=== PATIENT | male | born 1980 | race Caucasian/White ===

== ENCOUNTER 2017-01-06 12:26 | Emergency (ER) | payer SELFPAY ==
[~2017-01-06] VITALS: Ht 175.3 cm; Wt 53.2 kg
[2017-01-06 12:31] VITALS: BP 131/84; PULSE 95; RESP 18; TEMP 98.3
[2017-01-06 12:40] VITALS: O2SAT 99
--- NOTE | 2017-01-06 12:57 | PD ---
HPI Chief Complaint: Abdominal Pain Time Seen by Provider: 12:40 Travel History International Travel<30 days: No Contact w/Intl Traveler<30days: No Traveled to known affect area: No History of Present Illness HPI This patient has history of Crohn's disease. He doesn't follow with any physician or take medications or go to doctors. He has history of 2 small bowel resections. He reports she's having a flare of Crohn's. He is worried about obstruction. He's had no bowel movement for the last 3 days. He typically has multiple episodes of diarrhea daily as his baseline. He's had some low-grade discomfort and some nausea but no vomiting or fever. Symptoms severity is moderate. Duration 3 days. No alleviating factors. No exacerbating factors. PFSH Past Medical History Diminished Hearing: No Gastrointestinal Disorders: Yes (crohns) Immunizations Current: No Tetanus Vaccination: > 5 Years Influenza Vaccination: No Past Surgical History Abdominal Surgery: Yes (colon resection with ostomy reversal) Appendectomy: Yes Social History Alcohol Use: No Tobacco Use: Yes (02/28 pk) Substance Use: Yes (pot) Allergies-Medications (Allergen,Severity, Reaction): Coded Allergies: No Known Allergies (Unverified , 01/06/17) Reported Meds & Prescriptions Reported Meds & Active Scripts Active No Active Prescriptions or Reported Medications Review of Systems General / Constitutional: No: Fever Eyes: No: Visual changes HENT: No: Headaches Cardiovascular: No: Chest Pain or Discomfort Respiratory: No: Shortness of Breath Gastrointestinal: Positive: Nausea, Abdominal Pain, Constipation Genitourinary: No: Dysuria Musculoskeletal: No: Pain Skin: No Rash Neurologic: No: Weakness Psychiatric: No: Depression Endocrine: No: Polydipsia Hematologic/Lymphatic: No: Easy Bruising Physical Exam Narrative GENERAL: Well-nourished, well-developed patient with abdominal discomfort . SKIN: Focused skin assessment reveals no rash and nodules. Skin is Warm and dry. HEAD: Atraumatic. Normocephalic. EYES: Pupils equal and round. No scleral icterus. No injection or drainage. ENT: No nasal bleeding or discharge. Mucous membranes pink and moist. NECK: Trachea midline. No JVD. CARDIOVASCULAR: Regular rate and rhythm. No murmur appreciated. RESPIRATORY: No accessory muscle use. Clear to auscultation. Breath sounds equal bilaterally. GASTROINTESTINAL: Abdomen soft, mild diffuse tenderness without rebound or guarding. Well-healed surgical scars. nondistended. Hepatic and splenic margins not palpable. MUSCULOSKELETAL: No obvious deformities. No clubbing. No cyanosis. No edema. NEUROLOGICAL: Awake and alert. No obvious cranial nerve deficits. Motor grossly within normal limits. Normal speech. PSYCHIATRIC: Appropriate mood and affect; insight and judgment normal. Data Data Last Documented VS Vital Signs Date Time Temp Pulse Resp B/P (MAP) Pulse Ox O2 Delivery O2 Flow Rate FiO2 01/06/17 13:29 72 18 136/75 (95) 99 Room Air 01/06/17 12:31 98.3 Orders Orders Complete Blood Count With Diff (01/06/17 12:48) Comprehensive Metabolic Panel (01/06/17 12:48) Lipase (01/06/17 12:48) Prothrombin Time / Inr (Pt) (01/06/17 12:48) Act Partial Throm Time (Ptt) (01/06/17 12:48) Ct Abd/Pel W Iv Contrast(Rout) (01/06/17 12:48) Iv Access Insert/Monitor (01/06/17 12:48) Ecg Monitoring (01/06/17 12:48) Oximetry (01/06/17 12:48) Ondansetron Inj (Zofran Inj) (01/06/17 13:00) Sodium Chloride 0.9% Flush (Ns Flush) (01/06/17 13:00) Sodium Chlor 0.9% 1000 Ml Inj (Ns 1000 M (01/06/17 13:00) Iohexol 350 Inj (Omnipaque 350 Inj) (01/06/17 13:16) Labs Laboratory Tests Test 01/06/17 12:50 White Blood Count 12.6 TH/MM3 Red Blood Count 4.23 MIL/MM3 Hemoglobin 12.5 GM/DL Hematocrit 37.8 % Mean Corpuscular Volume 89.3 FL Mean Corpuscular Hemoglobin 29.5 PG Mean Corpuscular Hemoglobin Concent 33.0 % Red Cell Distribution Width 13.1 % Platelet Count 352 TH/MM3 Mean Platelet Volume 7.2 FL Neutrophils (%) (Auto) 78.1 % Lymphocytes (%) (Auto) 11.5 % Monocytes (%) (Auto) 6.1 % Eosinophils (%) (Auto) 0.6 % Basophils (%) (Auto) 3.7 % Neutrophils # (Auto) 9.7 TH/MM3 Lymphocytes # (Auto) 1.5 TH/MM3 Monocytes # (Auto) 0.8 TH/MM3 Eosinophils # (Auto) 0.1 TH/MM3 Basophils # (Auto) 0.5 TH/MM3 CBC Comment DIFF FINAL Differential Comment Prothrombin Time 10.6 SEC Prothromb Time International Ratio 1.0 RATIO Activated Partial Thromboplast Time 34.6 SEC Blood Urea Nitrogen 5 MG/DL Creatinine 0.66 MG/DL Random Glucose 102 MG/DL Total Protein 7.3 GM/DL Albumin 3.6 GM/DL Calcium Level 9.1 MG/DL Alkaline Phosphatase 55 U/L Aspartate Amino Transf (AST/SGOT) 8 U/L Alanine Aminotransferase (ALT/SGPT) 12 U/L Total Bilirubin 0.2 MG/DL Sodium Level 138 MEQ/L Potassium Level 3.2 MEQ/L Chloride Level 102 MEQ/L Carbon Dioxide Level 29.9 MEQ/L Estimat Glomerular Filtration Rate 138 ML/MIN Lipase 109 U/L [facility] Medical Decision Making Medical Screen Exam Complete: Yes Emergency Medical Condition: Yes Medical Record Reviewed: Yes Differential Diagnosis Obstruction, colitis, ileus Narrative Course I have reviewed the patient's electronic medical record. IV placed CBC is normal metabolic profile is normal except for mild hypokalemia LFT's are normal lipase is normal CT of abdomen and pelvis with IV contrast shows no obstruction. There is some thickening inflammation of the intestine near the ileum I gave him IV Zofran and 1 L normal saline IV I gave him injection of morphine and Solu-Medrol Clinically stable for outpatient follow-up. He has normal vitals Recommend GI follow-up I wrote him something for pain and nausea and some prednisone Diagnosis Primary Impression: Exacerbation of Crohn's disease Qualified Codes: K50.919 - Crohn's disease, unspecified, with unspecified complications Additional Instructions: The patient was advised to follow up with GI physician and return if they worsen. The patient was warned about potential sedation for the medications they will receive on prescription. Med/Other Pt SpecificInfo: Prescription(s) given Scripts No Active Prescriptions or Reported Meds Disposition: 01 DISCHARGE HOME Condition: Stable Luis Enrique Walker MD Jan 06, 2017 12:57
[2017-01-06] MEDS ORDERED: SODIUM CHLOR 0.9% 1000 ML INJ 1,000 ML IV ONE (13:00)
[2017-01-06] MEDS ORDERED: SODIUM CHLORIDE 0.9% FLUSH 10 ML FLUSH IV FLUSH PRN (13:00)
[2017-01-06] MEDS ORDERED: ONDANSETRON HCL 4 MG/2 ML VIAL IVP ONE (13:00)
[2017-01-06 13:01] LABS: AUTOMATED NEUTROPHIL # 9.7 TH/MM3 (1.8-7.7); BASOPHIL # 0.5 TH/MM3 (0-0.2); BASOPHIL % 3.7 % (0.0-2.0); EOSINOPHIL # 0.1 TH/MM3 (0-0.4); EOSINOPHIL % 0.6 % (0.0-4.0); HEMATOCRIT 37.8 % (39.0-51.0); HEMO FLAGS DIFF FINAL; LYMPH % 11.5 % (9.0-44.0); LYMPHOCYTE # 1.5 TH/MM3 (1.0-4.8); MEAN CELL VOLUME 89.3 FL (80.0-100.0); MEAN CORPUSCULAR HEMOGLOBIN 29.5 PG (27.0-34.0); MONO % 6.1 % (0.0-8.0); NEUT % 78.1 % (16.0-70.0); PLATELET COUNT 352 TH/MM3 (150-450); RED BLOOD COUNT 4.23 MIL/MM3 (4.50-5.90); RED CELL DISTRIBUTION WIDTH 13.1 % (11.6-17.2); WHITE BLOOD COUNT 12.6 TH/MM3 (4.0-11.0)
[2017-01-06 13:06] VITALS: BP 147/67; PULSE 82; RESP 18; O2SAT 99
[2017-01-06] MEDS ORDERED: IOHEXOL 350 MG/ML 10 ML VIAL (for RAD DIAG) IVCONTRAST ONE (13:16)
[2017-01-06 13:25] LABS: CHLORIDE 102 MEQ/L (98-107); POTASSIUM 3.2 MEQ/L (3.5-5.1); SODIUM (NA) 138 MEQ/L (136-145)
[2017-01-06 13:29] VITALS: BP 136/75; PULSE 72; RESP 18; O2SAT 99
[2017-01-06 13:29] LABS: ANION GAP 6 MEQ/L (5-15); BICARBONATE 29.9 MEQ/L (21.0-32.0); BLOOD UREA NITROGEN 5 MG/DL (7-18)
--- NOTE | 2017-01-06 13:30 | RADRPT ---
EXAM DATE/TIME: 01/06/2017 13:10 [facility] COMPARISON: No previous studies available for comparison. INDICATIONS : Right lower quadrant pain. Constipation x 3 days. IV CONTRAST: 85 cc Omnipaque 350 (iohexol) IV ORAL CONTRAST: No oral contrast ingested. RADIATION DOSE: 4.66 CTDIvol (mGy) MEDICAL HISTORY : Crohn's disease. SURGICAL HISTORY : Appendectomy. Colon resection with ostomy reversal. ENCOUNTER: Initial ACUITY: 3 days PAIN SCALE: 7/10 LOCATION: Right lower quadrant TECHNIQUE: Volumetric scanning of the abdomen and pelvis was performed. Using automated exposure control and ad justment of the mA and/or kV according to patient size, radiation dose was kept as low as reasonably achievable to obtain optimal diagnostic quality images. DICOM format image data is available electro nically for review and comparison. FINDINGS: LOWER LUNGS: The visualized lower lungs are clear. LIVER: Homogeneous density without lesion. There is no dilation of the biliary tree. No calcified gallston es. SPLEEN: Normal size without lesion. PANCREAS: Within normal limits. KIDNEYS: Normal in size and shape. There is no mass, stone or hydronephrosis. ADRENAL GLANDS: Within normal limits. VASCULAR: There is no aortic aneurysm. BOWEL/MESENTERY: Dystrophic calcifications are seen in the region of the terminal ileum in the right lower abdominal q uadrant. Just proximal to the calcifications, the ileum is thickened with some perienteric stranding concerning for a focal colitis. There is some distention of the small bowel in this location. He the colon appears radiographically intact throughout. ABDOMINAL WALL: Within normal limits. RETROPERITONEUM: There is no lymphadenopathy. BLADDER: No wall thickening or mass. REPRODUCTIVE: Within normal limits. INGUINAL: There is no lymphadenopathy or hernia. MUSCULOSKELETAL: Within normal limits for patient age. CONCLUSION: 1. Dystrophic calcifications in the region of the terminal ileum may represent a prior suture line. 2. Just proximal to the dystrophic type calcifications, the ileum is abnormally thickened and distend ed with perienteric stranding concerning for focal colitis. This is characteristic of the reported hi story of Crohn's disease. 3. Otherwise negative. No pneumoperitoneum. Kosta Conde MD on January 06, 2017 at 13:21 Board Certified Radiologist. This report was verified electronically.
[2017-01-06 13:31] LABS: APTT (PATIENT) 34.6 SEC (24.3-30.1); PROTHROMBIN TIME - PATIENT 10.6 SEC (9.8-11.6)
[2017-01-06 13:32] LABS: ALT (GPT) 12 U/L (12-78); AST (GOT) 8 U/L (15-37); GLOMERULAR FILTRATION RATE 138 ML/MIN (>89)
[2017-01-06 13:33] LABS: TOTAL BILIRUBIN ADULT 0.2 MG/DL (0.2-1.0)
[2017-01-06 13:35] LABS: ALKALINE PHOSPHATASE 55 U/L (45-117)
[2017-01-06] MEDS ORDERED: methylPREDNISolone SOD SUCC 125 MG/2 ML VIAL IV PUSH ONE (14:00)
[2017-01-06] MEDS ORDERED: MORPHINE SULFATE 8 MG/ML INJ IV PUSH ONE (14:00)
[2017-01-06] MEDS ORDERED: MORPHINE SULFATE 4 MG/ML INJ IV PUSH ONE (14:00)
[2017-01-06] MEDS ORDERED: ZOFR4TAB PO (14:06)
[2017-01-06] MEDS ORDERED: PERC5TAB12 PO (14:06)
[2017-01-06] MEDS ORDERED: PRED20 PO (14:06)
[2017-01-06 14:14] VITALS: BP 123/75; PULSE 72; RESP 16; O2SAT 98
== END 2017-01-06 14:56 | disposition home or self-care (01) ==
LOC: PHED 12:26
DX: K50.919 Crohn's disease, unspecified, with unspecified complications (principal); E87.6 Hypokalemia; R11.0 Nausea; F17.200 Nicotine dependence, unspecified, uncomplicated; Z87.19 Personal history of other diseases of the digestive system
CPT/HCPCS: 74177; 80053; 83690; 85025; 85610; 85730; 96361; 96374; 96375; 96376; 99285; J2270; J2405; J2930; J7030; Q9967

== ENCOUNTER 2017-01-10 11:40 | Inpatient (IN) | payer SELFPAY ==
[~2017-01-10] VITALS: Ht 175.3 cm; Wt 54.0 kg
[~2017-01-10 11:40] MED LIST: PERC5TAB12 PO; PRED20 PO; ZOFR4TAB PO
[2017-01-10 11:43] VITALS: BP 123/78; PULSE 74; RESP 20; TEMP 98; O2SAT 100
[2017-01-10] MEDS ORDERED: SODIUM CHLORIDE 0.9% FLUSH 10 ML FLUSH IV FLUSH PRN (12:00)
[2017-01-10] MEDS ORDERED: ONDANSETRON HCL 4 MG/2 ML VIAL IVP ONE (12:00)
[2017-01-10] MEDS ORDERED: MORPHINE SULFATE 4 MG/ML INJ IV PUSH ONE (12:00)
[2017-01-10] MEDS ORDERED: SODIUM CHLOR 0.9% 1000 ML INJ 1,000 ML IV SCH (12:00)
--- NOTE | 2017-01-10 12:14 | PD ---
HPI Chief Complaint: GI Complaint Time Seen by Provider: 11:52 Travel History International Travel<30 days: No Contact w/Intl Traveler<30days: No Traveled to known affect area: No History of Present Illness HPI Patient is a 40-year-old male with history of Crohn's disease, presents to emergency room with complaint of abdominal pain. Patient reports that he began to have lower abdominal pain 8 days ago, that he has been feeling nauseous, reports overall decreased oral intake, reports that he has been constipated. Patient reports that he has not followed-up with a simulation educator as he currently does not have any insurance. He reports that he was seen in the emergency room on January 06, 2017 with similar symptoms, he did have a CAT scan of his abdomen pelvis which shows symptoms of consistent with Crohn's disease.. Patient reports that since he has left, he has had intermittent lower abdominal pain. Patient reports that when he has these bouts of pain, pain is severe with increased nausea with no vomiting. Patient reports that pain feels like a cramping sensation to his lower abdomen. Reports no formed bowel movements, he did have a slightly water stool recently. Patient reports that he has had history of perforated appendicitis which led to a bowel resection as well as placement of an ostomy with reversal in 2002 in [place]. Patient with subjective fever and chills, no other complaints at this time. Patient reports that he is a past alcoholic, he has been sober for 4 months PFSH Past Medical History Diminished Hearing: No Gastrointestinal Disorders: Yes (crohns) Immunizations Current: No ?: Not Past Surgical History Abdominal Surgery: Yes (colon resection with ostomy reversal) Appendectomy: Yes Social History Alcohol Use: No Tobacco Use: Yes (02 27/ pk) Substance Use: Yes (pot) Allergies-Medications (Allergen,Severity, Reaction): Coded Allergies: No Known Allergies (Unverified , 01/10/17) Reported Meds & Prescriptions Reported Meds & Active Scripts Active Prednisone 20 Mg Tab 60 Mg PO DAILY 5 Days Take 40 mg (2 tablets) daily for 5 days Zofran (Ondansetron HCl) 4 Mg Tab 4 Mg PO Q6HR PRN Percocet (Oxycodone-Acetaminophen) 5-325 mg Tab 1 Tab PO Q6H PRN Review of Systems General / Constitutional: Positive: Fever (subjective fevers), Chills Eyes: No: Visual changes HENT: No: Headaches Cardiovascular: No: Chest Pain or Discomfort Respiratory: No: Shortness of Breath Gastrointestinal: Positive: Nausea, Abdominal Pain, Constipation, No: Vomiting , Diarrhea Genitourinary: No: Dysuria Musculoskeletal: No: Pain Skin: No Rash Neurologic: No: Weakness Psychiatric: No: Depression Endocrine: No: Polydipsia Hematologic/Lymphatic: No: Easy Bruising Physical Exam Narrative GENERAL: Moderate distress SKIN: Focused skin assessment warm/dry. HEAD: Atraumatic. Normocephalic. EYES: Pupils equal and round. No scleral icterus. No injection or drainage. ENT: No nasal bleeding or discharge. Mucous membranes pink and moist. NECK: Trachea midline. No JVD. CARDIOVASCULAR: Regular rate and rhythm. No murmur appreciated. RESPIRATORY: No accessory muscle use. Clear to auscultation. Breath sounds equal bilaterally. GASTROINTESTINAL: Abdomen soft, diffusely tender with rebound and guarding on exam. Hepatic and splenic margins not palpable. MUSCULOSKELETAL: No obvious deformities. No clubbing. No cyanosis. No edema. NEUROLOGICAL: Awake and alert. No obvious cranial nerve deficits. Motor grossly within normal limits. Normal speech. PSYCHIATRIC: Appropriate mood and affect; insight and judgment normal. Data Data Last Documented VS Vital Signs Date Time Temp Pulse Resp B/P (MAP) Pulse Ox O2 Delivery O2 Flow Rate FiO2 01/10/17 12:26 61 18 115/78 (90) 98 Room Air 01/10/17 11:43 98.0 Orders Orders Complete Blood Count With Diff (01/10/17 12:00) Comprehensive Metabolic Panel (01/10/17 12:00) Lipase (01/10/17 12:00) Prothrombin Time / Inr (Pt) (01/10/17 12:00) Act Partial Throm Time (Ptt) (01/10/17 12:00) Urinalysis - C+S If Indicated (01/10/17 12:00) Ct Abd/Pel W Iv Contrast(Rout) (01/10/17 12:00) Iv Access Insert/Monitor (01/10/17 12:00) Ecg Monitoring (01/10/17 12:00) Oximetry (01/10/17 12:00) NPO (01/10/17 12:00) Morphine Inj (Morphine Inj) (01/10/17 12:00) Ondansetron Inj (Zofran Inj) (01/10/17 12:00) Sodium Chlor 0.9% 1000 Ml Inj (Ns 1000 M (01/10/17 12:00) Sodium Chloride 0.9% Flush (Ns Flush) (01/10/17 12:00) Oral Contrast - Adult (01/10/17 12:05) Diatrizoate Liq (Md Queen Liq) (01/10/17 12:17) Hydromorphone Pf Inj (Dilaudid Pf Inj) (01/10/17 13:15) Potassium Chloride (Kcl) (01/10/17 13:15) Iohexol 350 Inj (Omnipaque 350 Inj) (01/10/17 13:51) Consult General Surgery (01/10/17 ) Labs Laboratory Tests Test 01/10/17 12:14 01/10/17 13:10 White Blood Count 12.4 TH/MM3 Red Blood Count 4.44 MIL/MM3 Hemoglobin 13.1 GM/DL Hematocrit 39.7 % Mean Corpuscular Volume 89.4 FL Mean Corpuscular Hemoglobin 29.4 PG Mean Corpuscular Hemoglobin Concent 32.9 % Red Cell Distribution Width 12.9 % Platelet Count 420 TH/MM3 Mean Platelet Volume 7.0 FL Neutrophils (%) (Auto) 75.8 % Lymphocytes (%) (Auto) 17.1 % Monocytes (%) (Auto) 6.2 % Eosinophils (%) (Auto) 0.2 % Basophils (%) (Auto) 0.7 % Neutrophils # (Auto) 9.4 TH/MM3 Lymphocytes # (Auto) 2.1 TH/MM3 Monocytes # (Auto) 0.8 TH/MM3 Eosinophils # (Auto) 0.0 TH/MM3 Basophils # (Auto) 0.1 TH/MM3 CBC Comment DIFF FINAL Differential Comment Prothrombin Time 10.6 SEC Prothromb Time International Ratio 1.0 RATIO Activated Partial Thromboplast Time 28.5 SEC Blood Urea Nitrogen 7 MG/DL Creatinine 0.78 MG/DL Random Glucose 87 MG/DL Total Protein 6.9 GM/DL Albumin 3.6 GM/DL Calcium Level 9.1 MG/DL Alkaline Phosphatase 48 U/L Aspartate Amino Transf (AST/SGOT) 7 U/L Alanine Aminotransferase (ALT/SGPT) 12 U/L Total Bilirubin 0.3 MG/DL Sodium Level 140 MEQ/L Potassium Level 3.0 MEQ/L Chloride Level 103 MEQ/L Carbon Dioxide Level 28.3 MEQ/L Anion Gap 9 MEQ/L Estimat Glomerular Filtration Rate 114 ML/MIN Lipase 279 U/L Urine Collection Type CLEAN CATCH Urine Color STRAW Urine Turbidity CLEAR Urine pH 8.0 Urine Specific Claude 1.003 Urine Protein NEG mg/dL Urine Glucose (UA) NEG mg/dL Urine Ketones NEG mg/dL Urine Occult Blood NEG Urine Nitrite NEG Urine Bilirubin NEG Urine Leukocyte Esterase NEG Urine Squamous Epithelial Cells 0-5 /hpf Microscopic Urinalysis Comment CULT NOT INDICATED MDM Medical Decision Making Medical Screen Exam Complete: Yes Emergency Medical Condition: Yes Medical Record Reviewed: Yes Interpretation(s) Vital Signs Date Time Temp Pulse Resp B/P (MAP) Pulse Ox O2 Delivery O2 Flow Rate FiO2 01/10/17 11:43 98.0 74 20 123/78 (93) 100 Differential Diagnosis Crohn's exacerbation, small bowel obstruction, electrolyte abnormality Narrative Course 36 year old male who presents to emergency room with complaints of lower abdominal pain with nausea, constipation for the past 8 days. Patient's prior records reviewed, he did have a CT of his abdomen and pelvis 4 days ago. Given his diffuse abdominal pain with rebound and guarding, I discussed need for repeat CT of the abdomen pelvis. I did review all the risks as well as benefits of the CT study with him in detail. During the course of the patients emergency department visit, the patients history, examination, and differential diagnosis were reviewed with the patient. The patient was placed on a monitor tech with oximetry and frequent blood pressure monitoring. The patient had a 20-gauge IV access obtained and blood work sent for analysis. The patient was initially provided IVF, IV Zofran and IV Morphine The patients laboratory studies were reviewed and remarkable for CBC & BMP Diagram 01/10/17 12:14 Total Protein 6.9, Albumin 3.6, Calcium Level 9.1, Alkaline Phosphatase 48, Aspartate Amino Transf (AST/SGOT) 7 L, Alanine Aminotransferase (ALT/SGPT) 12, Total Bilirubin 0.3 UA: Negative leuk esterase, negative ketones, negative nitrites 1315: patient re-evaluated, patient continued pain with no relief from IV morphine, IV dilaudid ordered for patient Radiology studies were reviewed and remarkable for: Last Impressions Abdomen/Pelvis CT 01/10/17 1200 Signed Impressions: Service Date/Time: Tuesday, January 10, 2017 13:45 - CONCLUSION: 1. Abnormal appearance of the distal ileum. There has been previous ileocecal anastomosis. There is transmural inflammatory change and at least high grade partial obstruction at the anastomosis with distended, dilated loops of ileum proximal to this. The loops of ileum measure approximately 4 cm in diameter. The overall size of this has worsened when compared to prior exam. There is a small amount of free fluid within the pelvis. Miguel Kennedy MD Case reviewed with Dr. Sosa, patient can see at [facility] for monitoring, he may need to be transferred to the [facility] for possible surgery if obstruction does not resolve on its own. Request GI consult. Will see patient in consult. Patient okay for no NG tube if patient is not nauseous and vomiting at this time. Diagnosis Primary Impression: Crohns disease Additional Impression: Bowel obstruction Admitting Information Admitting Physician Requests: Admit Alexa Somers DO Jan 10, 2017 12:14
[2017-01-10] MEDS ORDERED: DIATRIZOATE MEGLUM/DIATRIZOATE SOD 9 ML CUP ONE (12:17)
[2017-01-10 12:22] LABS: AUTOMATED NEUTROPHIL # 9.4 TH/MM3 (1.8-7.7); BASOPHIL # 0.1 TH/MM3 (0-0.2); BASOPHIL % 0.7 % (0.0-2.0); EOSINOPHIL % 0.2 % (0.0-4.0); HEMATOCRIT 39.7 % (39.0-51.0); HEMO FLAGS DIFF FINAL; LYMPH % 17.1 % (9.0-44.0); LYMPHOCYTE # 2.1 TH/MM3 (1.0-4.8); MEAN CELL VOLUME 89.4 FL (80.0-100.0); MEAN CORPUSCULAR HEMOGLOBIN 29.4 PG (27.0-34.0); MEAN CORPUSCULAR HGB CONC 32.9 % (32.0-36.0); MONO % 6.2 % (0.0-8.0); NEUT % 75.8 % (16.0-70.0); PLATELET COUNT 420 TH/MM3 (150-450); RED BLOOD COUNT 4.44 MIL/MM3 (4.50-5.90); RED CELL DISTRIBUTION WIDTH 12.9 % (11.6-17.2); WHITE BLOOD COUNT 12.4 TH/MM3 (4.0-11.0)
[2017-01-10 12:23] VITALS: O2SAT 96
[2017-01-10 12:26] VITALS: BP 115/78; PULSE 61; RESP 18; O2SAT 98
[2017-01-10 12:30] LABS: CHLORIDE 103 MEQ/L (98-107); SODIUM (NA) 140 MEQ/L (136-145)
[2017-01-10 12:36] LABS: APTT (PATIENT) 28.5 SEC (24.3-30.1); PROTHROMBIN TIME - PATIENT 10.6 SEC (9.8-11.6)
[2017-01-10 12:37] LABS: ANION GAP 9 MEQ/L (5-15); BICARBONATE 28.3 MEQ/L (21.0-32.0); BLOOD UREA NITROGEN 7 MG/DL (7-18)
[2017-01-10 12:40] LABS: ALT (GPT) 12 U/L (12-78); AST (GOT) 7 U/L (15-37); GLOMERULAR FILTRATION RATE 114 ML/MIN (>89)
[2017-01-10 12:41] LABS: TOTAL BILIRUBIN ADULT 0.3 MG/DL (0.2-1.0)
[2017-01-10 12:42] LABS: ALKALINE PHOSPHATASE 48 U/L (45-117)
[2017-01-10] MEDS ORDERED: POTASSIUM CHLORIDE 10 MEQ CONTROLLED RELEASE TAB PO ONE (13:15)
[2017-01-10] MEDS ORDERED: HYDROmorphone HCL PF 1 MG/ML VIAL IV PUSH ONE (13:15)
[2017-01-10 13:17] LABS: BLOOD, URINE NEG (NEG); GLUCOSE,URINE NEG (NEG); KETONE, URINE NEG (NEG); NITRITE,URINE NEG (NEG)
[2017-01-10 13:22] LABS: COMMENT (UR) CULT NOT INDICATED; CULTURE IF INDICATED CULT NOT INDICATED; METHOD OF COLLECTION CLEAN CATCH; SQUAMOUS EPITHELIAL CELL URINE 0-5 /hpf (0-5); URINE COLOR STRAW (YELLW/STRAW)
[2017-01-10] MEDS ORDERED: IOHEXOL 350 MG/ML 10 ML VIAL (for RAD DIAG) IVCONTRAST ONE (13:51)
--- NOTE | 2017-01-10 14:11 | RADRPT ---
EXAM DATE/TIME: 01/10/2017 13:45 [facility] COMPARISON: CT ABDOMEN & PELVIS W CONTRAST, January 06, 2017, 13:10. INDICATIONS : Diffuse abdominal pain with constipation for five days getting worse since last visit. IV CONTRAST: 90 cc Omnipaque 350 (iohexol) IV ORAL CONTRAST: Prescribed oral contrast ingested. RADIATION DOSE: 5.18 CTDIvol (mGy) MEDICAL HISTORY : Crohn's disease. SURGICAL HISTORY : Appendectomy. Colon surgery. ENCOUNTER: [facility] ACUITY: 4 - 6 days PAIN SCALE: 6/10 LOCATION: Bilateral abdomen/pelvis TECHNIQUE: Volumetric scanning of the abdomen and pelvis was performed. Using automated exposure control and ad justment of the mA and/or kV according to patient size, radiation dose was kept as low as reasonably achievable to obtain optimal diagnostic quality images. DICOM format image data is available electro nically for review and comparison. FINDINGS: The limited portion of the lung base visualized is clear. The appearance of the liver, spleen, pancreas, adrenal glands and kidneys is within normal limits. Examination of the visualized loops of small large bowel demonstrate a significantly dilated loop of distal ileum in the pelvis. There is focal inflammatory change and thickening of the distal portion o f ileum. There appears to have been an ileocecal anastomosis. The exam would suggest an inflammatory bowel disease with active disease resulting in high grade partial bowel obstruction the region of the anastomosis. This appears to worsened when compared to prior exam. There is a small amount of free f luid within the pelvis. No free air is identified. The visualized bony structures are intact. CONCLUSION: 1. Abnormal appearance of the distal ileum. There has been previous ileocecal anastomosis. There is t ransmural inflammatory change and at least high grade partial obstruction at the anastomosis with dis tended, dilated loops of ileum proximal to this. The loops of ileum measure approximately 4 cm in mikael meter. The overall size of this has worsened when compared to prior exam. There is a small amount of free fluid within the pelvis. Miguel Kennedy MD on January 10, 2017 at 13:55 Board Certified Radiologist. This report was verified electronically.
[2017-01-10] MEDS ORDERED: MAGNESIUM HYDROXIDE SUSP 30 ML CUP PO PRN (14:30)
[2017-01-10] MEDS ORDERED: ONDANSETRON HCL 4 MG/2 ML VIAL IVP PRN (14:30)
[2017-01-10] MEDS ORDERED: HYDROmorphone HCL PF 1 MG/ML VIAL IV PUSH PRN (14:30)
[2017-01-10] MEDS ORDERED: BISACODYL 10 MG SUPP RECTAL PRN (14:30)
[2017-01-10] MEDS ORDERED: SENNOSIDES 8.6 MG TAB PO PRN (14:30)
[2017-01-10] MEDS ORDERED: LACTULOSE SYRUP 20 GM/30 ML CUP PO PRN (14:30)
[2017-01-10] MEDS ORDERED: NALOXONE HCL 0.4 MG/ML AMP IV PUSH PRN (14:30)
[2017-01-10 14:37] VITALS: BP 114/77; PULSE 64; RESP 18; O2SAT 97
[2017-01-10] MEDS: SODIUM CHLOR 0.9% 1000 ML INJ 1,000 ML IV SCH (14:51)
[2017-01-10] MEDS: CIPROFLOXACIN 200 MG PREMIX 100 ML IV SCH (14:51)
[2017-01-10 15:50] VITALS: BP 130/88; PULSE 54; RESP 16; TEMP 98.6; O2SAT 99
[2017-01-10] MEDS: methylPREDNISolone SOD SUCC 125 MG/2 ML VIAL IV PUSH SCH ×2 (15:55→20:14)
[2017-01-10] MEDS: metroNIDAZOLE 500 MG INJ 100 ML IV SCH ×2 (15:56→21:25)
[2017-01-10] MEDS: HYDROmorphone HCL PF 1 MG/ML VIAL IV PUSH PRN ×3 (16:09→23:25)
[2017-01-10 20:00] VITALS: BP 129/85; PULSE 70; RESP 18; TEMP 98.2; O2SAT 96
[2017-01-10] MEDS: SODIUM CHLORIDE 0.9% FLUSH 10 ML FLUSH IV FLUSH SCH (20:16)
[2017-01-10] MEDS ORDERED: PEG (High)/E-LYTE SOLN 4000 ML BTL PO ONE (20:30)
--- NOTE | 2017-01-10 20:59 | MB ---
cc: DEQUAN MISHRA M.D. DATE OF CONSULTATION 01/10/2017 DATE OF [address] Coffey REASON FOR REFERRAL Abdominal pain. HISTORY Thank you for the consultation. A 36-year-old male who has history of Crohn disease diagnosed in 10/2002 after sudden onset of abdominal pain and had surgical removal of his ileum and ascending colon with his appendix and diagnosed with Crohn disease at that time. Since then the patient never received treatment because of no insurance. He does not have a primary care. He usually has a few episodes a year of pain and nausea and vomiting that he deals with it with pain management. He usually has three to four bowel movements that are loose. The patient was doing okay, always has chronic pain but then the pain was very severe. In the last 8 days he did not have any bowel movement and he was feeling nauseated so he came to the emergency room because of that. CT scan showed findings consistent with Crohn disease in the anastomotic area. The patient was laying, does not seem comfortable in bed. He said he is frustrated because of his situation. He is not taking any medication for his condition. He has reported that he had chills but never had his temperature taken. PAST SURGICAL HISTORY Next surgery colon resection with ostomy reversal. appendectomy. SOCIAL HISTORY Positive for tobacco 1-1/2 packs per day and he smoked marijuana. No alcohol. PAST MEDICAL HISTORY Significant for Crohn disease. ALLERGIES No known drug allergy. MEDICATIONS The patient reported that he is taking prednisone but the patient stated that he was not taking anything previously. REVIEW OF SYSTEMS All 12-point negative except abdominal pain, questionable fever and nausea. PHYSICAL EXAMINATION GENERAL: Alert, oriented. No acute distress. VITAL SIGNS: Stable. No fever. HEENT: Pupils are round and reactive to light. NECK: Supple. CHEST: Clear to auscultation and percussion. CARDIOVASCULAR: Regular rate and rhythm. No murmur or gallops. ABDOMEN: Diffuse tenderness in the right lower quadrant and almost to the midline with some rebound. No hepatosplenomegaly. Positive bowel sounds. EXTREMITIES: No edema, clubbing or cyanosis. NEUROLOGIC: Neurologically intact. PSYCHOLOGIC: Appropriate. LABORATORY DATA White count 12.4, hemoglobin and 13.1, platelet 420. INR 1.0. Chemistry normal. Medication reviewed in the chart. He was started on Solu-Medrol and pain medication. ASSESSMENT/PLAN 1. A 36-year-old male who has history of Crohn disease not treated, came with abdominal pain and change in bowel habit. He usually h as four bowel movements daily, now he has not had any in the last 8 days and with significant tenderness. I agree with starting the prednisone. I had a long discussion with the patient and his family about the need to receive medication on a regular basis even after he gets discharged. Also we talked about having to stop the smoking because it has negative effect on Crohn disease. 2. I will do a colonoscopy tomorrow and evaluate his anastomosis to make sure there is at least no significant stricture that requires surgery. Also will try to clear his colon from stools since he did not have for a while. 3. The patient understood the plan and we will see how he does with the prep and plan the colonoscopy for tomorrow. MD DUANE Alamo/KK /8:23 PM /8:41 PM
--- NOTE | 2017-01-10 21:49 | MB ---
cc: ELIZABETH MAHAJAN M.D. DATE OF CONSULTATION 01/10/17 REASON FOR CONSULTATION Small bowel obstruction. HISTORY OF PRESENT ILLNESS The patient is a 40-year-old male with a history of Crohn's disease who developed increasing abdominal pain. He was seen in the emergency room on January 06 with similar symptoms which showed a CT with symptoms consistent with Crohn's disease. The patient has had intermittent lower abdominal pain since leaving and has had increasing pain. The patient has subjective fevers and chills with no other complaints. Last bowel movement was watery stool yesterday. PAST MEDICAL HISTORY Significant for past history of alcoholism, been sober for four months. He has had colon resection with ostomy reversal six months later. SOCIAL HISTORY The patient smokes one and a half packs per day and uses marijuana periodically. ALLERGIES He has no known allergies. MEDICATIONS Include: 1. Prednisone 20 milligrams tablets 60 milligrams daily for 5 days, 40 milligrams for 5 days. 2. Zofran 4 milligrams p.r.n. 3. Percocet 5 q. 6 p.r.n. REVIEW OF SYSTEMS 12 point review of systems is negative except as indicated above. PHYSICAL EXAMINATION GENERAL: Reveals a thin male who appears pale and had two waves of pain with crampy pain that occurred for about 30 seconds while I was in the room. VITAL SIGNS: Blood pressure 129/85, pulse 70, respirations 18, temperature 98.2, 96% sat on room air. HEENT: Sclerae anicteric. CHEST: Clear to auscultation. CARDIAC: Reveals regular rate and rhythm. ABDOMEN: Soft with a well-healed scar extending from the midline just above the umbilicus down to the symphysis pubis. There is also a right lower quadrant well-healed scar as well. There are no hernias noted. The patient is tender in the right lower quadrant with minimal guarding. The patient does not have peritoneal signs at this time. EXTREMITIES: Pulses are intact. LABORATORY DATA WBC 12.4 with 76% neutrophils. BUN and creatinine are normal at 7 and 0.78. Liver function tests are essentially within normal limits. Urinanalysis is negative. INR is 1.0. IMAGING STUDIES Imaging demonstrates some thickened small bowel with abnormal appearance of the distal ileum with previous ileocecal anastomosis with at least a high grade partial obstruction at the anastomosis with distended dilated loops of ileum proximal to this. ASSESSMENT Active Crohn's disease with near obstruction. PLAN GI service has seen the patient and are attempting to perform colonoscopy. If the patient is unable to tolerate the prep, he will need to be taken to the operating room for resection. I have discussed briefly with the patient and an older man present in the room that surgery would likely be an open procedure and not laparoscopic. They vocalize understanding. The patient will be kept NPO except for medications with sips. CBC and BMP have been ordered for the morning. MD QIAN Clements/ALBERTINA /9:30 PM /9:37 PM
[2017-01-10] MEDS ORDERED: SODIUM CHLORID 0.9% 500 ML IV PRN (22:45)
[2017-01-10] MEDS ORDERED: POVIDONE IODINE 5% (ANTISEPSIS KIT) 4 APPLICATIONS EACH NARE PRN (22:45)
[2017-01-10] MEDS ORDERED: INSULIN HUMAN REGULAR 1,000 UNITS/10 ML VIAL SQ PRN (22:45)
[2017-01-10] MEDS ORDERED: METOPROLOL TARTRATE 25 MG TAB PO PRN (22:45)
[2017-01-10] MEDS ORDERED: LACTATED RINGER'S 1000 ML IV PRN (22:45)
[2017-01-10] MEDS ORDERED: CHLORHEXIDINE GLUCONATE 2 % 1 PACK (2 CLOTHS) TOPICAL PRN (22:45)
[2017-01-10] MEDS: SODIUM CHLORIDE 0.9% FLUSH 10 ML FLUSH IV FLUSH PRN (23:25)
[2017-01-11] VITALS: BP 123/78; PULSE 63; RESP 19; TEMP 98.2; O2SAT 97
[2017-01-11] MEDS: SODIUM CHLORIDE 0.9% FLUSH 10 ML FLUSH IV FLUSH PRN ×3 (02:29→05:55)
[2017-01-11] MEDS: HYDROmorphone HCL PF 1 MG/ML VIAL IV PUSH PRN ×3 (02:31→09:46)
[2017-01-11] MEDS: CIPROFLOXACIN 200 MG PREMIX 100 ML IV SCH ×2 (02:46→14:50)
[2017-01-11 04:00] VITALS: BP 117/76; PULSE 72; RESP 18; TEMP 97.6; O2SAT 96
[2017-01-11] MEDS: metroNIDAZOLE 500 MG INJ 100 ML IV SCH ×4 (04:54→21:05)
[2017-01-11] MEDS: SODIUM CHLOR 0.9% 1000 ML INJ 1,000 ML IV SCH ×3 (05:56→20:37)
[2017-01-11 06:54] LABS: AUTOMATED NEUTROPHIL # 10.6 TH/MM3 (1.8-7.7); BASOPHIL # 0.1 TH/MM3 (0-0.2); BASOPHIL % 0.4 % (0.0-2.0); EOSINOPHIL % 0.1 % (0.0-4.0); HEMATOCRIT 38.1 % (39.0-51.0); HEMO FLAGS DIFF FINAL; LYMPH % 9.7 % (9.0-44.0); LYMPHOCYTE # 1.2 TH/MM3 (1.0-4.8); MEAN CELL VOLUME 88.9 FL (80.0-100.0); MEAN CORPUSCULAR HEMOGLOBIN 30.2 PG (27.0-34.0); MONO % 5.4 % (0.0-8.0); NEUT % 84.4 % (16.0-70.0); PLATELET COUNT 430 TH/MM3 (150-450); RED BLOOD COUNT 4.29 MIL/MM3 (4.50-5.90); RED CELL DISTRIBUTION WIDTH 13.6 % (11.6-17.2); WHITE BLOOD COUNT 12.6 TH/MM3 (4.0-11.0)
[2017-01-11] MEDS ORDERED: MAGNESIUM CITRATE SOLN 300 ML BTL PO ONE (07:00)
[2017-01-11 07:12] LABS: BICARBONATE 24.7 MEQ/L (21.0-32.0)
--- NOTE | 2017-01-11 07:48 | HHI.GIFU ---
Subjective Remarks Patient still laying in bed little bit more comfortable but still complaining of pain, did not have any bowel movements with the preparation which he did not finish completely Objective Vitals I&O Vital Signs Date Time Temp Pulse Resp B/P (MAP) Pulse Ox O2 Delivery O2 Flow Rate FiO2 01/11/17 06:55 18 01/11/17 04:00 97.6 72 18 117/76 (90) 96 01/11/17 00:00 98.2 63 19 123/78 (93) 97 01/10/17 20:00 98.2 70 18 129/85 (100) 96 01/10/17 15:50 98.6 54 16 130/88 (102) 99 01/10/17 15:31 01/10/17 14:37 64 18 114/77 (89) 97 Room Air 01/10/17 12:26 61 18 115/78 (90) 98 Room Air 01/10/17 12:23 96 01/10/17 12:23 18 01/10/17 11:43 98.0 74 20 123/78 (93) 100 I/O 01/10/17 01/10/17 01/10/17 01/11/17 01/11/17 01/11/17 07:00 15:00 23:00 07:00 15:00 23:00 Intake Total 1000 ml 363 ml 1820 ml Output Total 300 ml Balance 1000 ml 63 ml 1820 ml Intake Oral 0 ml 520 ml IV Total 1000 ml 363 ml 1300 ml Output Urine Total 300 ml # Voids 2 # Bowel Movements 0 Laboratory Laboratory Tests Test 01/10/17 12:14 01/10/17 13:10 01/11/17 05:30 White Blood Count 12.4 12.6 Red Blood Count 4.44 4.29 Hemoglobin 13.1 13.0 Hematocrit 39.7 38.1 Mean Corpuscular Volume 89.4 88.9 Mean Corpuscular Hemoglobin 29.4 30.2 Mean Corpuscular Hemoglobin Concent 32.9 34.0 Red Cell Distribution Width 12.9 13.6 Platelet Count 420 430 Mean Platelet Volume 7.0 7.3 Neutrophils (%) (Auto) 75.8 84.4 Lymphocytes (%) (Auto) 17.1 9.7 Monocytes (%) (Auto) 6.2 5.4 Eosinophils (%) (Auto) 0.2 0.1 Basophils (%) (Auto) 0.7 0.4 Neutrophils # (Auto) 9.4 10.6 Lymphocytes # (Auto) 2.1 1.2 Monocytes # (Auto) 0.8 0.7 Eosinophils # (Auto) 0.0 0.0 Basophils # (Auto) 0.1 0.1 CBC Comment DIFF FINAL DIFF FINAL Differential Comment Prothrombin Time 10.6 Prothromb Time International Ratio 1.0 Activated Partial Thromboplast Time 28.5 Blood Urea Nitrogen 7 9 Creatinine 0.78 0.57 Random Glucose 87 94 Total Protein 6.9 Albumin 3.6 Calcium Level 9.1 8.9 Alkaline Phosphatase 48 Aspartate Amino Transf (AST/SGOT) 7 Alanine Aminotransferase (ALT/SGPT) 12 Total Bilirubin 0.3 Sodium Level 140 140 Potassium Level 3.0 4.0 Chloride Level 103 105 Carbon Dioxide Level 28.3 24.7 Anion Gap 9 10 Estimat Glomerular Filtration Rate 114 164 Lipase 279 Urine Collection Type CLEAN CATCH Urine Color STRAW Urine Turbidity CLEAR Urine pH 8.0 Urine Specific [place] 1.003 Urine Protein NEG Urine Glucose (UA) NEG Urine Ketones NEG Urine Occult Blood NEG Urine Nitrite NEG Urine Bilirubin NEG Urine Leukocyte Esterase NEG Urine Squamous Epithelial Cells 0-5 Microscopic Urinalysis Comment CULT NOT INDICATED Physical Exam HEENT: Pupils round and reactive to light; normocephalic; atraumatic; no jaundice. Throat is clear. NECK: Neck is supple, no JVD, no lymphadenopathy. CHEST: Chest is clear to auscultation and percussion. CARDIAC: Regular rate and rhythm with no murmur gallop or rubs. ABDOMEN: Soft, nondistended, significant tenderness mostly in the right lower quadrant but also in the mid abdomen; no hepatosplenomegaly; bowel sounds are present in all four quadrants. EXTREMITIES: No clubbing, cyanosis, or edema. SKIN: Normal; no rash; no jaundice. 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 Assessment and Plan Plan Patient has history of Crohn disease, noncompliant, no medication as an outpatient came with severe abdominal pain and abnormal CT scan He was supposed to have a colonoscopy today but did not have success with his bowel prep We will repeat the prep for tomorrow to attempt another colonoscopy Also he may end up needing surgical intervention Discuss with Temitope Roland MD Jan 11, 2017 07:48
[2017-01-11 07:50] VITALS: BP 127/79; PULSE 82; RESP 20; TEMP 99.5; O2SAT 97
[2017-01-11] MEDS: SODIUM CHLORIDE 0.9% FLUSH 10 ML FLUSH IV FLUSH SCH ×2 (08:15→20:37)
[2017-01-11] MEDS: methylPREDNISolone SOD SUCC 125 MG/2 ML VIAL IV PUSH SCH ×2 (08:15→20:37)
[2017-01-11] MEDS ORDERED: PNEUMOCOCCAL POLYVALENT INJ 25 MCG/0.5 ML SYR IM ONE (10:00)
[2017-01-11] MEDS ORDERED: INFLUENZA VIRUS VACCINE (QUADRIVALENT) 0.5 ML SYR IM ONE (10:00)
--- NOTE | 2017-01-11 11:44 | HHI.HP ---
[facility] Primary Care Physician No Primary Care Physician Admission Diagnosis Crohn's disease with high-grade partial obstruction Diagnoses: Travel History International Travel<30 Days: No Contact w/Intl Traveler <30 Da: No Traveled to Known Affected Are: No History of Present Illness This is a very pleasant 36-year-old male with past medical history of Crohn's disease diagnosed in 2002 after he suffered appendicitis with rupture. At that time he had resection of ascending colon with ostomy bag and reversal 6 months later. Patient unfortunately does not have insurance and so has never been able to get on immune modulating therapy for the Crohn's disease. Normally he has about 3-4 exacerbations per year. He has chronic loose stools. Patient has had severe cramping right lower quadrant and lower abdominal pain intermittent over the past 6 days. He also has not had a bowel movement in 6 days. Associated with nausea but no vomiting. No alleviating factors. Patient presented to the emergency department last night. Abdominal CT scan showed previous ileocecal anastomosis with transmural inflammatory change at the anastomosis with at least a high-grade partial obstruction at the anastomosis with dilated loops of ileum proximal to this. Overnight the patient has continued to have cramping abdominal pain. He states that the Dilaudid wears off after 3 hours. He requested Dilaudid be scheduled as he is having a delay in the nurses bring it to him. The patient has not had any further vomiting. GI and general surgery had seen the patient. Bowel prep was ordered for him to undergo colonoscopy today however he was not able to drink much of the prep. Bowel prep again ordered 4 times to undergo colonoscopy tomorrow. If he fails this he may need to have surgery. Review of Systems Constitutional: DENIES: Fever, Chills Eyes: DENIES: Blurred vision Ears, nose, mouth, throat: DENIES: Throat pain, Odynophagia Respiratory: DENIES: Cough, Shortness of breath Cardiovascular: DENIES: Chest pain, Palpitations Gastrointestinal: COMPLAINS OF: Abdominal pain, Constipation, Nausea, Vomiting Genitourinary: DENIES: Urgency, Dysuria Musculoskeletal: DENIES: Back pain, Neck pain Integumentary: DENIES: Pruritus, Rash Hematologic/lymphatic: DENIES: Lymphadenopathy Neurologic: DENIES: Abnormal gait, Headache Psychiatric: DENIES: Anxiety, Confusion Past Family Social History Past Medical History As per history of present illness Reported Medications Allergies Coded Allergies Type Severity Reaction Last Updated Verified No Known Allergies 01/10/17 No Active Scripts Medications Dose Route/Sig Max Daily Dose Days Date Category Dose Instructions Prednisone 20 Mg Tab 60 Mg PO DAILY 5 01/06/17 Rx Take 40 mg (2 tablets) daily for 5 days Zofran (Ondansetron HCl) 4 Mg Tab 4 Mg PO Q6HR PRN 01/06/17 Rx Percocet (Oxycodone-Acetaminophen) 5-325 mg Tab 1 Tab PO Q6H PRN 01/06/17 Rx Allergies: Coded Allergies: No Known Allergies (Unverified , 01/10/17) Family History Negative for Crohn's disease. Social History Previous alcohol abuse however he is not had anything to drink in 6 months. He does smoke tobacco. Physical Exam Vital Signs Vital Signs Date Time Temp Pulse Resp B/P (MAP) Pulse Ox O2 Delivery O2 Flow Rate FiO2 01/11/17 07:50 99.5 82 20 127/79 (95) 97 01/11/17 06:55 18 01/11/17 04:00 97.6 72 18 117/76 (90) 96 01/11/17 00:00 98.2 63 19 123/78 (93) 97 01/10/17 20:00 98.2 70 18 129/85 (100) 96 01/10/17 15:50 98.6 54 16 130/88 (102) 99 01/10/17 15:31 01/10/17 14:37 64 18 114/77 (89) 97 Room Air 01/10/17 12:26 61 18 115/78 (90) 98 Room Air 01/10/17 12:23 96 01/10/17 12:23 18 Physical Exam GENERAL: Malnourished, cachectic appearing pale male patient. SKIN: Warm and dry. HEAD: Normocephalic. EYES: No scleral icterus. No injection or drainage. NECK: Supple, trachea midline. No JVD or lymphadenopathy. CARDIOVASCULAR: Regular rate and rhythm without murmurs, gallops, or rubs. RESPIRATORY: Breath sounds equal bilaterally. No accessory muscle use. GASTROINTESTINAL: Bowel sounds hypoactive. Abdomen soft, tender to palpation throughout without guarding, more tender in the right lower quadrant. EXTREMITIES: No cyanosis, or edema. NEUROLOGICAL: Awake, alert, and oriented x 3. Non-focal. Laboratory Laboratory Tests Test 01/10/17 12:14 01/10/17 13:10 01/11/17 05:30 White Blood Count 12.4 12.6 Red Blood Count 4.44 4.29 Hemoglobin 13.1 13.0 Hematocrit 39.7 38.1 Mean Corpuscular Volume 89.4 88.9 Mean Corpuscular Hemoglobin 29.4 30.2 Mean Corpuscular Hemoglobin Concent 32.9 34.0 Red Cell Distribution Width 12.9 13.6 Platelet Count 420 430 Mean Platelet Volume 7.0 7.3 Neutrophils (%) (Auto) 75.8 84.4 Lymphocytes (%) (Auto) 17.1 9.7 Monocytes (%) (Auto) 6.2 5.4 Eosinophils (%) (Auto) 0.2 0.1 Basophils (%) (Auto) 0.7 0.4 Neutrophils # (Auto) 9.4 10.6 Lymphocytes # (Auto) 2.1 1.2 Monocytes # (Auto) 0.8 0.7 Eosinophils # (Auto) 0.0 0.0 Basophils # (Auto) 0.1 0.1 CBC Comment DIFF FINAL DIFF FINAL Differential Comment Prothrombin Time 10.6 Prothromb Time International Ratio 1.0 Activated Partial Thromboplast Time 28.5 Blood Urea Nitrogen 7 9 Creatinine 0.78 0.57 Random Glucose 87 94 Total Protein 6.9 Albumin 3.6 Calcium Level 9.1 8.9 Alkaline Phosphatase 48 Aspartate Amino Transf (AST/SGOT) 7 Alanine Aminotransferase (ALT/SGPT) 12 Total Bilirubin 0.3 Sodium Level 140 140 Potassium Level 3.0 4.0 Chloride Level 103 105 Carbon Dioxide Level 28.3 24.7 Anion Gap 9 10 Estimat Glomerular Filtration Rate 114 164 Lipase 279 Urine Collection Type CLEAN CATCH Urine Color STRAW Urine Turbidity CLEAR Urine pH 8.0 Urine Specific [place] 1.003 Urine Protein NEG Urine Glucose (UA) NEG Urine Ketones NEG Urine Occult Blood NEG Urine Nitrite NEG Urine Bilirubin NEG Urine Leukocyte Esterase NEG Urine Squamous Epithelial Cells 0-5 Microscopic Urinalysis Comment CULT NOT INDICATED Result Diagram: 01/11/1752901/11/17 0530 Imaging Last Impressions Abdomen/Pelvis CT 01/10/17 1200 Signed Impressions: Service Date/Time: Tuesday, January 10, 2017 13:45 - CONCLUSION: 1. Abnormal appearance of the distal ileum. There has been previous ileocecal anastomosis. There is transmural inflammatory change and at least high grade partial obstruction at the anastomosis with distended, dilated loops of ileum proximal to this. The loops of ileum measure approximately 4 cm in diameter. The overall size of this has worsened when compared to prior exam. There is a small amount of free fluid within the pelvis. Miguel Kennedy MD Caprini VTE Risk Assessment Caprini VTE Risk Assessment: No/Low Risk (score <= 1) Caprini Risk Assessment Model Point Value = 1 Point Value = 2 Point Value = 3 Point Value = 5 Age 41-60 Minor surgery BMI > 25 kg/m2 Swollen legs Varicose veins or History of unexplained or recurrent spontaneous Oral contraceptives or hormone replacement Sepsis (< 1 month) Serious lung disease, including pneumonia (< 1 month) Abnormal pulmonary function Acute myocardial infarction Congestive heart failure (< 1 month) History of inflammatory bowel disease Medical patient at bed rest Age 61-74 Arthroscopic surgery Major open surgery (> 45 min) Laparoscopic surgery (> 45 min) Malignancy Confined to bed (> 72 hours) Immobilizing plaster cast Central venous access Age >= 75 History of VTE Family history of VTE Factor V Leiden Prothrombin [id number] Lupus anticoagulant Anticardiolipin antibodies Elevated serum homocysteine Heparin-induced thrombocytopenia Other congenital or acquired thrombophilia Stroke (< 1 month) Elective arthroplasty Hip, pelvis, or leg fracture Acute spinal cord injury (< 1 month) Prophylaxis Regimen Total Risk Factor Score Risk Level Prophylaxis Regimen 0-1 Low Early ambulation 2 Moderate Order ONE of the following: *Sequential Compression Device (SCD) *Heparin 5000 units SQ BID 3-4 Higher Order ONE of the following medications: *Heparin 5000 units SQ TID *Enoxaparin/Lovenox 40 mg SQ daily (WT < 150 kg, CrCl > 30 mL/min) *Enoxaparin/Lovenox 30 mg SQ daily (WT < 150 kg, CrCl > 10-29 mL/min) *Enoxaparin/Lovenox 30 mg SQ BID (WT < 150 kg, CrCl > 30 mL/min) AND/OR *Sequential Compression Device (SCD) 5 or more Highest Order ONE of the following medications: *Heparin 5000 units SQ TID (Preferred with Epidurals) *Enoxaparin/Lovenox 40 mg SQ daily (WT < 150 kg, CrCl > 30 mL/min) *Enoxaparin/Lovenox 30 mg SQ daily (WT < 150 kg, CrCl > 10-29 mL/min) *Enoxaparin/Lovenox 30 mg SQ BID (WT < 150 kg, CrCl > 30 mL/min) AND *Sequential Compression Device (SCD) Assessment and Plan Problem List: (1) Crohns disease ICD Code: K50.90 - Crohn's disease, unspecified, without complications Status: Acute (2) Bowel obstruction ICD Code: K56.609 - Unspecified intestinal obstruction, unspecified as to partial versus complete obstruction Status: Acute Assessment and Plan -High grade partial small bowel obstruction at the distal ileum at the site of previous ileocecal anastomosis in a patient with history of Crohn's disease - appreciate general surgery and gastroenterology following this patient. We'll continue him on Solu-Medrol and antibiotics Cipro and Flagyl. Patient is undergoing prep for colonoscopy tomorrow in an attempt to avoid surgery. If he is not able to tolerate the prep will need surgery. Continue pain control. Antiemetics as needed. IV fluids. -Tobacco use. Cessation counseled. -DVT prophylaxis with SCDs. Yumiko Coffey MD Jan 11, 2017 11:44
[2017-01-11 11:50] VITALS: BP 124/76; PULSE 83; RESP 20; TEMP 98.5; O2SAT 96
[2017-01-11] MEDS ORDERED: PEG (High)/E-LYTE SOLN 4000 ML BTL PO ONE (12:00)
[2017-01-11] MEDS: HYDROmorphone HCL PF 1 MG/ML VIAL IV PUSH SCH ×2 (12:53→14:58)
--- NOTE | 2017-01-11 15:08 | HHI.PR ---
cc: Jersey Sosa MD Subjective Subjective Notes Resting in bed Was not able to finish prep last night before MN; going to drink prep today for colonoscopy tomorrow Better better today Objective Vitals/I&O Vital Signs Date Time Temp Pulse Resp B/P (MAP) Pulse Ox O2 Delivery O2 Flow Rate FiO2 01/11/17 11:50 98.5 83 20 124/76 (92) 96 01/10/17 14:37 Room Air Labs Laboratory Tests Test 01/11/17 05:30 White Blood Count 12.6 Red Blood Count 4.29 Hemoglobin 13.0 Hematocrit 38.1 Mean Corpuscular Volume 88.9 Mean Corpuscular Hemoglobin 30.2 Mean Corpuscular Hemoglobin Concent 34.0 Red Cell Distribution Width 13.6 Platelet Count 430 Mean Platelet Volume 7.3 Neutrophils (%) (Auto) 84.4 Lymphocytes (%) (Auto) 9.7 Monocytes (%) (Auto) 5.4 Eosinophils (%) (Auto) 0.1 Basophils (%) (Auto) 0.4 Neutrophils # (Auto) 10.6 Lymphocytes # (Auto) 1.2 Monocytes # (Auto) 0.7 Eosinophils # (Auto) 0.0 Basophils # (Auto) 0.1 CBC Comment DIFF FINAL Differential Comment Blood Urea Nitrogen 9 Creatinine 0.57 Random Glucose 94 Calcium Level 8.9 Sodium Level 140 Potassium Level 4.0 Chloride Level 105 Carbon Dioxide Level 24.7 Anion Gap 10 Estimat Glomerular Filtration Rate 164 Cardiovascular: Regular Lungs: Clear Abdomen: Other (multiple well healed incisions on abdomen; soft; thin abdomen; non tender to palpation ) Extremities: No edema A/P Assessment and Plan 36 year old male with history of Crohn's disease with abdominal pain -Will plan for prep today and colonoscopy tomorrow -If needs surgical intervention would be to be transferred to [facility] -Will monitor for now and follow closely Attending Note - Dr. Sosa Discussed with Dr. Chung; if unable to tolerate colon prep, will need surgery. Abdomen [employer] The exam, history, and the medical decision-making described in the above note were completed with the assistance of the mid-level provider. I reviewed and agree with the findings presented. I attest that I had a [id number] encounter with the patient on the same day, and personally performed and documented my assessment and findings in the medical record. Angelica Au Jan 11, 2017 15:08 Jersey Sosa MD Jan 11, 2017 16:10
[2017-01-11 15:50] VITALS: BP 124/75; PULSE 74; RESP 20; TEMP 98.2; O2SAT 95
[2017-01-11] MEDS: HYDROmorphone HCL PF 0.5 MG/0.5 ML SYRINGE IV PUSH SCH ×2 (18:15→21:07)
[2017-01-11 20:00] VITALS: BP 120/79; PULSE 58; RESP 19; TEMP 97.8; O2SAT 97
[2017-01-12] VITALS: BP 118/72; PULSE 61; RESP 17; TEMP 97.9; O2SAT 96
[2017-01-12] MEDS: HYDROmorphone HCL PF 0.5 MG/0.5 ML SYRINGE IV PUSH SCH ×3 (01:24→06:18)
[2017-01-12] MEDS: CIPROFLOXACIN 200 MG PREMIX 100 ML IV SCH ×2 (02:00→14:38)
[2017-01-12] MEDS: metroNIDAZOLE 500 MG INJ 100 ML IV SCH ×4 (04:00→22:27)
[2017-01-12] MEDS: SODIUM CHLOR 0.9% 1000 ML INJ 1,000 ML IV SCH ×2 (06:25→14:38)
[2017-01-12 06:48] LABS: AUTOMATED NEUTROPHIL # 8.4 TH/MM3 (1.8-7.7); BASOPHIL % 0.1 % (0.0-2.0); EOSINOPHIL % 0.1 % (0.0-4.0); HEMATOCRIT 37.1 % (39.0-51.0); HEMO FLAGS DIFF FINAL; LYMPH % 10.7 % (9.0-44.0); LYMPHOCYTE # 1.1 TH/MM3 (1.0-4.8); MEAN CELL VOLUME 90.2 FL (80.0-100.0); MEAN CORPUSCULAR HEMOGLOBIN 30.2 PG (27.0-34.0); MEAN CORPUSCULAR HGB CONC 33.5 % (32.0-36.0); MONO % 4.4 % (0.0-8.0); NEUT % 84.7 % (16.0-70.0); PLATELET COUNT 392 TH/MM3 (150-450); RED BLOOD COUNT 4.11 MIL/MM3 (4.50-5.90); RED CELL DISTRIBUTION WIDTH 13.6 % (11.6-17.2); WHITE BLOOD COUNT 9.9 TH/MM3 (4.0-11.0)
[2017-01-12 06:58] LABS: POTASSIUM 3.8 MEQ/L (3.5-5.1)
[2017-01-12 07:00] VITALS: BP_SYST 127; BP_SYST 128; BP_DIAS 71; BP_DIAS 75; PULSE 58; PULSE 72; RESP 16; RESP 17; TEMP 98.1; TEMP 98.5; O2SAT 97; O2SAT 99
[2017-01-12 07:02] LABS: BICARBONATE 28.1 MEQ/L (21.0-32.0)
--- NOTE | 2017-01-12 07:50 | PD.PROCEDR ---
GI Procedure PROCEDURE PERFORMED [] INDICATION FOR PROCEDURE History of Crohn disease abdominal pain PROCEDURE: The procedure, risks and benefits were discussed with Mr. Rose and informed consent was obtained. Anesthesia sedated him with Diprivan. He was placed in the left lateral decubitus position Colonoscopy: The Pentax videoscope was introduced through the rectum and advanced to [ surgical anastomosis and then to small bowel. Retroflexion was performed in the rectum. Colonic prep was good FINDINGS: Multiple ulcerations in the anastomosis and on the small bowel side of the anastomosis consistent with active Crohn disease biopsy was done Colon was normal ESTIMATED BLOOD LOSS: None SPECIMENS REMOVED: Small bowel, and anastomosis COMPLICATIONS: None IMPRESSION: Small ulcers consistent with Crohn disease advanced ecchymosis and a small bowel side of the anastomosis PLAN: Continue steroid Continue mesalamine Await biopsy results Follow up as an outpatient Diet as tolerated Patient need to be compliant with his medication Temitope Chung MD Jan 12, 2017 07:50
--- NOTE | 2017-01-12 07:53 | HHI.GIFU ---
Subjective Remarks Patient is laying in bed more comfortable today than yesterday, had multiple bowel with the preparation, no distention and less pain Objective Vitals I&O Vital Signs Date Time Temp Pulse Resp B/P (MAP) Pulse Ox O2 Delivery O2 Flow Rate FiO2 01/12/17 07:00 98.1 72 16 128/71 (90) 99 01/12/17 00:00 97.9 61 17 118/72 (87) 96 01/11/17 20:00 97.8 58 19 120/79 (93) 97 01/11/17 15:50 98.2 74 20 124/75 (91) 95 01/11/17 11:50 98.5 83 20 124/76 (92) 96 I/O 01/11/17 01/11/17 01/11/17 01/12/17 01/12/17 01/12/17 07:00 15:00 23:00 07:00 15:00 23:00 Intake Total 1820 ml 100 ml 1404 ml 900 ml Output Total 1200 ml Balance 1820 ml 100 ml 204 ml 900 ml Intake Oral 520 ml 0 ml IV Total 1300 ml 100 ml 1404 ml 900 ml Output Urine Total 1200 ml # Voids 2 1 3 1 # Bowel Movements 0 1 Laboratory Laboratory Tests Test 01/12/17 05:12 White Blood Count 9.9 Red Blood Count 4.11 Hemoglobin 12.4 Hematocrit 37.1 Mean Corpuscular Volume 90.2 Mean Corpuscular Hemoglobin 30.2 Mean Corpuscular Hemoglobin Concent 33.5 Red Cell Distribution Width 13.6 Platelet Count 392 Mean Platelet Volume 7.5 Neutrophils (%) (Auto) 84.7 Lymphocytes (%) (Auto) 10.7 Monocytes (%) (Auto) 4.4 Eosinophils (%) (Auto) 0.1 Basophils (%) (Auto) 0.1 Neutrophils # (Auto) 8.4 Lymphocytes # (Auto) 1.1 Monocytes # (Auto) 0.4 Eosinophils # (Auto) 0.0 Basophils # (Auto) 0.0 CBC Comment DIFF FINAL Differential Comment Blood Urea Nitrogen 10 Creatinine 0.52 Random Glucose 87 Calcium Level 8.7 Sodium Level 140 Potassium Level 3.8 Chloride Level 104 Carbon Dioxide Level 28.1 Anion Gap 8 Estimat Glomerular Filtration Rate 182 Physical Exam HEENT: Pupils round and reactive to light; normocephalic; atraumatic; no jaundice. Throat is clear. NECK: Neck is supple, no JVD, no lymphadenopathy. CHEST: Chest is clear to auscultation and percussion. CARDIAC: Regular rate and rhythm with no murmur gallop or rubs. ABDOMEN: Soft, nondistended, less tenderness mostly in the right lower quadrant but also in the mid abdomen; no hepatosplenomegaly; bowel sounds are present in all four quadrants. EXTREMITIES: No clubbing, cyanosis, or edema. SKIN: Normal; no rash; no jaundice. 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 Assessment and Plan Plan Patient has history of Crohn disease, noncompliant, no medication as an outpatient came with severe abdominal pain and abnormal CT scan Had a colonoscopy today IMPRESSION: Small ulcers consistent with Crohn disease advanced ecchymosis and a small bowel side of the anastomosis PLAN: Continue steroid Continue mesalamine Await biopsy results Follow up as an outpatient Diet as tolerated Patient need to be compliant with his medication Temitope Chung MD Jan 12, 2017 07:53
[2017-01-12] MEDS ORDERED: PROPOFOL 200 MG/20 ML AMP IV ONE (07:56)
[2017-01-12] MEDS ORDERED: HYDROmorphone HCL PF 1 MG/ML VIAL IV PRN (08:45)
[2017-01-12] MEDS: MESALAMINE HD 800 MG DELAYED RELEASE TAB PO SCH ×3 (09:00→22:27)
[2017-01-12] MEDS: methylPREDNISolone SOD SUCC 125 MG/2 ML VIAL IV PUSH SCH ×2 (09:01→22:26)
[2017-01-12] MEDS: DOCUSATE SODIUM 100 MG CAP PO SCH ×3 (09:01→16:19)
[2017-01-12] MEDS: SODIUM CHLORIDE 0.9% FLUSH 10 ML FLUSH IV FLUSH SCH ×2 (09:02→22:26)
--- NOTE | 2017-01-12 10:37 | HHI.PR ---
Subjective Remarks Patient underwent colonoscopy this morning showing multiple small ulcers at the anastomosis site and on the small bowel side of the anastomosis site, no obstruction. Patient had numerous bowel movements with the bowel prep. Patient states his abdominal pain is improved and much less frequent when he gets them abdominal cramps. Patient has been advanced to full liquid diet. Objective Vitals Vital Signs Date Time Temp Pulse Resp B/P (MAP) Pulse Ox O2 Delivery O2 Flow Rate FiO2 01/12/17 08:15 48 14 118/74 (89) 99 01/12/17 08:00 50 14 104/59 (74) 99 01/12/17 07:45 97.7 62 14 96/50 (65) 97 01/12/17 07:00 98.5 58 17 127/75 (92) 97 01/12/17 07:00 98.1 72 16 128/71 (90) 99 01/12/17 00:00 97.9 61 17 118/72 (87) 96 01/11/17 20:00 97.8 58 19 120/79 (93) 97 01/11/17 15:50 98.2 74 20 124/75 (91) 95 01/11/17 11:50 98.5 83 20 124/76 (92) 96 I/O 01/11/17 01/11/17 01/11/17 01/12/17 01/12/17 01/12/17 07:00 15:00 23:00 07:00 15:00 23:00 Intake Total 1820 ml 100 ml 1404 ml 900 ml 450 ml Output Total 1200 ml Balance 1820 ml 100 ml 204 ml 900 ml 450 ml Intake Oral 520 ml 0 ml 0 ml IV Total 1300 ml 100 ml 1404 ml 900 ml Other 450 ml Output Urine Total 1200 ml # Voids 2 1 3 1 # Bowel Movements 0 1 Result Diagram: 01/12/1751101/12/1712 Objective Remarks GENERAL: Malnourished, cachectic appearing pale male patient. SKIN: Warm and dry. HEAD: Normocephalic. EYES: No scleral icterus. No injection or drainage. NECK: Supple, trachea midline. No JVD or lymphadenopathy. CARDIOVASCULAR: Regular rate and rhythm without murmurs, gallops, or rubs. RESPIRATORY: Breath sounds equal bilaterally. No accessory muscle use. GASTROINTESTINAL: Bowel sounds hypoactive. Abdomen soft, mildly tender to palpation throughout without guarding. EXTREMITIES: No cyanosis, or edema. NEUROLOGICAL: Awake, alert, and oriented x 3. Non-focal. Procedures Colonoscopy showing: Multiple ulcerations in the anastomosis and on the small bowel side of the anastomosis consistent with active Crohn disease biopsy was done. Colon was normal A/P Problem List: (1) Crohns disease ICD Code: K50.90 - Crohn's disease, unspecified, without complications Status: Acute (2) Bowel obstruction ICD Code: K56.609 - Unspecified intestinal obstruction, unspecified as to partial versus complete obstruction Status: Acute (3) Acute Crohn's disease with complication ICD Code: K50.919 - Crohn's disease, unspecified, with unspecified complications (4) Malnutrition of moderate degree ICD Code: E44.0 - Moderate protein-calorie malnutrition Assessment and Plan -Acute Crohn's exacerbation with partial small bowel obstruction at the distal ileum at the site of previous ileocecal anastomosis - -Status post colonoscopy today showing no obstruction, multiple small ulcerations that site of previous anastomosis. -Patient transition to oral prednisone and mesalamine. Continue Cipro and Flagyl. -Full liquid diet. -Appreciate general surgery and gastroenterology following this patient. Discussed with general surgery today. - Continue pain control. Antiemetics as needed. IV fluids. -Tobacco use. Cessation counseled. -Moderate malnutrition. Encourage by mouth intake. -DVT prophylaxis with SCDs. Yumiko Coffey MD Jan 12, 2017 10:37
[2017-01-12 11:50] VITALS: BP 120/70; PULSE 57; RESP 20; TEMP 98.7
--- NOTE | 2017-01-12 15:48 | HHI.PR ---
cc: Jersey Sosa MD Subjective Subjective Notes Just back from colonoscopy Objective Vitals/I&O Vital Signs Date Time Temp Pulse Resp B/P (MAP) Pulse Ox O2 Delivery O2 Flow Rate FiO2 01/12/17 11:50 98.7 57 20 120/70 (87) 01/12/17 08:15 99 01/10/17 14:37 Room Air Labs Laboratory Tests Test 01/12/17 05:12 White Blood Count 9.9 Red Blood Count 4.11 Hemoglobin 12.4 Hematocrit 37.1 Mean Corpuscular Volume 90.2 Mean Corpuscular Hemoglobin 30.2 Mean Corpuscular Hemoglobin Concent 33.5 Red Cell Distribution Width 13.6 Platelet Count 392 Mean Platelet Volume 7.5 Neutrophils (%) (Auto) 84.7 Lymphocytes (%) (Auto) 10.7 Monocytes (%) (Auto) 4.4 Eosinophils (%) (Auto) 0.1 Basophils (%) (Auto) 0.1 Neutrophils # (Auto) 8.4 Lymphocytes # (Auto) 1.1 Monocytes # (Auto) 0.4 Eosinophils # (Auto) 0.0 Basophils # (Auto) 0.0 CBC Comment DIFF FINAL Differential Comment Blood Urea Nitrogen 10 Creatinine 0.52 Random Glucose 87 Calcium Level 8.7 Sodium Level 140 Potassium Level 3.8 Chloride Level 104 Carbon Dioxide Level 28.1 Anion Gap 8 Estimat Glomerular Filtration Rate 182 Cardiovascular: Regular Lungs: Clear Abdomen: Other (abdomen flat; non distended; minimally tender ) Extremities: No edema A/P Assessment and Plan 36 year old male with history of Crohn's disease with abdominal pain -s/p colonoscopy--- showed ulcerations at the anastomosis -GI following--- recommend diet as tolerated and continue Crohn's medication -No surgical plans at this time Angelica Au Jan 12, 2017 15:48
[2017-01-12 15:50] VITALS: BP 123/72; PULSE 82; RESP 20; TEMP 98.5; O2SAT 96
[2017-01-12 20:00] VITALS: BP_SYST 124; BP_SYST 128; BP_DIAS 77; PULSE 58; RESP 20; TEMP 98.6; O2SAT 98
[2017-01-12] MEDS ORDERED: HYDROmorphone HCL PF 0.5 MG/0.5 ML SYRINGE IV PUSH PRN ×2 (20:00)
[2017-01-13 00:45] VITALS: BP 137/80; PULSE 59; RESP 20; TEMP 97.8; O2SAT 98
[2017-01-13] MEDS: CIPROFLOXACIN 200 MG PREMIX 100 ML IV SCH (02:50)
[2017-01-13] MEDS: SODIUM CHLOR 0.9% 1000 ML INJ 1,000 ML IV SCH (02:51)
[2017-01-13] MEDS: metroNIDAZOLE 500 MG INJ 100 ML IV SCH ×2 (04:52→08:10)
[2017-01-13] MEDS: MESALAMINE HD 800 MG DELAYED RELEASE TAB PO SCH (06:30)
[2017-01-13] MEDS: DOCUSATE SODIUM 100 MG CAP PO SCH (08:09)
[2017-01-13] MEDS: methylPREDNISolone SOD SUCC 125 MG/2 ML VIAL IV PUSH SCH (08:10)
[2017-01-13] MEDS: SODIUM CHLORIDE 0.9% FLUSH 10 ML FLUSH IV FLUSH SCH (08:10)
--- NOTE | 2017-01-13 08:39 | HHI.GIFU ---
Subjective Remarks Patient laying in bed comfortable, no abdominal pain, no diarrhea, tolerated some food yesterday Objective Vitals I&O Vital Signs Date Time Temp Pulse Resp B/P (MAP) Pulse Ox O2 Delivery O2 Flow Rate FiO2 01/13/17 00:45 97.8 59 20 137/80 (99) 98 01/12/17 20:00 98.6 58 20 128/77 (94) 98 124/77 (93) 01/12/17 15:50 98.5 82 20 123/72 (89) 96 01/12/17 11:50 98.7 57 20 120/70 (87) I/O 01/12/17 01/12/17 01/12/17 01/13/17 01/13/17 01/13/17 07:00 15:00 23:00 07:00 15:00 23:00 Intake Total 900 ml 450 ml 640 ml 1200 ml Output Total 2150 ml Balance 900 ml 450 ml -1510 ml 1200 ml Intake Oral 0 ml 540 ml IV Total 900 ml 100 ml 1200 ml Other 450 ml Output Urine Total 2150 ml # Voids 3 1 2 # Bowel Movements 0 Physical Exam HEENT: Pupils round and reactive to light; normocephalic; atraumatic; no jaundice. Throat is clear. NECK: Neck is supple, no JVD, no lymphadenopathy. CHEST: Chest is clear to auscultation and percussion. CARDIAC: Regular rate and rhythm with no murmur gallop or rubs. ABDOMEN: Soft, nondistended, minimal tenderness mostly in the right lower quadrant but also in the mid abdomen; no hepatosplenomegaly; bowel sounds are present in all four quadrants. EXTREMITIES: No clubbing, cyanosis, or edema. SKIN: Normal; no rash; no jaundice. 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 Assessment and Plan Plan Patient has history of Crohn disease, noncompliant, no medication as an outpatient came with severe abdominal pain and abnormal CT scan Had a colonoscopy yesterday IMPRESSION: Small ulcers consistent with Crohn disease advanced ecchymosis and a small bowel side of the anastomosis 01/13/2017 patient feeling better today, no abdominal pain, no diarrhea, wants to eat more PLAN: Okay to switch to oral steroid steroid 30 mg daily for one week then 20 mg for one week then 10 mg for one week Okay to stop antibiotic Continue mesalamine Await biopsy results Follow up as an outpatient Diet as tolerated Patient need to be compliant with his medication If tolerating diet okay to discharge home from GI perspective Temitope Chung MD Jan 13, 2017 08:39
[2017-01-13 08:44] VITALS: BP 114/72; PULSE 56; RESP 19; TEMP 98.3; O2SAT 98
[2017-01-13] MEDS ORDERED: PERC5TAB12 PO (09:31)
[2017-01-13] MEDS ORDERED: PRED10 PO (09:31)
[2017-01-13] MEDS ORDERED: MESA1TAB2 PO (09:31)
--- NOTE | 2017-01-13 09:32 | HHI.DS ---
Discharge Summary Admission Date Jan 10, 2017 at 14:31 Discharge Date: Jan 13, 2017 Admitting Diagnosis Crohn's disease with high-grade partial obstruction (1) Crohns disease ICD Code: K50.90 - Crohn's disease, unspecified, without complications Status: Acute (2) Bowel obstruction ICD Code: K56.609 - Unspecified intestinal obstruction, unspecified as to partial versus complete obstruction Status: Acute (3) Acute Crohn's disease with complication ICD Code: K50.919 - Crohn's disease, unspecified, with unspecified complications (4) Malnutrition of moderate degree ICD Code: E44.0 - Moderate protein-calorie malnutrition Procedures Colonoscopy showing: Multiple ulcerations in the anastomosis and on the small bowel side of the anastomosis consistent with active Crohn disease biopsy was done. Colon was normal Brief History - From Admission This is a very pleasant 36-year-old male with past medical history of Crohn's disease diagnosed in 2002 after he suffered appendicitis with rupture. At that time he had resection of ascending colon with ostomy bag and reversal 6 months later. Patient unfortunately does not have insurance and so has never been able to get on immune modulating therapy for the Crohn's disease. Normally he has about 3-4 exacerbations per year. He has chronic loose stools. Patient has had severe cramping right lower quadrant and lower abdominal pain intermittent over the past 6 days. He also has not had a bowel movement in 6 days. Associated with nausea but no vomiting. No alleviating factors. Patient presented to the emergency department last night. Abdominal CT scan showed previous ileocecal anastomosis with transmural inflammatory change at the anastomosis with at least a high-grade partial obstruction at the anastomosis with dilated loops of ileum proximal to this. Overnight the patient has continued to have cramping abdominal pain. He states that the Dilaudid wears off after 3 hours. He requested Dilaudid be scheduled as he is having a delay in the nurses bring it to him. The patient has not had any further vomiting. GI and general surgery had seen the patient. Bowel prep was ordered for him to undergo colonoscopy today however he was not able to drink much of the prep. Bowel prep again ordered 4 times to undergo colonoscopy tomorrow. If he fails this he may need to have surgery. CBC/BMP: 01/12/17 0512 01/12/17 0512 Significant Findings Laboratory Tests Test 01/10/17 12:14 01/10/17 13:10 01/11/17 05:30 01/12/17 05:12 White Blood Count 12.4 TH/MM3 (4.0-11.0) 12.6 TH/MM3 (4.0-11.0) Red Blood Count 4.44 MIL/MM3 (4.50-5.90) 4.29 MIL/MM3 (4.50-5.90) 4.11 MIL/MM3 (4.50-5.90) Neutrophils (%) (Auto) 75.8 % (16.0-70.0) 84.4 % (16.0-70.0) 84.7 % (16.0-70.0) Neutrophils # (Auto) 9.4 TH/MM3 (1.8-7.7) 10.6 TH/MM3 (1.8-7.7) 8.4 TH/MM3 (1.8-7.7) Aspartate Amino Transf (AST/SGOT) 7 U/L (15-37) Potassium Level 3.0 MEQ/L (3.5-5.1) Hematocrit 38.1 % (39.0-51.0) 37.1 % (39.0-51.0) Creatinine 0.57 MG/DL (0.60-1.30) 0.52 MG/DL (0.60-1.30) Hemoglobin 12.4 GM/DL (13.0-17.0) Imaging Last Impressions Abdomen/Pelvis CT 01/10/17 1200 Signed Impressions: Service Date/Time: Tuesday, January 10, 2017 13:45 - CONCLUSION: 1. Abnormal appearance of the distal ileum. There has been previous ileocecal anastomosis. There is transmural inflammatory change and at least high grade partial obstruction at the anastomosis with distended, dilated loops of ileum proximal to this. The loops of ileum measure approximately 4 cm in diameter. The overall size of this has worsened when compared to prior exam. There is a small amount of free fluid within the pelvis. Miguel Kennedy MD PE at Discharge GENERAL: Malnourished, cachectic appearing pale male patient. SKIN: Warm and dry. HEAD: Normocephalic. EYES: No scleral icterus. No injection or drainage. NECK: Supple, trachea midline. No JVD or lymphadenopathy. CARDIOVASCULAR: Regular rate and rhythm without murmurs, gallops, or rubs. RESPIRATORY: Breath sounds equal bilaterally. No accessory muscle use. GASTROINTESTINAL: Bowel sounds hypoactive. Abdomen soft, mildly tender to palpation throughout without guarding. EXTREMITIES: No cyanosis, or edema. NEUROLOGICAL: Awake, alert, and oriented x 3. Non-focal. Pt update on day of discharge Patient states that he feels very well. Tolerating full liquid diet. Loose stool last night. Abdominal pain improved and he has not required any pain medication today. Patient very eager to go home. Hospital Course Patient was admitted to the hospital and treated with IV Solu-Medrol and antibiotics. General surgery and gastroenterology were consulted. Patient underwent colonoscopy showing ulcerations in the anastomosis consistent with active Crohn's disease. No obstruction. Patient tolerating full liquid diet. Patient was placed on mesalamine. And prednisone. Patient will be on a three- week taper of prednisone. He will continue the mesalamine. He is to follow-up with Dr. Chung within 2 weeks. Patient understands and is agreeable. He'll be discharged home today. Pt Condition on Discharge: Stable Discharge Disposition: Discharge Home Discharge Time: <= 30 minutes Discharge Instructions DIET: Follow Instructions for: As Tolerated, No Restrictions Activities you can perform: Regular-No Restrictions Follow up Referrals: Gastroenterology - 2 Weeks with Temitope Chung MD New Medications: Prednisone (Prednisone) 10 Mg Tab 10 MG PO DIRECTED for crohn's disease, #42 TAB 0 Refills Take 30 mg daily for 7 days, then 20 mg daily for 7 days, then 10 mg daily for 7 days. Mesalamalyssa SWAN (Mesalamine ) 800 Mg Tab 1600 MG PO Q8HR for crohn's disease, #120 TAB Continued Medications: Ondansetron (Zofran) 4 Mg Tab 4 MG PO Q6HR PRN for NAUSEA OR VOMITING, #12 TAB 0 Refills Oxycodone-Acetaminophen (Percocet) 5-325 mg Tab 1 TAB PO Q6H PRN for PAIN, #20 TAB 0 Refills (This prescription has been renewed ) Discontinued Medications: Prednisone (Prednisone) 20 Mg Tab 60 MG PO DAILY for 5 Days, #15 TAB 0 Refills Take 40 mg (2 tablets) daily for 5 days Yumiko Coffey MD Jan 13, 2017 09:32
== END 2017-01-13 11:29 | disposition home or self-care (01) | DRG 389 ==
LOC: PHEFT 11:40 → PHEDA 14:31 → UNDOADMIN 14:31 → PH3B 15:34
PROVIDERS: ADMIT Family Medicine; ATTEND Family Medicine
PROC: 0DB88ZX Excision of Small Intestine, Via Natural or Artificial Opening Endoscopic, Diagnostic (ICD-10-PCS; principal; 2017-01-12 07:15)
DX: K56.600 Partial intestinal obstruction, unspecified as to cause (principal); K50.90 Crohn's disease, unspecified, without complications; E44.0 Moderate protein-calorie malnutrition; K63.3 Ulcer of intestine; F10.21 Alcohol dependence, in remission; G89.29 Other chronic pain; F17.210 Nicotine dependence, cigarettes, uncomplicated; F12.90 Cannabis use, unspecified, uncomplicated; Z91.19 Patient's noncompliance with other medical treatment and regimen
CPT/HCPCS: 74177; 80048; 80053; 81001; 83690; 85025; 85610; 85730; 88305; 90471; 90686; 90732; 96361; 96374; 96375; J1170; G0008; G0009; J0744; J2270; J2405; J2930; J7030; Q2038; Q9963; Q9967

== ENCOUNTER 2017-06-11 19:21 | Inpatient (IN) | payer OTHER ==
[~2017-06-11] VITALS: Ht 175.3 cm; Wt 58.2 kg
[~2017-06-11 19:21] MED LIST changes: +MESA1TAB2 PO; +PRED10 PO; -PRED20 PO
[2017-06-11 19:30] VITALS: BP 127/89; PULSE 92; RESP 18; TEMP 98.6; O2SAT 18; O2SAT 99
[2017-06-11] MEDS ORDERED: [UNRECOGNIZED DRUG - OTHER] (21:32)
[2017-06-11] MEDS ORDERED: MAGNSOL2 PO (21:32)
[2017-06-11] MEDS ORDERED: SODIUM CHLOR 0.9% 1000 ML INJ 1,000 ML IV SCH (21:46)
[2017-06-11] MEDS ORDERED: LIDOCAINE VISCOUS 2% SOLN 15 ML UDC PO ONE (22:00)
[2017-06-11] MEDS ORDERED: ALUMINUM/MAGNESIUM/SIMETH 30 ML CUP PO ONE (22:00)
[2017-06-11] MEDS ORDERED: KETOROLAC TROMETHAMINE 30 MG/ML (IVP) VIAL IVP ONE (22:00)
[2017-06-11] MEDS ORDERED: MORPHINE SULFATE 8 MG/ML INJ IV PUSH ONE (22:00)
[2017-06-11] MEDS ORDERED: ONDANSETRON HCL 4 MG/2 ML VIAL IVP ONE (22:00)
[2017-06-11] MEDS ORDERED: SODIUM CHLORIDE 0.9% FLUSH 10 ML FLUSH IV FLUSH PRN (22:00)
[2017-06-11] MEDS ORDERED: DIATRIZOATE MEGLUM/DIATRIZOATE SOD 9 ML CUP ONE (22:03)
[2017-06-11 22:29] LABS: BLOOD, URINE NEG (NEG); GLUCOSE,URINE NEG (NEG); KETONE, URINE 80 OR GREATER mg/dL (NEG); NITRITE,URINE NEG (NEG); URINE COLOR YELLOW (YELLW/STRAW); URINE LEUKOCYTE ESTERASE NEG (NEG)
[2017-06-11 22:30] LABS: AUTOMATED NEUTROPHIL # 14.7 TH/MM3 (1.8-7.7); BASOPHIL % 0.2 % (0.0-2.0); EOSINOPHIL % 0.2 % (0.0-4.0); HEMATOCRIT 44.2 % (39.0-51.0); HEMOGLOBIN 15.2 GM/DL (13.0-17.0); LYMPH % 5.1 % (9.0-44.0); LYMPHOCYTE # 0.8 TH/MM3 (1.0-4.8); MEAN CELL VOLUME 90.7 FL (80.0-100.0); MEAN CORPUSCULAR HEMOGLOBIN 31.3 PG (27.0-34.0); MEAN CORPUSCULAR HGB CONC 34.5 % (32.0-36.0); MEAN PLATELET VOLUME 7.6 FL (7.0-11.0); MONOCYTE # 0.8 TH/MM3 (0-0.9); NEUT % 89.5 % (16.0-70.0); PLATELET COUNT 398 TH/MM3 (150-450); RED BLOOD COUNT 4.87 MIL/MM3 (4.50-5.90); RED CELL DISTRIBUTION WIDTH 14.1 % (11.6-17.2); WHITE BLOOD COUNT 16.3 TH/MM3 (4.0-11.0)
--- NOTE | 2017-06-11 22:36 | PD ---
HPI Chief Complaint: Abdominal Pain Time Seen by Provider: 21:31 Travel History International Travel<30 days: No Contact w/Intl Traveler<30days: No Traveled to known affect area: No History of Present Illness HPI 37-year-old male complains of Crohn's disease. He has pain in the right lower quadrant. He reports typically having 5-6 episodes of diarrhea every single morning and no bowel movement for the past 4 days. He reports about every 4 minutes or so he develops a cramping quality in the right lower quadrant that is 6-7/10 in pain severity. Associated symptoms include vomiting diaphoresis. He denies fever. No flatus. PFSH Past Medical History Anxiety: No Depression: No Cancer: No Diminished Hearing: No Endocrine: No Gastrointestinal Disorders: Yes (crohns) Immune Disorder: No Implanted Vascular Access Dvce: No Psychiatric: No Immunizations Current: No ?: Not Past Surgical History Abdominal Surgery: Yes (appendextomy , Bowel recection and reversal ) Appendectomy: Yes Cardiac Surgery: No Ear Surgery: No Endocrine Surgery: No Eye Surgery: No Genitourinary Surgery: No Gynecologic Surgery: No Neurologic Surgery: No Oral Surgery: No Thoracic Surgery: No Other Surgery: Yes Social History Alcohol Use: No Tobacco Use: Yes (1 02/28 pk) Substance Use: No Allergies-Medications (Allergen,Severity, Reaction): Coded Allergies: No Known Allergies (Unverified , 06/11/17) Reported Meds & Prescriptions Reported Meds & Active Scripts Active Reported Ex-Lax (Sennosides) 15 Mg Tab.chew Magnesium Citrate Liq (Magnesium Citrate) 300 Ml Liq 300 Ml PO ONCE Review of Systems Except as stated in HPI: all other systems reviewed are Neg General / Constitutional: No: Fever Physical Exam Narrative GENERAL: 37 yo M, WNWD, mild distress 2/2 pain Vital Signs Date Time Temp Pulse Resp B/P (MAP) Pulse Ox O2 Delivery O2 Flow Rate FiO2 06/11/17 19:30 98.6 92 18 127/89 (102) 99 SKIN: Warm and dry. HEAD: Atraumatic. Normocephalic. EYES: Pupils equal and round. No scleral icterus. No injection or drainage. ENT: No nasal bleeding or discharge. Mucous membranes pink and moist. NECK: Trachea midline. No JVD. CARDIOVASCULAR: Regular rate and rhythm. RESPIRATORY: No accessory muscle use. Clear to auscultation. Breath sounds equal bilaterally. GASTROINTESTINAL: Soft. There is tenderness palpation right lower quadrant MUSCULOSKELETAL: Extremities without clubbing, cyanosis, or edema. No obvious deformities. NEUROLOGICAL: Awake and alert. No obvious cranial nerve deficits. Motor grossly within normal limits. Five out of 5 muscle strength in the arms and legs. Normal speech. PSYCHIATRIC: Appropriate mood and affect; insight and judgment normal. Data Data Last Documented VS Vital Signs Date Time Temp Pulse Resp B/P (MAP) Pulse Ox O2 Delivery O2 Flow Rate FiO2 06/12/17 00:26 78 16 146/82 (103) 100 Room Air 06/11/17 19:30 98.6 Orders Orders Complete Blood Count With Diff (06/11/17 21:46) Comprehensive Metabolic Panel (06/11/17 21:46) Lipase (06/11/17 21:46) Lactic Acid (06/11/17 21:46) Urinalysis - C+S If Indicated (06/11/17 21:46) Ct Abd/Pel W Iv Contrast(Rout) (06/11/17 21:46) Iv Access Insert/Monitor (06/11/17 21:46) Ecg Monitoring (06/11/17 21:46) Oximetry (06/11/17 21:46) Ondansetron Inj (Zofran Inj) (06/11/17 22:00) Sodium Chlor 0.9% 1000 Ml Inj (Ns 1000 M (06/11/17 21:46) Sodium Chloride 0.9% Flush (Ns Flush) (06/11/17 22:00) Ketorolac Inj (Toradol Inj) (06/11/17 22:00) Morphine Inj (Morphine Inj) (06/11/17 22:00) Al-Mag Hy-Si 40-40-4 Mg/Ml Liq (Mag-Al P (06/11/17 22:00) Lidocaine 2% Viscous (Xylocaine 2% Visco (06/11/17 22:00) Oral Contrast - Adult (06/11/17 21:52) Diatrizoate Liq ( Gastroview Liq) (06/11/17 22:03) Iohexol 350 Inj (Omnipaque 350 Inj) (06/11/17 23:35) Piperacil-Tazo 4.5 Gm Premix (Zosyn 4.5 (06/12/17 00:00) Piperacil-Tazo 4.5 Gm Premix (Zosyn 4.5 (06/12/17 06:00) Consult General Surgery (06/12/17 ) Admit To Inpatient (06/12/17 ) Vital Signs (Adult) Q4H (06/12/17 01:00) Activity Oob Ad [place] (06/12/17 01:00) Intake + Output JUANIS.QSHIFT (06/12/17 01:00) Diet Npo (06/12/17 Breakfast) Sodium Chlor 0.9% 1000 Ml Inj (Ns 1000 M (06/12/17 01:00) Sodium Chloride 0.9% Flush (Ns Flush) (06/12/17 01:00) Sodium Chloride 0.9% Flush (Ns Flush) (06/12/17 09:00) Ondansetron Inj (Zofran Inj) (06/12/17 01:00) Comprehensive Metabolic Panel (06/13/17 06:00) Complete Blood Count With Diff (06/13/17 06:00) Scd Bilateral/Knee High JUANIS.BID (06/12/17 01:00) Radames Bilateral/Knee High JUANIS.QSHIFT (06/12/17 01:01) Morphine Inj (Morphine Inj) (06/12/17 01:00) Acetaminophen 1000 Mg/100 Ml (Ofirmev 10 (06/12/17 01:00) Docusate Sodium-Senna (Elham-Colace) (06/12/17 09:00) Magnesium Hydroxide Liq (Milk Of Magnesi (06/12/17 01:00) Sennosides (Senokot) (06/12/17 01:00) Bisacodyl Supp (Dulcolax Supp) (06/12/17 01:00) Lactulose Liq (Lactulose Liq) (06/12/17 01:00) Inpatient Certification (06/12/17 ) Methylprednisolone So Succ Inj (Solumedr (06/12/17 09:00) Admit Order (Ed Use Only) (06/12/17 ) Director Clinical Research / Telemetry JUANIS.Q8H (06/12/17 01:02) Vital Signs (Adult) Q4H (06/12/17 01:02) Activity Bed Rest (06/12/17 01:02) Notify Dr: Other (06/12/17 01:02) Morphine Inj (Morphine Inj) (06/12/17 01:00) Labs Laboratory Tests Test 06/11/17 22:10 White Blood Count 16.3 TH/MM3 Red Blood Count 4.87 MIL/MM3 Hemoglobin 15.2 GM/DL Hematocrit 44.2 % Mean Corpuscular Volume 90.7 FL Mean Corpuscular Hemoglobin 31.3 PG Mean Corpuscular Hemoglobin Concent 34.5 % Red Cell Distribution Width 14.1 % Platelet Count 398 TH/MM3 Mean Platelet Volume 7.6 FL Neutrophils (%) (Auto) 89.5 % Lymphocytes (%) (Auto) 5.1 % Monocytes (%) (Auto) 5.0 % Eosinophils (%) (Auto) 0.2 % Basophils (%) (Auto) 0.2 % Neutrophils # (Auto) 14.7 TH/MM3 Lymphocytes # (Auto) 0.8 TH/MM3 Monocytes # (Auto) 0.8 TH/MM3 Eosinophils # (Auto) 0.0 TH/MM3 Basophils # (Auto) 0.0 TH/MM3 CBC Comment DIFF FINAL Differential Comment Urine Collection Type CLEAN CATCH Urine Color YELLOW Urine Turbidity CLEAR Urine pH 6.0 Urine Specific [place] 1.025 Urine Protein 30 mg/dL Urine Glucose (UA) NEG mg/dL Urine Ketones 80 OR GREATER mg/dL Urine Occult Blood NEG Urine Nitrite NEG Urine Bilirubin NEG Urine Urobilinogen 0.2 MG/DL Urine Leukocyte Esterase NEG Urine WBC 0-2 /hpf Urine Squamous Epithelial Cells 0-5 /hpf Urine Mucus MANY /lpf Microscopic Urinalysis Comment CULT NOT INDICATED Blood Urea Nitrogen 10 MG/DL Creatinine 0.76 MG/DL Random Glucose 73 MG/DL Total Protein 8.4 GM/DL Albumin 4.3 GM/DL Calcium Level 10.0 MG/DL Alkaline Phosphatase 64 U/L Aspartate Amino Transf (AST/SGOT) 13 U/L Alanine Aminotransferase (ALT/SGPT) 10 U/L Total Bilirubin 1.0 MG/DL Sodium Level 137 MEQ/L Potassium Level 3.2 MEQ/L Chloride Level 99 MEQ/L Carbon Dioxide Level 24.6 MEQ/L Anion Gap 13 MEQ/L Estimat Glomerular Filtration Rate 117 ML/MIN Lactic Acid Level 1.1 mmol/L Lipase 126 U/L [facility] Medical Decision Making Medical Screen Exam Complete: Yes Emergency Medical Condition: Yes Medical Record Reviewed: Yes Differential Diagnosis Constipation, Gastritis, Acute Cholecystitis, Biliary Colic, Pancreatitis, VINES , Hepatitis, Bowel Obstruction, Cystitis, Mesenteric Ischemia, AAA, Appendicitis , Renal Stone/Hydronephrosis, GERD, perforated viscous Narrative Course CBC & BMP Diagram 06/11/17 22:10 Total Protein 8.4 H, Albumin 4.3, Calcium Level 10.0, Alkaline Phosphatase 64, Aspartate Amino Transf (AST/SGOT) 13 L, Alanine Aminotransferase (ALT/SGPT) 10 L , Total Bilirubin 1.0 Lactic acid is 1.1 The lipase is 126 Urinalysis shows ketonuria without UTI The CT pelvis reveals Crohn's disease changes with obstruction proximal to the ileocecal anastomosis, no abscess The abdomen is soft. There is no peritoneal sign. The patient has not vomited since arrival. Zosyn started. IV fluids started. Pain controlled 5 mg morphine. Pt suitable for med/surg floor with telemetry. It should be noted the patient's medical insurance, [email or web address], has been temporarily suspended which was confirmed via the hub. d/w Dr Swan Diagnosis Primary Impression: Acute Crohn's disease with complication Admitting Information Admitting Physician Requests: Admit Miguel Perkins MD Jun 11, 2017 22:36
[2017-06-11 22:45] LABS: CHLORIDE 99 MEQ/L (98-107); SODIUM (NA) 137 MEQ/L (136-145)
[2017-06-11 22:49] LABS: ALBUMIN 4.3 GM/DL (3.4-5.0); BICARBONATE 24.6 MEQ/L (21.0-32.0); BLOOD UREA NITROGEN 10 MG/DL (7-18); GLUCOSE,RANDOM 73 MG/DL (74-106)
[2017-06-11 22:52] LABS: ALT (GPT) 10 U/L (12-78); AST (GOT) 13 U/L (15-37); CREATININE 0.76 MG/DL (0.60-1.30); GLOMERULAR FILTRATION RATE 117 ML/MIN (>89)
[2017-06-11 22:53] LABS: TOTAL PROTEIN 8.4 GM/DL (6.4-8.2)
[2017-06-11 22:55] LABS: ALKALINE PHOSPHATASE 64 U/L (45-117)
[2017-06-11 22:57] LABS: BILIRUBIN, URINE NEG (NEG)
[2017-06-11 22:59] LABS: MUCUS URINE MANY /lpf (OCC); SQUAMOUS EPITHELIAL CELL URINE 0-5 /hpf (0-5); WBC, URINE 0-2 /hpf (0-5)
[2017-06-11] MEDS ORDERED: IOHEXOL 350 MG/ML 10 ML VIAL (for RAD DIAG) IVCONTRAST ONE (23:35)
--- NOTE | 2017-06-11 23:42 | RADRPT ---
EXAM DATE/TIME: 06/11/2017 23:22 [place] COMPARISON: No previous studies available for comparison. INDICATIONS : Abdominal pain. Constipation. IV CONTRAST: 100 cc Omnipaque 350 (iohexol) IV ORAL CONTRAST: Prescribed oral contrast ingested. RADIATION DOSE: 5.33 CTDIvol (mGy) MEDICAL HISTORY : Crohn's disease. SURGICAL HISTORY : Colon resection. Appendectomy. ENCOUNTER: Initial ACUITY: 2 days PAIN SCALE: 10/10 LOCATION: Bilateral abdomen and pelvis. TECHNIQUE: Volumetric scanning of the abdomen and pelvis was performed. Using automated exposure control and ad justment of the mA and/or kV according to patient size, radiation dose was kept as low as reasonably achievable to obtain optimal diagnostic quality images. DICOM format image data is available electro nically for review and comparison. FINDINGS: Marked wall thickening and mucosal enhancement seen of the distal ileum. There is moderate distention of fluid-filled small bowel up stream. There is an ileocolic anastomosis in the right lower quadrant that also appears to be inflamed. No acute abnormality seen of the colon. There is no free fluid. No abscess. Solid organs are normal. No pathologic adenopathy demonstrated. Lung bases are clear. CONCLUSION: Severe acute/active Crohn's at and just upstream of the ileocolic anastomosis and causing bowel obstr uction. No abscess or perforation. Felix Coe MD on June 11, 2017 at 23:38 Board Certified Radiologist. This report was verified electronically.
[2017-06-12] VITALS (8 sets, daily range): BP systolic 127–180; BP diastolic 72–111; PULSE 63–82; RESP 12–18; TEMP 96.2–98.1; O2SAT 97–100
[2017-06-12] MEDS ORDERED: PIPERACIL-TAZO 4.5 GM PREMIX 100 ML IV ONE
[2017-06-12] MEDS ORDERED: ACETAMINOPHEN 1000 MG/100 ML 100 ML IV PRN (01:00)
[2017-06-12] MEDS ORDERED: SENNOSIDES 8.6 MG TAB PO PRN (01:00)
[2017-06-12] MEDS ORDERED: MAGNESIUM HYDROXIDE SUSP 30 ML CUP PO PRN (01:00)
[2017-06-12] MEDS ORDERED: SODIUM CHLORIDE 0.9% FLUSH 10 ML FLUSH IV FLUSH PRN (01:00)
[2017-06-12] MEDS: ONDANSETRON HCL 4 MG/2 ML VIAL IVP PRN ×3 (02:21→20:17)
[2017-06-12] MEDS: SODIUM CHLOR 0.9% 1000 ML INJ 1,000 ML IV SCH ×2 (02:21→11:39)
[2017-06-12] MEDS: MORPHINE SULFATE 4 MG/ML INJ IV PUSH PRN ×6 (02:22→20:11)
[2017-06-12] MEDS: LACTULOSE SYRUP 20 GM/30 ML CUP PO PRN (02:23)
[2017-06-12] MEDS: PIPERACIL-TAZO 4.5 GM PREMIX 100 ML IV SCH ×3 (06:28→18:16)
[2017-06-12] MEDS: SODIUM CHLORIDE 0.9% FLUSH 10 ML FLUSH IV FLUSH SCH ×2 (09:00→20:12)
[2017-06-12] MEDS ORDERED: POTASSIUM CHLOR 10 MEQ PREMIX 100 ML IV SCH (10:00)
[2017-06-12] MEDS: DOCUSATE SODIUM 50 MG/SENNA 8.6 MG TAB PO SCH ×2 (10:28→20:14)
[2017-06-12] MEDS: methylPREDNISolone SOD SUCC 40 MG/1 ML VIAL IV PUSH SCH ×2 (10:29→20:11)
--- NOTE | 2017-06-12 12:28 | HHI.HP ---
HPI Service CP Hospitalists Primary Care Physician No Primary Care Physician Admission Diagnosis Crohn's Dz Exacerbation; Bowel Obstruction Chief Complaint: N,V, constipation, abd pain Travel History International Travel<30 Days: No Contact w/Intl Traveler <30 Da: No Traveled to Known Affected Are: No History of Present Illness 37-year-old male complains of Crohn's disease. He has pain in the right lower quadrant. He reports typically having 5-6 episodes of diarrhea every single morning, but no bowel movement for the past 4 days. He reports about every 4 minutes or so he develops a cramping quality in the right lower quadrant that is 6-7/10 in pain severity. Associated symptoms include vomiting diaphoresis. He denies fever. No flatus. Typically does not have any vomiting but has vomited several times in the last 3 days. He has had small bowel obstruction in the past most recently December 2016 but did not require surgery at that point. He does have distant history of partial bowel resection with ileostomy and subsequent reversal in 2003. He has been evaluated by on-call surgical team and will be transferred up to the [facility] hospital for likely surgical intervention. It is noted that initially he was admitted to separate service but was subsequently found to have active [facility] so I was called to evaluate the patient. Review of Systems Constitutional: COMPLAINS OF: Fatigue, Weight loss, Change in appetite Eyes: DENIES: Blurred vision, Diplopia, Eye inflammation, Eye pain, Vision loss , Photosensitivity, Double Vision Ears, nose, mouth, throat: DENIES: Tinnitus, Hearing loss, Vertigo, Nasal discharge, Oral lesions, Throat pain, Hoarseness, Ear Pain, Running Nose, Epistaxis, Sinus Pain, Toothache, Odynophagia Respiratory: DENIES: Apneas, Cough, Snoring, Wheezing, Hemoptysis, Sputum production, Shortness of breath Cardiovascular: DENIES: Chest pain, Palpitations, Syncope, Dyspnea on Exertion , PND, Lower Extremity Edema, Orthopnea, Claudication Gastrointestinal: COMPLAINS OF: Abdominal pain, Constipation, GERD, Nausea, Vomiting Musculoskeletal: DENIES: Joint pain, Muscle aches, Stiffness, Joint Swelling, Back pain, Neck pain Integumentary: DENIES: Abnormal pigmentation, Nail changes, Pruritus, Rash Hematologic/lymphatic: DENIES: Bruising, Lymphadenopathy Immunologic/allergic: DENIES: Eczema, Urticaria Neurologic: DENIES: Abnormal gait, Headache, Localized weakness, Paresthesias, Seizures, Speech Problems, Tremor, Poor Balance Psychiatric: COMPLAINS OF: Anxiety, DENIES: Confusion, Mood changes, Depression , Hallucinations, Agitation, Suicidal Ideation, Homicidal Ideation, Delusions, History of Bipolar, History of Schizophrenia Past Family Social History Past Medical History Crohn's disease Anxiety Past Surgical History Partial bowel resection with ileostomy and subsequent re-anastomosis in 2003 Multiple colonoscopies Reported Medications Denies regular use of prescription medication Allergies: Coded Allergies: No Known Allergies (Unverified , 06/11/17) Family History Father lives in [place] and is relatively healthy Mother at age 40 of multiple sclerosis complications Maternal aunt with lupus No family history of inflammatory bowel syndrome Social History Smokes 1 pack cigarettes per day and has done for for several years Occasionally smokes marijuana for his abdominal pain and nausea Denies alcohol or other illicit drug use Lives alone and 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 SKIN: No rashes, ecchymoses or lesions. HEAD: Atraumatic. Normocephalic. No temporal or scalp tenderness. EYES: Pupils equal round and reactive. Extraocular motions intact. No scleral icterus. No injection or drainage. ENT: Nose without bleeding, purulent drainage or septal hematoma. NG tube in place. Airway patent. NECK: Trachea midline. No JVD or lymphadenopathy. Supple, nontender, no meningeal signs. CARDIOVASCULAR: Regular rate and rhythm without murmurs, gallops, or rubs. RESPIRATORY: Clear to auscultation. Breath sounds equal bilaterally. No wheezes , rales, or rhonchi. GASTROINTESTINAL: Abdomen soft, mildly distended, global tenderness to palpation slightly worse than left upper and right mid abdomen. Positive voluntary guarding. No rebound. MUSCULOSKELETAL: Extremities without clubbing, cyanosis, or edema. No joint tenderness, effusion, or edema noted. No calf tenderness. Negative Homans sign bilaterally. NEUROLOGICAL: Awake and alert. Cranial nerves II through XII intact. Motor and sensory grossly within normal limits. Five out of 5 muscle strength in all muscle groups. Normal speech. Laboratory Laboratory Tests Test 06/11/17 22:10 White Blood Count 16.3 Red Blood Count 4.87 Hemoglobin 15.2 Hematocrit 44.2 Mean Corpuscular Volume 90.7 Mean Corpuscular Hemoglobin 31.3 Mean Corpuscular Hemoglobin Concent 34.5 Red Cell Distribution Width 14.1 Platelet Count 398 Mean Platelet Volume 7.6 Neutrophils (%) (Auto) 89.5 Lymphocytes (%) (Auto) 5.1 Monocytes (%) (Auto) 5.0 Eosinophils (%) (Auto) 0.2 Basophils (%) (Auto) 0.2 Neutrophils # (Auto) 14.7 Lymphocytes # (Auto) 0.8 Monocytes # (Auto) 0.8 Eosinophils # (Auto) 0.0 Basophils # (Auto) 0.0 CBC Comment DIFF FINAL Differential Comment Urine Collection Type CLEAN CATCH Urine Color YELLOW Urine Turbidity CLEAR Urine pH 6.0 Urine Specific [place] 1.025 Urine Protein 30 Urine Glucose (UA) NEG Urine Ketones 80 OR GREATER Urine Occult Blood NEG Urine Nitrite NEG Urine Bilirubin NEG Urine Urobilinogen 0.2 Urine Leukocyte Esterase NEG Urine WBC 0-2 Urine Squamous Epithelial Cells 0-5 Urine Mucus MANY Microscopic Urinalysis Comment CULT NOT INDICATED Blood Urea Nitrogen 10 Creatinine 0.76 Random Glucose 73 Total Protein 8.4 Albumin 4.3 Calcium Level 10.0 Alkaline Phosphatase 64 Aspartate Amino Transf (AST/SGOT) 13 Alanine Aminotransferase (ALT/SGPT) 10 Total Bilirubin 1.0 Sodium Level 137 Potassium Level 3.2 Chloride Level 99 Carbon Dioxide Level 24.6 Anion Gap 13 Estimat Glomerular Filtration Rate 117 Lactic Acid Level 1.1 Lipase 126 Result Diagram: 06/11/17220906/11/172209 Imaging Last 72 hours Impressions Abdomen/Pelvis CT 06/11/172145 Signed Impressions: Service Date/Time: Sunday, June 11, 2017 23:22 - CONCLUSION: Severe acute/active Crohn's at and just upstream of the ileocolic anastomosis and causing bowel obstruction. No abscess or perforation. Felix Coe MD Caprinadelaida VTE Risk Assessment Caprini VTE Risk Assessment: No/Low Risk (score <= 1) Caprini Risk Assessment Model Point Value = 1 Point Value = 2 Point Value = 3 Point Value = 5 Age 41-60 Minor surgery BMI > 25 kg/m2 Swollen legs Varicose veins or History of unexplained or recurrent spontaneous Oral contraceptives or hormone replacement Sepsis (< 1 month) Serious lung disease, including pneumonia (< 1 month) Abnormal pulmonary function Acute myocardial infarction Congestive heart failure (< 1 month) History of inflammatory bowel disease Medical patient at bed rest Age 61-74 Arthroscopic surgery Major open surgery (> 45 min) Laparoscopic surgery (> 45 min) Malignancy Confined to bed (> 72 hours) Immobilizing plaster cast Central venous access Age >= 75 History of VTE Family history of VTE Factor V Leiden Prothrombin [id number] Lupus anticoagulant Anticardiolipin antibodies Elevated serum homocysteine Heparin-induced thrombocytopenia Other congenital or acquired thrombophilia Stroke (< 1 month) Elective arthroplasty Hip, pelvis, or leg fracture Acute spinal cord injury (< 1 month) Prophylaxis Regimen Total Risk Factor Score Risk Level Prophylaxis Regimen 0-1 Low Early ambulation 2 Moderate Order ONE of the following: *Sequential Compression Device (SCD) *Heparin 5000 units SQ BID 3-4 Higher Order ONE of the following medications: *Heparin 5000 units SQ TID *Enoxaparin/Lovenox 40 mg SQ daily (WT < 150 kg, CrCl > 30 mL/min) *Enoxaparin/Lovenox 30 mg SQ daily (WT < 150 kg, CrCl > 10-29 mL/min) *Enoxaparin/Lovenox 30 mg SQ BID (WT < 150 kg, CrCl > 30 mL/min) AND/OR *Sequential Compression Device (SCD) 5 or more Highest Order ONE of the following medications: *Heparin 5000 units SQ TID (Preferred with Epidurals) *Enoxaparin/Lovenox 40 mg SQ daily (WT < 150 kg, CrCl > 30 mL/min) *Enoxaparin/Lovenox 30 mg SQ daily (WT < 150 kg, CrCl > 10-29 mL/min) *Enoxaparin/Lovenox 30 mg SQ BID (WT < 150 kg, CrCl > 30 mL/min) AND *Sequential Compression Device (SCD) Assessment and Plan Problem List: (1) Small bowel obstruction ICD Codes: K56.609 - Unspecified intestinal obstruction, unspecified as to partial versus complete obstruction Status: Acute Plan: General surgery service has evaluated the patient and patient will be transferred to [facility] for likely surgical intervention. Continue NG tube , IV fluids and pain medication. Increase pain medication dose as pain not controlled with current regimen. Spoke with LUL, Anne Marie Au who evaluated pt for gen surgery. She is aware the patient has [email or web address] insurance. She reports [facility] or she will contact [facility] surgeons to further manage pt. I advised Dr Emerson of pt's pending transfer. Subsequently d/w Dr Sawant who is aware of pt, but is not sure if surgery will be needed. (2) Acute Crohn's disease with complication ICD Codes: K50.919 - Crohn's disease, unspecified, with unspecified complications Status: Acute Plan: as above. Code Status full Discussed Condition With pt, pt's father, Dr Emerson, Dr Jose Sawant, Anne Marie Au, LUL and Dr Hui who initially made me aware of pt's presence. Physician Certification 2 Midnight Certification Type: Admission for Inpatient Services Order for Inpatient Services The services are ordered in accordance with Medicare regulations or non- Medicare payer requirements, as applicable. In the case of services not specified as inpatient-only, they are appropriately provided as inpatient services in accordance with the 2-midnight benchmark. Estimated LOS (days): 2 days is the estimated time the patient will need to remain in the hospital, assuming treatment plan goals are met and no additional complications. Post-Hospital Plan: Home Marcelo Lou MD PhD Jun 12, 2017 12:28
[2017-06-12] MEDS: D5-NS + KCL 20 MEQ INJ 1,000 ML IV SCH ×2 (13:07→20:16)
[2017-06-12] MEDS: POTASSIUM CHLOR 20 MEQ PREMIX 100 ML IV SCH ×3 (13:07→16:45)
--- NOTE | 2017-06-12 15:09 | HHI.PR ---
cc: Jersey Sosa MD Subjective Subjective Notes Resting in bed Nauseous Objective Vitals/I&O Vital Signs Date Time Temp Pulse Resp B/P (MAP) Pulse Ox O2 Delivery O2 Flow Rate FiO2 06/12/17 12:30 96.2 68 12 129/82 (98) 97 06/12/17 02:30 Room Air Labs Laboratory Tests Test 06/11/17 22:10 White Blood Count 16.3 Red Blood Count 4.87 Hemoglobin 15.2 Hematocrit 44.2 Mean Corpuscular Volume 90.7 Mean Corpuscular Hemoglobin 31.3 Mean Corpuscular Hemoglobin Concent 34.5 Red Cell Distribution Width 14.1 Platelet Count 398 Mean Platelet Volume 7.6 Neutrophils (%) (Auto) 89.5 Lymphocytes (%) (Auto) 5.1 Monocytes (%) (Auto) 5.0 Eosinophils (%) (Auto) 0.2 Basophils (%) (Auto) 0.2 Neutrophils # (Auto) 14.7 Lymphocytes # (Auto) 0.8 Monocytes # (Auto) 0.8 Eosinophils # (Auto) 0.0 Basophils # (Auto) 0.0 CBC Comment DIFF FINAL Differential Comment Urine Collection Type CLEAN CATCH Urine Color YELLOW Urine Turbidity CLEAR Urine pH 6.0 Urine Specific [place] 1.025 Urine Protein 30 Urine Glucose (UA) NEG Urine Ketones 80 OR GREATER Urine Occult Blood NEG Urine Nitrite NEG Urine Bilirubin NEG Urine Urobilinogen 0.2 Urine Leukocyte Esterase NEG Urine WBC 0-2 Urine Squamous Epithelial Cells 0-5 Urine Mucus MANY Microscopic Urinalysis Comment CULT NOT INDICATED Blood Urea Nitrogen 10 Creatinine 0.76 Random Glucose 73 Total Protein 8.4 Albumin 4.3 Calcium Level 10.0 Alkaline Phosphatase 64 Aspartate Amino Transf (AST/SGOT) 13 Alanine Aminotransferase (ALT/SGPT) 10 Total Bilirubin 1.0 Sodium Level 137 Potassium Level 3.2 Chloride Level 99 Carbon Dioxide Level 24.6 Anion Gap 13 Estimat Glomerular Filtration Rate 117 Lactic Acid Level 1.1 Lipase 126 Cardiovascular: Regular Lungs: Clear Abdomen: Other (tender to palpation; multiple healed incisions; thin flat abdomen ) Extremities: No edema A/P Assessment and Plan 37 year old male with known Crohn's disease; CT abdomen/pelvis shows severe Crohn's disease and small bowel obstruction at ileocolic anastomosis -Insert NGT to LIWS -IVF -NPO -Transfer of care to Dr. Sawant with [facility] now that [facility] has been verified Attending Note - Dr. Sosa Patient known to me; he has not been taking Humira, as we discussed during last visit. Abdomen distended with stenosis at anastomosis and SBO proximal to this. NG to LIWS Possible consideration for exploration if no improvement. The exam, history, and the medical decision-making described in the above note were completed with the assistance of the mid-level provider. I reviewed and agree with the findings presented. I attest that I had a [id number] encounter with the patient on the same day, and personally performed and documented my assessment and findings in the medical record. Angelica Au/First Lida MCCARTY Jun 12, 2017 15:09 Jersey Sosa MD Jun 12, 2017 19:32
[2017-06-12] MEDS ORDERED: PHENOL 1.4% SOLN 180 ML BTL OROPHARYNG PRN (16:45)
[2017-06-13] VITALS: BP 141/90; PULSE 57; RESP 16; TEMP 97.6; O2SAT 98
[2017-06-13] MEDS: PIPERACIL-TAZO 4.5 GM PREMIX 100 ML IV SCH ×3 (00:38→12:49)
[2017-06-13] MEDS: D5-NS + KCL 20 MEQ INJ 1,000 ML IV SCH ×4 (00:39→16:18)
[2017-06-13] MEDS: MORPHINE SULFATE 4 MG/ML INJ IV PUSH PRN ×5 (00:40→21:07)
[2017-06-13 04:00] VITALS: BP 112/79; PULSE 60; RESP 16; TEMP 97.9; O2SAT 97
[2017-06-13 05:03] LABS: AUTOMATED NEUTROPHIL # 9.2 TH/MM3 (1.8-7.7); HEMOGLOBIN 13.4 GM/DL (13.0-17.0); LYMPH % 6.5 % (9.0-44.0); LYMPHOCYTE # 0.7 TH/MM3 (1.0-4.8); MEAN CELL VOLUME 93.2 FL (80.0-100.0); MEAN CORPUSCULAR HEMOGLOBIN 31.2 PG (27.0-34.0); MEAN CORPUSCULAR HGB CONC 33.5 % (32.0-36.0); MEAN PLATELET VOLUME 7.2 FL (7.0-11.0); MONO % 6.3 % (0.0-8.0); MONOCYTE # 0.7 TH/MM3 (0-0.9); NEUT % 87.2 % (16.0-70.0); PLATELET COUNT 295 TH/MM3 (150-450); RED BLOOD COUNT 4.29 MIL/MM3 (4.50-5.90); RED CELL DISTRIBUTION WIDTH 14.1 % (11.6-17.2); WHITE BLOOD COUNT 10.6 TH/MM3 (4.0-11.0)
[2017-06-13 05:19] LABS: ALBUMIN 3.1 GM/DL (3.4-5.0); AST (GOT) 14 U/L (15-37); BLOOD UREA NITROGEN 4 MG/DL (7-18); CALCIUM 8.6 MG/DL (8.5-10.1); CHLORIDE 107 MEQ/L (98-107); CREATININE 0.65 MG/DL (0.60-1.30); GLOMERULAR FILTRATION RATE 140 ML/MIN (>89); GLUCOSE,RANDOM 155 MG/DL (74-106); SODIUM (NA) 142 MEQ/L (136-145)
[2017-06-13 05:22] LABS: ALKALINE PHOSPHATASE 47 U/L (45-117); ALT (GPT) 10 U/L (12-78); TOTAL BILIRUBIN ADULT 0.3 MG/DL (0.2-1.0); TOTAL PROTEIN 6.6 GM/DL (6.4-8.2)
[2017-06-13 08:00] VITALS: BP 118/68; PULSE 65; RESP 20; TEMP 97.6; O2SAT 98
--- NOTE | 2017-06-13 08:49 | PD.CONS ---
HPI History of Present Illness This is a 37 year old male with Crohn's s/p partial small bowel resection, ileostomy, and ileostomy reversal, hx small bowel obstruction, who presented with n/v, abd pressure. About a week ago he noticed intense pressure, worse in the RLQ and that he was having less frequent BM where his norm is 4-5 loose stools daily. He did develop nausea and vomiting. He made himself NPO because he has had this problem in the past. Since yesterday he is feeling better, less distended and had an episode of flatus which he had not had in a few days. He was evaluated by our service during an admission 12/2016 and had colonoscopy that showed small ulcers consistent with Crohn's. GI has been consulted for untreated Crohn's, high grade PSBO at previous ileocolonic anastomosis and hx ulcer at that site causing obstruction. He does not take anything for his Crohn's. He did have a trial of mesalamine for a couple months and thinks it helped but is not on anything at this time. (Candace Pendleton) PFSH Past Medical History anxiety crohn's PSBO Past Surgical History partial small bowel resection ileostomy ileostomy reversal (Candace Pendleton) Coded Allergies: No Known Allergies (Unverified , 06/11/17) Family History MS lupus Social History no etoh, sober 10m smokes 1ppd occasional marijuana (Candace Pendleton) Review of Systems Constitutional: DENIES: Fever Endocrine: DENIES: Polydipsia Eyes: DENIES: Blurred vision Ears, nose, mouth, throat: DENIES: Hearing loss Respiratory: DENIES: Cough Cardiovascular: DENIES: Chest pain Gastrointestinal: COMPLAINS OF: Abdominal pain, Nausea, Vomiting, DENIES: Black stools, Bloody stools, Hematemesis Genitourinary: DENIES: Hematuria Musculoskeletal: DENIES: Joint Swelling Integumentary: DENIES: Jaundice Hematologic/lymphatic: DENIES: Bruising Immunologic/allergic: DENIES: Eczema Neurologic: DENIES: Abnormal gait Psychiatric: DENIES: Confusion (Candace Pendleton) GI Exam Vitals I&O Vital Signs Date Time Temp Pulse Resp B/P (MAP) Pulse Ox O2 Delivery O2 Flow Rate FiO2 06/13/17 08:00 97.6 65 20 118/68 (85) 98 06/13/17 04:00 97.9 60 16 112/79 (90) 97 06/13/17 00:00 97.6 57 16 141/90 (107) 98 06/12/17 20:00 67 06/12/17 20:00 98.1 63 16 139/85 (103) 100 06/12/17 17:12 98.0 82 18 127/82 (97) 98 06/12/17 12:30 96.2 68 12 129/82 (98) 97 I/O 06/12/17 06/12/17 06/12/17 06/13/17 06/13/17 06/13/17 07:00 15:00 23:00 07:00 15:00 23:00 Intake Total 1400 ml 765 ml 1300 ml 1000 ml Output Total 250 ml 1100 ml Balance 1400 ml 765 ml 1050 ml -100 ml Intake Oral 0 ml IV Total 1400 ml 765 ml 1300 ml 1000 ml Output Urine Total 1100 ml Gastric Drainage Total 250 ml # Voids 1 Imaging Last Impressions Abdomen/Pelvis CT 06/11/172145 Signed Impressions: Service Date/Time: Sunday, June 11, 2017 23:22 - CONCLUSION: Severe acute/active Crohn's at and just upstream of the ileocolic anastomosis and causing bowel obstruction. No abscess or perforation. Felix Coe MD Laboratory Test 06/13/17 04:32 White Blood Count 10.6 TH/MM3 Red Blood Count 4.29 MIL/MM3 Hemoglobin 13.4 GM/DL Hematocrit 40.0 % Mean Corpuscular Volume 93.2 FL Mean Corpuscular Hemoglobin 31.2 PG Mean Corpuscular Hemoglobin Concent 33.5 % Red Cell Distribution Width 14.1 % Platelet Count 295 TH/MM3 Mean Platelet Volume 7.2 FL Neutrophils (%) (Auto) 87.2 % Lymphocytes (%) (Auto) 6.5 % Monocytes (%) (Auto) 6.3 % Eosinophils (%) (Auto) 0.0 % Basophils (%) (Auto) 0.0 % Neutrophils # (Auto) 9.2 TH/MM3 Lymphocytes # (Auto) 0.7 TH/MM3 Monocytes # (Auto) 0.7 TH/MM3 Eosinophils # (Auto) 0.0 TH/MM3 Basophils # (Auto) 0.0 TH/MM3 CBC Comment DIFF FINAL Differential Comment Blood Urea Nitrogen 4 MG/DL Creatinine 0.65 MG/DL Random Glucose 155 MG/DL Total Protein 6.6 GM/DL Albumin 3.1 GM/DL Calcium Level 8.6 MG/DL Alkaline Phosphatase 47 U/L Aspartate Amino Transf (AST/SGOT) 14 U/L Alanine Aminotransferase (ALT/SGPT) 10 U/L Total Bilirubin 0.3 MG/DL Sodium Level 142 MEQ/L Potassium Level 3.8 MEQ/L Chloride Level 107 MEQ/L Carbon Dioxide Level 28.0 MEQ/L Anion Gap 7 MEQ/L Estimat Glomerular Filtration Rate 140 ML/MIN Physical Examination HEENT: PERRL; normocephalic; atraumatic; no jaundice. CHEST: CTA CARDIAC: RRR ABDOMEN: Soft, nondistended, diffuse TTP > RLQ; no hepatosplenomegaly; bowel sounds are present in all four quadrants. EXTREMITIES: No clubbing, cyanosis, or edema. SKIN: Normal; no rash; no jaundice. [employer]: No focal deficits; alert and oriented times three. (Candace Pendleton) Assessment and Plan Plan ASSESSMENT - N/V, abd pain- PSBO. CT showing severe active crohn's causing bowel obstruction. pt now has NGT and seems to be doing better, reports flatus, less distention, less pain. BS +. on steroids. Does not take meds for Crohn's. prior similar episode 12/2016, had Colonsocopy 12/2016 showing small ulcer c/w Crohn's. GS following. PLAN - continue steroids - NGT to LIWS - NPO - await GS consult - will need better control Crohn's - further recs after Dr Hernandez sees pt pt seen by myself and Dr Hernandez and this note is on her behalf (Candace Pendleton) Physician Comments seen, examined agree with above Due to lack of insurance he was never on any treatment for Crohn's disease , other than treatments administered during his hospitalizations and during his surgeries If repeat surgery, there is a concern for short bowel syndrome due to prior surgical history , wound healing due to malnutrition Agree with surgical training specialist to try to maximize medical treatment first before repeat surgical intervention We will increase Solumedrol to 40 mg q 6 hrs d/c Zosyn, we will start Flagyl/cipro Consider Remicade 5 mg/kg -275 mg - first dose inpatient (discuss with [facility] pharmacist and CP case repairer/pharmacist-[facility] will approve rx -referral , request to be submitted , if response obtained may need to continue infusion at 2 and 6 weeks, than every 8 weeks ) If extended hospitalization may need second dose of Remicade infused inpatient Malnutrition -patient was able to eat only 1 meal a day for many month, currently npo since Monday Consult milk bottling machine operator for TPN, we will start ppn while awaiting picc line insertion PICC line Continue ngt, bowel rest Obtain records from [place] Celiac panel Sed rate CRP (Madalyn Hernandez MD) Candace Pendleton [facility] Jun 13, 2017 08:49 Madalyn Hernandez MD Jun 13, 2017 13:48
[2017-06-13] MEDS: DOCUSATE SODIUM 50 MG/SENNA 8.6 MG TAB PO SCH ×2 (09:00→21:00)
--- NOTE | 2017-06-13 09:30 | HHI.PR ---
Subjective Remarks Patient resting in bed with NG tube to LIWS Patient reports positive flatus x 3 overnight Objective Vitals Vital Signs Date Time Temp Pulse Resp B/P (MAP) Pulse Ox O2 Delivery O2 Flow Rate FiO2 06/13/17 08:00 97.6 65 20 118/68 (85) 98 06/13/17 04:00 97.9 60 16 112/79 (90) 97 06/13/17 00:00 97.6 57 16 141/90 (107) 98 06/12/17 20:00 67 06/12/17 20:00 98.1 63 16 139/85 (103) 100 06/12/17 17:12 98.0 82 18 127/82 (97) 98 06/12/17 12:30 96.2 68 12 129/82 (98) 97 Result Diagram: 06/13/172 06/13/17431 Other Results Laboratory Tests Test 06/11/17 22:10 06/13/17 04:32 White Blood Count 16.3 TH/MM3 10.6 TH/MM3 Red Blood Count 4.87 MIL/MM3 4.29 MIL/MM3 Hemoglobin 15.2 GM/DL 13.4 GM/DL Hematocrit 44.2 % 40.0 % Mean Corpuscular Volume 90.7 FL 93.2 FL Mean Corpuscular Hemoglobin 31.3 PG 31.2 PG Mean Corpuscular Hemoglobin Concent 34.5 % 33.5 % Red Cell Distribution Width 14.1 % 14.1 % Platelet Count 398 TH/MM3 295 TH/MM3 Mean Platelet Volume 7.6 FL 7.2 FL Neutrophils (%) (Auto) 89.5 % 87.2 % Lymphocytes (%) (Auto) 5.1 % 6.5 % Monocytes (%) (Auto) 5.0 % 6.3 % Eosinophils (%) (Auto) 0.2 % 0.0 % Basophils (%) (Auto) 0.2 % 0.0 % Neutrophils # (Auto) 14.7 TH/MM3 9.2 TH/MM3 Lymphocytes # (Auto) 0.8 TH/MM3 0.7 TH/MM3 Monocytes # (Auto) 0.8 TH/MM3 0.7 TH/MM3 Eosinophils # (Auto) 0.0 TH/MM3 0.0 TH/MM3 Basophils # (Auto) 0.0 TH/MM3 0.0 TH/MM3 CBC Comment DIFF FINAL DIFF FINAL Differential Comment Urine Collection Type CLEAN CATCH Urine Color YELLOW Urine Turbidity CLEAR Urine pH 6.0 Urine Specific [place] 1.025 Urine Protein 30 mg/dL Urine Glucose (UA) NEG mg/dL Urine Ketones 80 OR GREATER mg/dL Urine Occult Blood NEG Urine Nitrite NEG Urine Bilirubin NEG Urine Urobilinogen 0.2 MG/DL Urine Leukocyte Esterase NEG Urine WBC 0-2 /hpf Urine Squamous Epithelial Cells 0-5 /hpf Urine Mucus MANY /lpf Microscopic Urinalysis Comment CULT NOT INDICATED Blood Urea Nitrogen 10 MG/DL 4 MG/DL Creatinine 0.76 MG/DL 0.65 MG/DL Random Glucose 73 MG/DL 155 MG/DL Total Protein 8.4 GM/DL 6.6 GM/DL Albumin 4.3 GM/DL 3.1 GM/DL Calcium Level 10.0 MG/DL 8.6 MG/DL Alkaline Phosphatase 64 U/L 47 U/L Aspartate Amino Transf (AST/SGOT) 13 U/L 14 U/L Alanine Aminotransferase (ALT/SGPT) 10 U/L 10 U/L Total Bilirubin 1.0 MG/DL 0.3 MG/DL Sodium Level 137 MEQ/L 142 MEQ/L Potassium Level 3.2 MEQ/L 3.8 MEQ/L Chloride Level 99 MEQ/L 107 MEQ/L Carbon Dioxide Level 24.6 MEQ/L 28.0 MEQ/L Anion Gap 13 MEQ/L 7 MEQ/L Estimat Glomerular Filtration Rate 117 ML/MIN 140 ML/MIN Lactic Acid Level 1.1 mmol/L Lipase 126 U/L Imaging Last 72 hours Impressions Abdomen/Pelvis CT 06/11/177 Signed Impressions: Service Date/Time: Sunday, June 11, 2017 23:22 - CONCLUSION: Severe acute/active Crohn's at and just upstream of the ileocolic anastomosis and causing bowel obstruction. No abscess or perforation. Felix Coe MD Objective Remarks GENERAL: This is a thin 37 year old male patient with NG tube to LIWS CARDIOVASCULAR: Regular rate and rhythm RESPIRATORY: Clear to auscultation. Breath sounds equal bilaterally. GASTROINTESTINAL: Abdomen soft, tender RLQ, nondistended. scant bowel sounds present MUSCULOSKELETAL: Extremities without clubbing, cyanosis, or edema. NEURO: Alert & Oriented x4 to person, place, time, situation. Moves all ext x4 A/P Problem List: (1) Small bowel obstruction ICD Codes: K56.609 - Unspecified intestinal obstruction, unspecified as to partial versus complete obstruction Status: Acute Plan: General surgery service has evaluated the patient and patient will be transferred to main hospital for likely surgical intervention. NPO Continue NG tube, IV fluids and pain medication. INEZ han Spoke with Anne Marie MCCARTY who evaluated pt for gen surgery. Since patient has [employer] insurance surgical consult has been changed to Dr. Sawant. Awaiting further recommendation per General surgery Consult has also been placed to GI (2) Acute Crohn's disease with complication ICD Codes: K50.919 - Crohn's disease, unspecified, with unspecified complications Status: Acute Plan: as above. Assessment and Plan Patient examined. Assessment and plan formulated with Clary Whitmore PA-C. I agree with the above. Crohn's disease with bowel obstruction. general surgery and GI following. ngt and ivf. on steroids. not sure we need iv abx..will defer to gi. DR Hernandez to see pt today but not sure that medical rx will reverse the process. Clary Whitmore Jun 13, 2017 09:30 Jose M Emerson MD Jun 13, 2017 13:39
[2017-06-13] MEDS: SODIUM CHLORIDE 0.9% FLUSH 10 ML FLUSH IV FLUSH SCH ×2 (09:50→21:08)
[2017-06-13] MEDS: methylPREDNISolone SOD SUCC 40 MG/1 ML VIAL IV PUSH SCH ×2 (09:50→17:44)
[2017-06-13 12:00] VITALS: BP 129/86; PULSE 60; RESP 19; TEMP 98; O2SAT 98
--- NOTE | 2017-06-13 14:44 | HHI.PR ---
Subjective Subjective Notes The patient states that he feels better today than he did yesterday when he was admitted to the hospital. His abdominal pain is less severe and is required less in the way of analgesics. He states that he feels less distended and he has begun to pass flatus. He otherwise has no complaints. Objective Vitals/I&O Vital Signs Date Time Temp Pulse Resp B/P (MAP) Pulse Ox O2 Delivery O2 Flow Rate FiO2 06/13/17 12:00 98.0 60 19 129/86 (100) 98 06/12/17 02:30 Room Air Labs Laboratory Tests Test 06/13/17 04:32 06/13/17 10:56 White Blood Count 10.6 Red Blood Count 4.29 Hemoglobin 13.4 Hematocrit 40.0 Mean Corpuscular Volume 93.2 Mean Corpuscular Hemoglobin 31.2 Mean Corpuscular Hemoglobin Concent 33.5 Red Cell Distribution Width 14.1 Platelet Count 295 Mean Platelet Volume 7.2 Neutrophils (%) (Auto) 87.2 Lymphocytes (%) (Auto) 6.5 Monocytes (%) (Auto) 6.3 Eosinophils (%) (Auto) 0.0 Basophils (%) (Auto) 0.0 Neutrophils # (Auto) 9.2 Lymphocytes # (Auto) 0.7 Monocytes # (Auto) 0.7 Eosinophils # (Auto) 0.0 Basophils # (Auto) 0.0 CBC Comment DIFF FINAL Differential Comment Blood Urea Nitrogen 4 Creatinine 0.65 Random Glucose 155 Total Protein 6.6 Albumin 3.1 Calcium Level 8.6 Alkaline Phosphatase 47 Aspartate Amino Transf (AST/SGOT) 14 Alanine Aminotransferase (ALT/SGPT) 10 Total Bilirubin 0.3 Sodium Level 142 Potassium Level 3.8 Chloride Level 107 Carbon Dioxide Level 28.0 Anion Gap 7 Estimat Glomerular Filtration Rate 140 Hepatitis B Surface Antigen NONREACTIVE Lungs: Clear Narrative Exam The abdomen exam is notable for mild distention and tenderness throughout with minimal voluntary guarding and percussive rebound in the right lower quadrant consistent with his Crohn's disease. A/P Assessment and Plan Impression: 37-year-old male with long history of Crohn's disease; status post previous ileocolonic resection and primary anastomosis with recurrent ulceration causing small bowel obstruction. He has not been adequately treated from a medical standpoint for his Crohn's disease. Plan: Surgery will follow along his course, but would anticipate him continuing to improve with institution of adequate therapy for the Crohn's. Should he require surgical intervention at some point he will certainly be scheduled. In the meantime surgery will defer to neurology for therapeutic intervention. Jose Sawant MD Jun 13, 2017 14:44
[2017-06-13] MEDS: CIPROFLOXACIN 400 MG PREMIX 200 ML IV SCH (15:57)
[2017-06-13] MEDS: metroNIDAZOLE 500 MG INJ 100 ML IV SCH ×2 (15:57→21:17)
[2017-06-13 16:00] VITALS: BP 136/64; PULSE 85; RESP 19; TEMP 98.7; O2SAT 99
[2017-06-13] MEDS ORDERED: SODIUM CHLORIDE 0.9% FLUSH 10 ML FLUSH IV FLUSH PRN (16:00)
[2017-06-13 17:11] LABS: C-REACTIVE PROTEIN 2.36 MG/DL (0.00-0.30)
[2017-06-13 20:00] VITALS: BP 134/86; PULSE 56; RESP 18; TEMP 97.9; O2SAT 99
[2017-06-13] MEDS: FAT EMULSION 20% INJ 250 ML (@10 mls/hr) IV SCH (21:17)
[2017-06-13] MEDS: CLINIMIX E 4.25/5 2000 mL- >42 mls/hr IV SCH ×3 (21:17)
[2017-06-14] VITALS (8 sets, daily range): BP systolic 114–143; BP diastolic 69–90; PULSE 53–67; RESP 16–18; TEMP 97.6–98.2; O2SAT 96–98
[2017-06-14] MEDS: MORPHINE SULFATE 4 MG/ML INJ IV PUSH PRN ×6 (00:10→23:16)
[2017-06-14] MEDS: D5-NS + KCL 20 MEQ INJ 1,000 ML IV SCH (00:12)
[2017-06-14] MEDS: methylPREDNISolone SOD SUCC 40 MG/1 ML VIAL IV PUSH SCH ×5 (00:16→23:07)
[2017-06-14] MEDS: CIPROFLOXACIN 400 MG PREMIX 200 ML IV SCH ×2 (05:31→14:51)
[2017-06-14] MEDS: metroNIDAZOLE 500 MG INJ 100 ML IV SCH ×4 (05:32→23:07)
[2017-06-14 05:59] LABS: AUTOMATED NEUTROPHIL # 8.2 TH/MM3 (1.8-7.7); BASOPHIL % 0.1 % (0.0-2.0); HEMOGLOBIN 13.1 GM/DL (13.0-17.0); LYMPH % 7.4 % (9.0-44.0); LYMPHOCYTE # 0.7 TH/MM3 (1.0-4.8); MEAN CELL VOLUME 92.1 FL (80.0-100.0); MEAN CORPUSCULAR HGB CONC 33.6 % (32.0-36.0); MEAN PLATELET VOLUME 7.4 FL (7.0-11.0); MONO % 6.3 % (0.0-8.0); MONOCYTE # 0.6 TH/MM3 (0-0.9); NEUT % 86.2 % (16.0-70.0); PLATELET COUNT 334 TH/MM3 (150-450); RED BLOOD COUNT 4.23 MIL/MM3 (4.50-5.90); RED CELL DISTRIBUTION WIDTH 14.1 % (11.6-17.2); WHITE BLOOD COUNT 9.5 TH/MM3 (4.0-11.0)
[2017-06-14 06:20] LABS: BICARBONATE 31.6 MEQ/L (21.0-32.0); CALCIUM 9.1 MG/DL (8.5-10.1); CREATININE 0.56 MG/DL (0.60-1.30)
[2017-06-14] MEDS: SODIUM CHLORIDE 0.9% FLUSH 10 ML FLUSH IV FLUSH SCH ×3 (09:00→23:45)
[2017-06-14] MEDS: DOCUSATE SODIUM 50 MG/SENNA 8.6 MG TAB PO SCH ×2 (09:25→23:07)
--- NOTE | 2017-06-14 10:43 | HHI.PR ---
Subjective Remarks Pt ambulating in the hallway He reports increased flatus and less abdominal cramping No BM Pt with NGT clamped currently but had just received medication Objective Vitals Vital Signs Date Time Temp Pulse Resp B/P (MAP) Pulse Ox O2 Delivery O2 Flow Rate FiO2 06/14/17 08:00 97.6 60 18 143/82 (102) 98 06/14/17 04:00 97.6 53 18 114/69 (84) 96 06/14/17 00:00 98.1 57 18 130/79 (96) 96 06/13/17 20:00 97.9 56 18 134/86 (102) 99 06/13/17 16:00 98.7 85 19 136/64 (88) 99 06/13/17 12:00 98.0 60 19 129/86 (100) 98 06/14/17 06/14/17 06/15/17 15:00 23:00 07:00 Output Total 400 ml Balance -400 ml Gastric Drainage Total 400 ml Result Diagram: 06/14/17 0530 06/14/17 0530 Other Results Laboratory Tests Test 06/13/17 04:32 06/13/17 10:56 06/13/17 15:53 06/14/17 05:30 White Blood Count 10.6 TH/MM3 9.5 TH/MM3 Red Blood Count 4.29 MIL/MM3 4.23 MIL/MM3 Hemoglobin 13.4 GM/DL 13.1 GM/DL Hematocrit 40.0 % 39.0 % Mean Corpuscular Volume 93.2 FL 92.1 FL Mean Corpuscular Hemoglobin 31.2 PG 31.0 PG Mean Corpuscular Hemoglobin Concent 33.5 % 33.6 % Red Cell Distribution Width 14.1 % 14.1 % Platelet Count 295 TH/MM3 334 TH/MM3 Mean Platelet Volume 7.2 FL 7.4 FL Neutrophils (%) (Auto) 87.2 % 86.2 % Lymphocytes (%) (Auto) 6.5 % 7.4 % Monocytes (%) (Auto) 6.3 % 6.3 % Eosinophils (%) (Auto) 0.0 % 0.0 % Basophils (%) (Auto) 0.0 % 0.1 % Neutrophils # (Auto) 9.2 TH/MM3 8.2 TH/MM3 Lymphocytes # (Auto) 0.7 TH/MM3 0.7 TH/MM3 Monocytes # (Auto) 0.7 TH/MM3 0.6 TH/MM3 Eosinophils # (Auto) 0.0 TH/MM3 0.0 TH/MM3 Basophils # (Auto) 0.0 TH/MM3 0.0 TH/MM3 CBC Comment DIFF FINAL DIFF FINAL Differential Comment Blood Urea Nitrogen 4 MG/DL 7 MG/DL Creatinine 0.65 MG/DL 0.56 MG/DL Random Glucose 155 MG/DL 132 MG/DL Total Protein 6.6 GM/DL Albumin 3.1 GM/DL Calcium Level 8.6 MG/DL 9.1 MG/DL Alkaline Phosphatase 47 U/L Aspartate Amino Transf (AST/SGOT) 14 U/L Alanine Aminotransferase (ALT/SGPT) 10 U/L Total Bilirubin 0.3 MG/DL Sodium Level 142 MEQ/L 138 MEQ/L Potassium Level 3.8 MEQ/L 4.0 MEQ/L Chloride Level 107 MEQ/L 104 MEQ/L Carbon Dioxide Level 28.0 MEQ/L 31.6 MEQ/L Anion Gap 7 MEQ/L 2 MEQ/L Estimat Glomerular Filtration Rate 140 ML/MIN 166 ML/MIN Hepatitis B Surface Antigen NONREACTIVE Erythrocyte Sedimentation Rate 10 mm/hr Iron Level 37 MCG/DL Ferritin 78 NG/ML C-Reactive Protein 2.36 MG/DL Vitamin B12 Level 521 PG/ML Imaging Last 72 hours Impressions Abdomen/Pelvis CT 06/11/172145 Signed Impressions: Service Date/Time: Sunday, June 11, 2017 23:22 - CONCLUSION: Severe acute/active Crohn's at and just upstream of the ileocolic anastomosis and causing bowel obstruction. No abscess or perforation. Felix Coe MD Objective Remarks GENERAL: This is a thin 37 year old male patient with NG tube CARDIO: Regular RESP: CTA bilaterally. ABD: +BS, soft, tender RLQ, nondistended. EXT: Extremities without clubbing, cyanosis, or edema. A/P Problem List: (1) Small bowel obstruction ICD Codes: K56.609 - Unspecified intestinal obstruction, unspecified as to partial versus complete obstruction Status: Acute Plan: - Pt is a 37 y/o male with long history of Crohn's disease s/p previous ileocolonic resection and primary anastomosis with recurrent ulceration causing small bowel obstruction. - General surgery service has evaluated the patient and patient was transferred to main hospital for possible surgical intervention. - Pt is NPO with NG tube in place and was started on TPN. - Appreciate GS evaluation and at this time no surgical intervention is planned. - Pt with some flatus and increased BS on exam on 06/14 - Pain medication PRN - Pt is on IV Solu-Medrol 40mg Q6H - Pt started on IV Flagyl and Cipro - Stop IVF - Appreciate GI consultation. - Spoke to Dr. Hernandez on 06/14 and she is attempting to get pt started on Remicade during this admission. Orders placed and protocol obtained from [facility] Infusion centers - Remicade will need to be approved by [facility]. (2) Acute Crohn's disease with complication ICD Codes: K50.919 - Crohn's disease, unspecified, with unspecified complications Status: Acute Plan: as above. Assessment and Plan Patient examined. Assessment and plan formulated with Alexa Ramos PA-C. I agree with the above. crohns dz. bowel obstruction picc/tpn. remicade being ordered.. Alexa Bhagat Jun 14, 2017 10:43 Jose M Emerson MD Jun 14, 2017 13:14
--- NOTE | 2017-06-14 12:00 | RADRPT ---
EXAM DATE/TIME: 06/14/2017 11:13 [place] COMPARISON: No previous studies available for comparison. INDICATIONS : Abdominal pain and tightness. MEDICAL HISTORY : Crohn's disease. SURGICAL HISTORY : Colon resection. Appendectomy. ENCOUNTER: Initial ACUITY: 4 - 6 days PAIN SCORE: 3/10 LOCATION: abdomen FINDINGS: Bowel gas pattern unremarkable. His gastric tube across the GE junction. The contrast in the colon. The portion of the bony skeleton visualized is unremarkable. CONCLUSION: Negative abdomen. Jovi Kennedy MD FACR on June 14, 2017 at 11:57 Board Certified Radiologist. This report was verified electronically.
--- NOTE | 2017-06-14 14:50 | HHI.GIFU ---
Subjective Remarks Pt resting in bed. Feeling much better. + flatus. (Candace Pendleton) Objective Vitals I&O Vital Signs Date Time Temp Pulse Resp B/P (MAP) Pulse Ox O2 Delivery O2 Flow Rate FiO2 06/14/17 12:00 98.0 63 16 131/69 (89) 96 06/14/17 08:00 97.6 60 18 143/82 (102) 98 06/14/17 04:00 97.6 53 18 114/69 (84) 96 06/14/17 00:00 98.1 57 18 130/79 (96) 96 06/13/17 20:00 97.9 56 18 134/86 (102) 99 06/13/17 16:00 98.7 85 19 136/64 (88) 99 I/O 06/13/17 06/13/17 06/13/17 06/14/17 06/14/17 06/14/17 07:00 15:00 23:00 07:00 15:00 23:00 Intake Total 1000 ml 100 ml 300 ml 1100 ml 373 ml Output Total 1100 ml 1700 ml 2250 ml 400 ml Balance -100 ml 100 ml -1400 ml -1150 ml -27 ml Intake Oral 0 ml IV Total 1000 ml 100 ml 300 ml 1100 ml 373 ml Output Urine Total 1100 ml 1500 ml 2250 ml Gastric Drainage Total 200 ml 400 ml Laboratory Laboratory Tests Test 06/13/17 15:53 06/14/17 05:30 Erythrocyte Sedimentation Rate 10 Iron Level 37 Ferritin 78 C-Reactive Protein 2.36 Vitamin B12 Level 521 White Blood Count 9.5 Red Blood Count 4.23 Hemoglobin 13.1 Hematocrit 39.0 Mean Corpuscular Volume 92.1 Mean Corpuscular Hemoglobin 31.0 Mean Corpuscular Hemoglobin Concent 33.6 Red Cell Distribution Width 14.1 Platelet Count 334 Mean Platelet Volume 7.4 Neutrophils (%) (Auto) 86.2 Lymphocytes (%) (Auto) 7.4 Monocytes (%) (Auto) 6.3 Eosinophils (%) (Auto) 0.0 Basophils (%) (Auto) 0.1 Neutrophils # (Auto) 8.2 Lymphocytes # (Auto) 0.7 Monocytes # (Auto) 0.6 Eosinophils # (Auto) 0.0 Basophils # (Auto) 0.0 CBC Comment DIFF FINAL Differential Comment Blood Urea Nitrogen 7 Creatinine 0.56 Random Glucose 132 Calcium Level 9.1 Sodium Level 138 Potassium Level 4.0 Chloride Level 104 Carbon Dioxide Level 31.6 Anion Gap 2 Estimat Glomerular Filtration Rate 166 Imaging Last Impressions Abdomen X-Ray 06/14/17 0000 Signed Impressions: Service Date/Time: Wednesday, June 14, 2017 11:13 - CONCLUSION: Negative abdomen. Jovi Kennedy MD FACR Abdomen/Pelvis CT 06/11/17 2146 Signed Impressions: Service Date/Time: Sunday, June 11, 2017 23:22 - CONCLUSION: Severe acute/active Crohn's at and just upstream of the ileocolic anastomosis and causing bowel obstruction. No abscess or perforation. Felix Coe MD Physical Exam HEENT: PERRL; normocephalic; atraumatic; no jaundice. CHEST: CTA CARDIAC: RRR ABDOMEN: Soft, nondistended, mild TTP lower quadrants; no hepatosplenomegaly; bowel sounds are present in all four quadrants. NGT to LIWS EXTREMITIES: No clubbing, cyanosis, or edema. SKIN: Normal; no rash; no jaundice. TROUBLE LOCATOR TEST DESK: No focal deficits; alert and oriented times three. (Candace Pendleton) Assessment and Plan Plan ASSESSMENT - N/V, abd pain- PSBO. CT showing severe active crohn's causing bowel obstruction. pt now has NGT and seems to be doing better, reports flatus, less distention, less pain. BS +. on steroids. Does not take meds for Crohn's. prior similar episode 12/2016, had Colonsocopy 12/2016 showing small ulcer c/w Crohn's. GS following. 06/14/17 KUB neg. pt feeling better. + flatus. WBC trending down. ESR 10. PLAN - continue abx - continue steroids - NGT to LIWS - TPN - Remicade pt seen by myself and Dr Hernandez and this note is on her behalf (Candace Pendleton) Physician Comments seen, examined agree with above pending approval from insurance for Remicade risk , benefits discussed with patient in agreement hep b and tb test in progress if not better we will reconsult surgery (Madalyn Hernandez MD) Candace Pendleton Jun 14, 2017 14:50 Madalyn Hernandez MD Jun 14, 2017 15:50
[2017-06-14] MEDS ORDERED: EPINEPHrine HCL (1:1000) 1 MG/ML VIAL OTHER PRN (15:00)
[2017-06-14] MEDS ORDERED: HYDROCORTISONE SOD SUCCINATE 100 MG VIAL IV PUSH PRN (15:00)
[2017-06-14] MEDS ORDERED: diphenhydrAMINE HCL 50 MG/ML VIAL IV PUSH PRN (15:00)
[2017-06-14] MEDS ORDERED: SODIUM CHLOR 0.9% 250 ML IV PRN (15:00)
[2017-06-14] MEDS ORDERED: diphenhydrAMINE HCL 25 MG CAP PO ONE (15:30)
[2017-06-14] MEDS ORDERED: ACETAMINOPHEN 325 MG TAB PO ONE (15:30)
[2017-06-14] MEDS ORDERED: INFLIXIMAB IV ONE (16:00)
[2017-06-14] MEDS ORDERED: SODIUM CHLOR 0.9% IV ONE (16:00)
[2017-06-14] MEDS: CLINIMIX E 4.25/5 2000 mL- >42 mls/hr IV SCH ×3 (19:53)
[2017-06-14] MEDS: FAT EMULSION 20% INJ 250 ML (@10 mls/hr) IV SCH (19:53)
[2017-06-15 00:40] VITALS: PULSE 58
[2017-06-15] MEDS: metroNIDAZOLE 500 MG INJ 100 ML IV SCH ×4 (02:35→22:01)
[2017-06-15] MEDS: CIPROFLOXACIN 400 MG PREMIX 200 ML IV SCH ×2 (02:35→14:29)
[2017-06-15 03:49] VITALS: PULSE 53
[2017-06-15] MEDS: methylPREDNISolone SOD SUCC 40 MG/1 ML VIAL IV PUSH SCH ×4 (04:45→23:12)
[2017-06-15 08:00] VITALS: BP 115/69; PULSE 59; RESP 20; TEMP 97.4; O2SAT 99
[2017-06-15] MEDS: SODIUM CHLORIDE 0.9% FLUSH 10 ML FLUSH IV FLUSH SCH ×3 (08:26→22:05)
[2017-06-15] MEDS: DOCUSATE SODIUM 50 MG/SENNA 8.6 MG TAB PO SCH ×2 (08:28→21:00)
--- NOTE | 2017-06-15 09:42 | HHI.PR ---
Subjective Remarks Pt had NGT clamped yesterday afternoon and has been doing well Still some flatus but no BM No increased abd pain, distension or nausea Pt received his Remicade infusion last night. Objective Vitals Vital Signs Date Time Temp Pulse Resp B/P (MAP) Pulse Ox O2 Delivery O2 Flow Rate FiO2 06/15/17 08:00 97.4 59 20 115/69 (84) 99 06/15/17 03:49 53 06/15/17 00:40 58 06/14/17 23:30 98.1 67 18 135/90 (105) 06/14/17 20:08 58 06/14/17 20:00 98.1 65 18 119/75 (90) 96 06/14/17 19:30 64 18 116/72 06/14/17 19:00 62 16 116/70 06/14/17 18:45 64 18 127/80 06/14/17 18:33 59 17 118/77 06/14/17 18:14 61 18 127/76 06/14/17 18:00 64 18 128/86 06/14/17 17:43 59 18 127/81 06/14/17 16:00 98.2 63 16 130/86 (101) 97 06/14/17 12:00 98.0 63 16 131/69 (89) 96 06/15/17 06/15/17 06/16/17 15:00 23:00 07:00 Intake Total 0 ml Balance 0 ml Intake Oral 0 ml Result Diagram: 06/14/17 0530 06/14/17 0530 Other Results Laboratory Tests Test 06/13/17 10:56 06/13/17 15:53 06/14/17 05:30 Hepatitis B Surface Antigen NONREACTIVE Erythrocyte Sedimentation Rate 10 mm/hr Iron Level 37 MCG/DL Ferritin 78 NG/ML C-Reactive Protein 2.36 MG/DL Vitamin B12 Level 521 PG/ML White Blood Count 9.5 TH/MM3 Red Blood Count 4.23 MIL/MM3 Hemoglobin 13.1 GM/DL Hematocrit 39.0 % Mean Corpuscular Volume 92.1 FL Mean Corpuscular Hemoglobin 31.0 PG Mean Corpuscular Hemoglobin Concent 33.6 % Red Cell Distribution Width 14.1 % Platelet Count 334 TH/MM3 Mean Platelet Volume 7.4 FL Neutrophils (%) (Auto) 86.2 % Lymphocytes (%) (Auto) 7.4 % Monocytes (%) (Auto) 6.3 % Eosinophils (%) (Auto) 0.0 % Basophils (%) (Auto) 0.1 % Neutrophils # (Auto) 8.2 TH/MM3 Lymphocytes # (Auto) 0.7 TH/MM3 Monocytes # (Auto) 0.6 TH/MM3 Eosinophils # (Auto) 0.0 TH/MM3 Basophils # (Auto) 0.0 TH/MM3 CBC Comment DIFF FINAL Differential Comment Blood Urea Nitrogen 7 MG/DL Creatinine 0.56 MG/DL Random Glucose 132 MG/DL Calcium Level 9.1 MG/DL Sodium Level 138 MEQ/L Potassium Level 4.0 MEQ/L Chloride Level 104 MEQ/L Carbon Dioxide Level 31.6 MEQ/L Anion Gap 2 MEQ/L Estimat Glomerular Filtration Rate 166 ML/MIN Imaging Last 72 hours Impressions Abdomen/Pelvis CT 06/11/172145 Signed Impressions: Service Date/Time: Sunday, June 11, 2017 23:22 - CONCLUSION: Severe acute/active Crohn's at and just upstream of the ileocolic anastomosis and causing bowel obstruction. No abscess or perforation. Felix Coe MD Objective Remarks GENERAL: This is a thin 37 year old male patient with NG tube CARDIO: Regular RESP: CTA bilaterally. ABD: +BS, soft, minimal RLQ tenderness, nondistended. EXT: Extremities without clubbing, cyanosis, or edema. A/P Problem List: (1) Small bowel obstruction ICD Codes: K56.609 - Unspecified intestinal obstruction, unspecified as to partial versus complete obstruction Status: Acute Plan: - Pt is a 37 y/o male with long history of Crohn's disease s/p previous ileocolonic resection and primary anastomosis with recurrent ulceration causing small bowel obstruction. - General surgery service has evaluated the patient and patient was transferred to main hospital for possible surgical intervention. - Pt is NPO with NG tube in place and was started on TPN. - Appreciate GS evaluation and at this time no surgical intervention is planned. - Pt with some flatus and increased BS on exam on 06/14 - Pain medication PRN - Pt is on IV Solu-Medrol 40mg Q6H - Pt started on IV Flagyl and Cipro - Appreciate GI consultation. - Pt started on Remicade on 06/14/17 - NGT clamped on 4/18 and pt is clinically stable - We will do a trial of clear liquids before removing the NGT. - No BM yet but passing some flatus - Cont. supportive care (2) Acute Crohn's disease with complication ICD Codes: K50.919 - Crohn's disease, unspecified, with unspecified complications Status: Acute Plan: as above. Assessment and Plan Patient examined. Assessment and plan formulated with Alexa Ramos PA-C. I agree with the above. crohns dz with bowel obstruction remicade. steroids. abx. convert ppn to tpn. clears. if tolerating then plan for ngt removal passing flatus. Alexa Ramos Jun 15, 2017 09:42 Jose M Emerson MD Jun 15, 2017 10:41
--- NOTE | 2017-06-15 11:28 | HHI.GIFU ---
Subjective Remarks Pt resting in bed. NGT is clamped and he is going to try clear liquids. No n/ v. + flatus, feels he may have BM soon. (Candace Pendleton) Objective Vitals I&O Vital Signs Date Time Temp Pulse Resp B/P (MAP) Pulse Ox O2 Delivery O2 Flow Rate FiO2 06/15/17 08:00 97.4 59 20 115/69 (84) 99 06/15/17 03:49 53 06/15/17 00:40 58 06/14/17 23:30 98.1 67 18 135/90 (105) 06/14/17 20:08 58 06/14/17 20:00 98.1 65 18 119/75 (90) 96 06/14/17 19:30 64 18 116/72 06/14/17 19:00 62 16 116/70 06/14/17 18:45 64 18 127/80 06/14/17 18:33 59 17 118/77 06/14/17 18:14 61 18 127/76 06/14/17 18:00 64 18 128/86 06/14/17 17:43 59 18 127/81 06/14/17 16:00 98.2 63 16 130/86 (101) 97 06/14/17 12:00 98.0 63 16 131/69 (89) 96 I/O 06/14/17 06/14/17 06/14/17 06/15/17 06/15/17 06/15/17 07:00 15:00 23:00 07:00 15:00 23:00 Intake Total 1100 ml 373 ml 2233 ml 1106 ml 0 ml Output Total 2250 ml 400 ml 2525 ml 900 ml Balance -1150 ml -27 ml -292 ml 206 ml 0 ml Intake Oral 0 ml 0 ml 0 ml IV Total 1100 ml 373 ml 2233 ml 1106 ml Output Urine Total 2250 ml 1725 ml 900 ml Gastric Drainage Total 400 ml 800 ml Laboratory Laboratory Tests Test 06/11/17 22:10 06/13/17 04:32 06/13/17 10:56 06/13/17 15:53 Urine Collection Type CLEAN CATCH Urine Color YELLOW Urine Turbidity CLEAR Urine pH 6.0 Urine Specific [place] 1.025 Urine Protein 30 mg/dL Urine Glucose (UA) NEG mg/dL Urine Ketones 80 OR GREATER mg/dL Urine Occult Blood NEG Urine Nitrite NEG Urine Bilirubin NEG Urine Urobilinogen 0.2 MG/DL Urine Leukocyte Esterase NEG Urine WBC 0-2 /hpf Urine Squamous Epithelial Cells 0-5 /hpf Urine Mucus MANY /lpf Microscopic Urinalysis Comment CULT NOT INDICATED Lactic Acid Level 1.1 mmol/L Lipase 126 U/L Blood Urea Nitrogen 4 MG/DL Creatinine 0.65 MG/DL Random Glucose 155 MG/DL Total Protein 6.6 GM/DL Albumin 3.1 GM/DL Calcium Level 8.6 MG/DL Alkaline Phosphatase 47 U/L Aspartate Amino Transf (AST/SGOT) 14 U/L Alanine Aminotransferase (ALT/SGPT) 10 U/L Total Bilirubin 0.3 MG/DL Sodium Level 142 MEQ/L Potassium Level 3.8 MEQ/L Chloride Level 107 MEQ/L Carbon Dioxide Level 28.0 MEQ/L Hepatitis B Surface Antigen NONREACTIVE Erythrocyte Sedimentation Rate 10 mm/hr Iron Level 37 MCG/DL Ferritin 78 NG/ML C-Reactive Protein 2.36 MG/DL Vitamin B12 Level 521 PG/ML Test 06/14/17 05:30 White Blood Count 9.5 TH/MM3 Red Blood Count 4.23 MIL/MM3 Hemoglobin 13.1 GM/DL Hematocrit 39.0 % Mean Corpuscular Volume 92.1 FL Mean Corpuscular Hemoglobin 31.0 PG Mean Corpuscular Hemoglobin Concent 33.6 % Red Cell Distribution Width 14.1 % Platelet Count 334 TH/MM3 Mean Platelet Volume 7.4 FL Neutrophils (%) (Auto) 86.2 % Lymphocytes (%) (Auto) 7.4 % Monocytes (%) (Auto) 6.3 % Eosinophils (%) (Auto) 0.0 % Basophils (%) (Auto) 0.1 % Neutrophils # (Auto) 8.2 TH/MM3 Lymphocytes # (Auto) 0.7 TH/MM3 Monocytes # (Auto) 0.6 TH/MM3 Eosinophils # (Auto) 0.0 TH/MM3 Basophils # (Auto) 0.0 TH/MM3 CBC Comment DIFF FINAL Differential Comment Blood Urea Nitrogen 7 MG/DL Creatinine 0.56 MG/DL Random Glucose 132 MG/DL Calcium Level 9.1 MG/DL Sodium Level 138 MEQ/L Potassium Level 4.0 MEQ/L Chloride Level 104 MEQ/L Carbon Dioxide Level 31.6 MEQ/L Anion Gap 2 MEQ/L Estimat Glomerular Filtration Rate 166 ML/MIN Imaging Last Impressions Abdomen X-Ray 06/14/17 0000 Signed Impressions: Service Date/Time: Wednesday, June 14, 2017 11:13 - CONCLUSION: Negative abdomen. Jovi Kennedy MD FACR Abdomen/Pelvis CT 06/11/176 Signed Impressions: Service Date/Time: Sunday, June 11, 2017 23:22 - CONCLUSION: Severe acute/active Crohn's at and just upstream of the ileocolic anastomosis and causing bowel obstruction. No abscess or perforation. Felix Coe MD Physical Exam HEENT: PERRL; normocephalic; atraumatic; no jaundice. CHEST: CTA CARDIAC: RRR ABDOMEN: Soft, nondistended, mild TTP lower quadrants; no hepatosplenomegaly; bowel sounds are present in all four quadrants. NGT clamped EXTREMITIES: No clubbing, cyanosis, or edema. SKIN: Normal; no rash; no jaundice. 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 (Candace Pendleton) Assessment and Plan Plan ASSESSMENT - N/V, abd pain- PSBO. CT showing severe active crohn's causing bowel obstruction. pt now has NGT and seems to be doing better, reports flatus, less distention, less pain. BS +. on steroids. Does not take meds for Crohn's. prior similar episode 12/2016, had Colonsocopy 12/2016 showing small ulcer c/w Crohn's. GS following. 06/14/17 KUB neg. pt feeling better. + flatus. WBC trending down. ESR 10. 06/15/17 continues to improve. NGT clamped, trying some clears. CRP 2.36H. awaiting remicade PLAN - continue abx - continue steroids - trial clear liquids - TPN - await Remicade initiation/approval pt seen by myself and Dr Hernandez and this note is on her behalf (Candace Pendleton) Physician Comments seen, examined agree with above had Remicade infusion yesterday started on clear liquids, did not tolerate well, feeling full, nauseated we will reconnect tube to suction and place him npo (Madalyn Hernandez MD) Candace Pendleton Jun 15, 2017 11:28 Madalyn Hernandez MD Jun 15, 2017 18:52
[2017-06-15 12:00] VITALS: BP 115/69; PULSE 59; RESP 20; TEMP 97.4; O2SAT 99
[2017-06-15] MEDS: MORPHINE SULFATE 2 MG/ML SYRINGE IV PUSH PRN ×2 (14:29→18:44)
[2017-06-15 15:50] LABS: MITOGEN MINUS NIL RESULT 9.84 IU/mL; NIL RESULT 0.09 IU/mL; QUANTIFERON TB GOLD + RESULT Negative (Negative); TB ANTIGEN MINUS NIL -0.01 IU/mL
[2017-06-15 16:00] VITALS: BP 127/80; PULSE 63; RESP 16; TEMP 98.4; O2SAT 98
[2017-06-15] MEDS: ONDANSETRON HCL 4 MG/2 ML VIAL IVP PRN (18:50)
[2017-06-15] MEDS: [UNRECOGNIZED DRUG - OTHER] IV-CENTRAL SCH ×3 (19:31)
[2017-06-15] MEDS: MULTIVITAMIN IV-CENTRAL SCH ×3 (19:31)
[2017-06-15] MEDS: AMINO ACID IV-CENTRAL SCH ×3 (19:31)
[2017-06-15] MEDS: FAT EMULSION 20% INJ 250 ML (@10 mls/hr) IV-CENTRAL SCH (19:31)
[2017-06-15] MEDS: FOLIC ACID IV-CENTRAL SCH ×3 (19:31)
[2017-06-15 20:00] VITALS: BP 132/84; PULSE 61; RESP 20; TEMP 98.3; O2SAT 98
[2017-06-15] MEDS: MORPHINE SULFATE 4 MG/ML INJ IV PUSH PRN (22:07)
[2017-06-16] VITALS (7 sets, daily range): BP systolic 128–150; BP diastolic 81–90; PULSE 56–67; RESP 17–20; TEMP 97.4–98.1; O2SAT 94–100
[2017-06-16] MEDS: MORPHINE SULFATE 4 MG/ML INJ IV PUSH PRN ×2 (01:59→20:46)
[2017-06-16] MEDS: metroNIDAZOLE 500 MG INJ 100 ML IV SCH ×4 (03:41→20:47)
[2017-06-16] MEDS: CIPROFLOXACIN 400 MG PREMIX 200 ML IV SCH ×2 (03:41→14:43)
[2017-06-16] MEDS: FOLIC ACID IV-CENTRAL SCH ×6 (06:25→19:57)
[2017-06-16] MEDS: [UNRECOGNIZED DRUG - OTHER] IV-CENTRAL SCH ×6 (06:25→19:57)
[2017-06-16] MEDS: MULTIVITAMIN IV-CENTRAL SCH ×6 (06:25→19:57)
[2017-06-16] MEDS: AMINO ACID IV-CENTRAL SCH ×6 (06:25→19:57)
[2017-06-16] MEDS: methylPREDNISolone SOD SUCC 40 MG/1 ML VIAL IV PUSH SCH ×4 (06:29→23:19)
[2017-06-16] MEDS: SODIUM CHLORIDE 0.9% FLUSH 10 ML FLUSH IV FLUSH SCH ×3 (09:00→20:04)
[2017-06-16] MEDS: DOCUSATE SODIUM 50 MG/SENNA 8.6 MG TAB PO SCH ×2 (09:34→20:05)
--- NOTE | 2017-06-16 10:55 | HHI.GIFU ---
Subjective Remarks Pt resting in bed States went to the bathroom prior to my arrival, only mucous and black material came out Passing mild amount of gas Can feel his bowels moving and states feels like he needs to have a BM Continued abdominal pain NGT to LIWS with 300 mL of brown material in suction canister (Stefanie Gray) Objective Vitals I&O Vital Signs Date Time Temp Pulse Resp B/P (MAP) Pulse Ox O2 Delivery O2 Flow Rate FiO2 06/16/17 08:00 97.4 59 17 133/86 (102) 99 06/16/17 04:06 97.8 56 20 129/82 (98) 98 06/16/17 00:10 56 06/16/17 00:00 98.1 65 20 129/84 (99) 97 06/15/17 20:00 98.3 61 20 132/84 (100) 98 06/15/17 16:00 98.4 63 16 127/80 (96) 98 06/15/17 12:00 97.4 59 20 115/69 (84) 99 I/O 06/15/17 06/15/17 06/15/17 06/16/17 06/16/17 06/16/17 07:00 15:00 23:00 07:00 15:00 23:00 Intake Total 1106 ml 100 ml 1642 ml 1137 ml Output Total 900 ml 3925 ml 450 ml Balance 206 ml 100 ml -2283 ml 687 ml Intake Oral 0 ml 238 ml IV Total 1106 ml 100 ml 1404 ml 1137 ml Output Urine Total 900 ml 3325 ml Gastric Drainage Total 600 ml 450 ml # Bowel Movements 0 Imaging Last Impressions Abdomen X-Ray 06/14/17 0000 Signed Impressions: Service Date/Time: Wednesday, June 14, 2017 11:13 - CONCLUSION: Negative abdomen. Jovi Kennedy MD FACR Abdomen/Pelvis CT 06/11/17 2676 Signed Impressions: Service Date/Time: Sunday, June 11, 2017 23:22 - CONCLUSION: Severe acute/active Crohn's at and just upstream of the ileocolic anastomosis and causing bowel obstruction. No abscess or perforation. Felix Coe MD Physical Exam HEENT: Normocephalic; atraumatic CHEST: Even/unlabored CARDIAC: RRR ABDOMEN: Soft, nondistended, mild diffuse tenderness, bowel sounds active. NGT to LIWS EXTREMITIES: No clubbing, cyanosis, or edema. SKIN: Normal; no rash; no jaundice. 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 (Stefanie Gray) Assessment and Plan Plan ASSESSMENT - Crohns disease with bowel obstruction- not on treatment due to lack of insurance Currently admitted with N/V/abdominal pain. CT abdomen and pelvis W IV contrast (06/11) --> Severe acute/active Crohn's at and just upstream of the ileocolic anastomosis and causing bowel obstruction. No abscess or perforation. Colonoscopy (01/13/17) --> Small ulcers consistent with Crohn disease, advanced ecchymosis and a small bowel side of the anastomosis. Pathology (right colon) colonic mucosa with focal budding and branching of crypts, suggestive of chronic IBD. There is focal acute inflammation of surface epithelium but no inflammation in crypt epithelium. Dysplasia not identified (ileum) focal acute inflammation of crypt epithelium with acute ulceration and deep chronic inflammation, suggestive of IBD. Areas are indeterminate for dysplasia but are probably reactive due to inflammation. Was placed on Mesalamine at that time. GS currently following- recommends medical management Pt currently on PPN. NGT to LIWS- was clamped yesterday with trial of clear liquids, however pt did not tolerate this so currently NPO. Received Remicade on 06/14. TB negative. ESR-10 CRP- 2.36 PLAN - Solumedrol - Cipro - Flagyl - PPN - NGT to LIWS with complete bowel rest - Monitor output - GS following - Possible need for repeat Remicade at 2 and 6 weeks - Celiac panel pending - Further recommendations based on clinical course This patient has been seen and examined by myself and Dr. Hernandez and this note is written on her behalf (Stefanie Gray) Physician Comments seen, examined agree with above sbft with Gastrografin Monday continue current treatment (Madalyn Hernandez MD) Stefanie Gray Jun 16, 2017 10:55 Madalyn Hernandez MD Jun 16, 2017 14:10
--- NOTE | 2017-06-16 11:26 | HHI.PR ---
Subjective Remarks Pt did not do well with the trial of clear liquids yesterday and had increased abd discomfort and fullness. He was placed back to LI and had out about 1000mL overnight. Some flatus No BM, passed small amount of dark mucous from rectum this morning. Objective Vitals Vital Signs Date Time Temp Pulse Resp B/P (MAP) Pulse Ox O2 Delivery O2 Flow Rate FiO2 06/16/17 08:00 97.4 59 17 133/86 (102) 99 06/16/17 04:06 97.8 56 20 129/82 (98) 98 06/16/17 00:10 56 06/16/17 00:00 98.1 65 20 129/84 (99) 97 06/15/17 20:00 98.3 61 20 132/84 (100) 98 06/15/17 16:00 98.4 63 16 127/80 (96) 98 06/15/17 12:00 97.4 59 20 115/69 (84) 99 Result Diagram: 06/14/17 0530 06/14/17 0530 Imaging Last 72 hours Impressions Abdomen/Pelvis CT 06/11/172145 Signed Impressions: Service Date/Time: Sunday, June 11, 2017 23:22 - CONCLUSION: Severe acute/active Crohn's at and just upstream of the ileocolic anastomosis and causing bowel obstruction. No abscess or perforation. Felix Coe MD Objective Remarks GENERAL: This is a thin 37 year old male patient with NG tube CARDIO: Regular RESP: CTA bilaterally. ABD: +BS, soft, minimal RLQ tenderness, nondistended. EXT: Extremities without clubbing, cyanosis, or edema. A/P Problem List: (1) Small bowel obstruction ICD Codes: K56.609 - Unspecified intestinal obstruction, unspecified as to partial versus complete obstruction Status: Acute Plan: - Pt is a 37 y/o male with long history of Crohn's disease s/p previous ileocolonic resection and primary anastomosis with recurrent ulceration causing small bowel obstruction. - General surgery service has evaluated the patient and patient was transferred to main hospital for possible surgical intervention. - Pt is NPO with NG tube in place and was started on TPN. - Appreciate GS evaluation and at this time no surgical intervention is planned. - Pt with some flatus and increased BS on exam on 06/14 - Pain medication PRN - Pt is on IV Solu-Medrol 40mg Q6H - Pt started on IV Flagyl and Cipro - Appreciate GI consultation. - Pt started on Remicade on 06/14/17 - NGT clamped on 06/14 but pt did not tolerate trial of clear liquids. He is back to LIWS - Monitor output - No BM yet but passing some flatus - Cont. supportive care (2) Acute Crohn's disease with complication ICD Codes: K50.919 - Crohn's disease, unspecified, with unspecified complications Status: Acute Plan: as above. Assessment and Plan Patient examined. Assessment and plan formulated with Alexa Ramos PA-C. I agree with the above. crohns dz with bowel obstruction unable to emmanuel clears. ngt to suction tpn. solumedro/abx/remicade. Alexa Ramos Jun 16, 2017 11:26 Jose M Emerson MD Jun 16, 2017 11:37
[2017-06-16] MEDS: MORPHINE SULFATE 2 MG/ML SYRINGE IV PUSH PRN (12:40)
[2017-06-16] MEDS: ONDANSETRON HCL 4 MG/2 ML VIAL IVP PRN (17:36)
[2017-06-16] MEDS: FAT EMULSION 20% INJ 250 ML (@10 mls/hr) IV-CENTRAL SCH (20:01)
[2017-06-17] VITALS (7 sets, daily range): BP systolic 126–156; BP diastolic 81–110; PULSE 52–94; RESP 17–22; TEMP 97.1–98.8; O2SAT 98–99
[2017-06-17] MEDS: MORPHINE SULFATE 4 MG/ML INJ IV PUSH PRN ×5 (00:46→22:19)
[2017-06-17] MEDS: ONDANSETRON HCL 4 MG/2 ML VIAL IVP PRN ×3 (00:46→17:52)
[2017-06-17] MEDS: CIPROFLOXACIN 400 MG PREMIX 200 ML IV SCH ×2 (03:00→15:02)
[2017-06-17] MEDS: methylPREDNISolone SOD SUCC 40 MG/1 ML VIAL IV PUSH SCH ×3 (06:21→17:50)
[2017-06-17] MEDS: metroNIDAZOLE 500 MG INJ 100 ML IV SCH ×3 (06:21→17:50)
[2017-06-17] MEDS: MULTIVITAMIN IV-CENTRAL SCH ×6 (08:07→20:36)
[2017-06-17] MEDS: [UNRECOGNIZED DRUG - OTHER] IV-CENTRAL SCH ×6 (08:07→20:36)
[2017-06-17] MEDS: AMINO ACID IV-CENTRAL SCH ×6 (08:07→20:36)
[2017-06-17] MEDS: SODIUM CHLORIDE 0.9% FLUSH 10 ML FLUSH IV FLUSH SCH ×3 (08:07→20:36)
[2017-06-17] MEDS: FOLIC ACID IV-CENTRAL SCH ×6 (08:07→20:36)
[2017-06-17] MEDS: DOCUSATE SODIUM 50 MG/SENNA 8.6 MG TAB PO SCH ×3 (08:08→20:37)
[2017-06-17] MEDS: LACTULOSE SYRUP 20 GM/30 ML CUP PO PRN (08:18)
--- NOTE | 2017-06-17 08:27 | HHI.PR ---
Subjective Subjective Notes The patient reports decreasing abdominal pain. He has had no flatus in the last 24 hours and had a small, mucus type bowel movement last night. He states he feels dry and has noticed that his urine output is decreased and that it is darker. He has no other complaints at this point. Objective Vitals/I&O Vital Signs Date Time Temp Pulse Resp B/P (MAP) Pulse Ox O2 Delivery O2 Flow Rate FiO2 06/17/17 04:00 97.1 52 19 126/81 (96) 99 Cardiovascular: Regular Lungs: Clear Abdomen: Non-distended Narrative Exam The patient's abdomen is softer and has much less tenderness than on earlier exam. A/P Assessment and Plan Impression: General improvement since institution of Remicade. He has no signs or symptoms that would indicate need for immediate surgery. Plan: I have ordered an increase in his fluid intake to 50 mL's of LR per hour. CBC and BMP are ordered for tomorrow morning. Jose Sawant MD Jun 17, 2017 08:27
--- NOTE | 2017-06-17 09:09 | HHI.PR ---
Subjective Remarks Pt reports no flatus in the last 24 hours He still feels gas/air moving around in the abdomen and still feels "fullness" in his abdomen Pt had out 1200cc from NGT overnight He has been ambulating in the halls He does feel like his urine output has decreased in the last day or so Objective Vitals Vital Signs Date Time Temp Pulse Resp B/P (MAP) Pulse Ox O2 Delivery O2 Flow Rate FiO2 06/17/17 04:00 97.1 52 19 126/81 (96) 99 06/17/17 00:00 97.8 67 18 139/88 (105) 98 06/16/17 20:00 98.1 63 19 150/90 (110) 100 06/16/17 16:00 97.6 65 17 128/81 (97) 97 06/16/17 12:00 98.1 67 17 140/84 (102) 94 Result Diagram: 06/14/17 0530 06/14/17 0530 Imaging Last 72 hours Impressions Abdomen/Pelvis CT 06/11/17 2146 Signed Impressions: Service Date/Time: Sunday, June 11, 2017 23:22 - CONCLUSION: Severe acute/active Crohn's at and just upstream of the ileocolic anastomosis and causing bowel obstruction. No abscess or perforation. Felix Coe MD Objective Remarks GENERAL: This is a thin 37 year old male patient with NG tube CARDIO: Regular RESP: CTA bilaterally. ABD: +BS, soft, minimal RLQ tenderness, nondistended. EXT: Extremities without clubbing, cyanosis, or edema. A/P Problem List: (1) Small bowel obstruction ICD Codes: K56.609 - Unspecified intestinal obstruction, unspecified as to partial versus complete obstruction Status: Acute Plan: - Pt is a 37 y/o male with long history of Crohn's disease s/p previous ileocolonic resection and primary anastomosis with recurrent ulceration causing small bowel obstruction. - General surgery service has evaluated the patient and patient was transferred to main hospital for possible surgical intervention. - Pt is NPO with NG tube in place and was started on TPN. - Appreciate GS evaluation and at this time no surgical intervention is planned. - Pain medication PRN - Pt is on IV Solu-Medrol 40mg Q6H - Pt started on IV Flagyl and Cipro - Appreciate GI consultation. - Pt started on Remicade on 06/14/17 - NGT clamped on 06/14 but pt did not tolerate trial of clear liquids. He is back to LIWS - Pt with decreased flatus on 06/17 and some increased abdominal cramping - Encourage ambulation - Monitor NGT output - Pt started back on some IVF on 06/17 - Cont. supportive care (2) Acute Crohn's disease with complication ICD Codes: K50.919 - Crohn's disease, unspecified, with unspecified complications Status: Acute Plan: as above. Assessment and Plan Patient examined. Assessment and plan formulated with Alexa Ramos PA-C. I agree with the above. crohns dz with bowel obstruction. remicade. solumedrol. abx. cont tpn and ngt. ambulate. pt on prn morphine. will try a few doses of ofirmev in effort to limit narcotic pain meds. GI/Gen surg following. updated his father. Alexa Ramos Jun 17, 2017 09:09 Jose M Emerson MD Jun 17, 2017 11:49
[2017-06-17] MEDS: LACTATED RINGER'S 1000 ML INJ 1,000 ML IV SCH (09:20)
[2017-06-17] MEDS ORDERED: ACETAMINOPHEN 1000 MG/100 ML VIAL IV PRN (12:00)
--- NOTE | 2017-06-17 13:14 | HHI.GIFU ---
Subjective Remarks Pt resting in bed Still no BM and has not passed gas since Monday States can feel gas in his abdomen Still with NGT to LIWS On TPN Objective Vitals I&O Vital Signs Date Time Temp Pulse Resp B/P (MAP) Pulse Ox O2 Delivery O2 Flow Rate FiO2 06/17/17 12:00 98.8 94 19 156/99 (118) 99 06/17/17 08:00 97.4 61 22 143/91 (108) 98 06/17/17 04:00 97.1 52 19 126/81 (96) 99 06/17/17 00:00 97.8 67 18 139/88 (105) 98 06/16/17 20:00 98.1 63 19 150/90 (110) 100 06/16/17 16:00 97.6 65 17 128/81 (97) 97 I/O 06/16/17 06/16/17 06/16/17 06/17/17 06/17/17 06/17/17 07:00 15:00 23:00 07:00 15:00 23:00 Intake Total 1137 ml 1230 ml 0 ml Output Total 450 ml 450 ml 1550 ml Balance 687 ml -450 ml -320 ml 0 ml Intake Oral 0 ml 0 ml IV Total 1137 ml 1230 ml Output Urine Total 350 ml 450 ml Gastric Drainage Total 450 ml 100 ml 1100 ml # Voids 4 # Bowel Movements 0 Imaging Last Impressions Abdomen X-Ray 06/14/17 0000 Signed Impressions: Service Date/Time: Wednesday, June 14, 2017 11:13 - CONCLUSION: Negative abdomen. Jovi Kennedy MD FACR Abdomen/Pelvis CT 06/11/17 2146 Signed Impressions: Service Date/Time: Sunday, June 11, 2017 23:22 - CONCLUSION: Severe acute/active Crohn's at and just upstream of the ileocolic anastomosis and causing bowel obstruction. No abscess or perforation. Felix Coe MD Physical Exam HEENT: Normocephalic; atraumatic CHEST: Even/unlabored CARDIAC: RRR ABDOMEN: Soft, nondistended, mild diffuse tenderness, bowel sounds active. NGT to LIWS EXTREMITIES: No clubbing, cyanosis, or edema. SKIN: Normal; no rash; no jaundice. 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 Assessment and Plan Plan ASSESSMENT - Crohns disease with bowel obstruction- not on treatment due to lack of insurance Currently admitted with N/V/abdominal pain. CT abdomen and pelvis W IV contrast (06/11) --> Severe acute/active Crohn's at and just upstream of the ileocolic anastomosis and causing bowel obstruction. No abscess or perforation. Colonoscopy (01/13/17) --> Small ulcers consistent with Crohn disease, advanced ecchymosis and a small bowel side of the anastomosis. Pathology (right colon) colonic mucosa with focal budding and branching of crypts, suggestive of chronic IBD. There is focal acute inflammation of surface epithelium but no inflammation in crypt epithelium. Dysplasia not identified (ileum) focal acute inflammation of crypt epithelium with acute ulceration and deep chronic inflammation, suggestive of IBD. Areas are indeterminate for dysplasia but are probably reactive due to inflammation. Was placed on Mesalamine at that time. GS currently following- recommends medical management Pt currently on PPN. NGT to LIWS- was clamped yesterday with trial of clear liquids, however pt did not tolerate this so currently NPO. Received Remicade on 06/14. TB negative. ESR-10 CRP- 2.36 (06/17) --> No significant changes over night. Still with NGT to LIWS. Continued abdominal pain. No BM, has not passed gas since Monday. PLAN - SBFT on Monday - Solumedrol - Cipro - Flagyl - PPN - NGT to LIWS with complete bowel rest - Monitor output - GS following - Possible need for repeat Remicade at 2 and 6 weeks - Celiac panel pending - Further recommendations based on clinical course This patient has been seen and examined by myself and Dr. Galvez and this note is written on his behalf Stefanie Gray Jun 17, 2017 13:14
[2017-06-17] MEDS: FAT EMULSION 20% INJ 250 ML (@10 mls/hr) IV-CENTRAL SCH (20:36)
[2017-06-18] VITALS: BP 124/81; PULSE 71; RESP 17; TEMP 97.6; O2SAT 98
[2017-06-18] MEDS: metroNIDAZOLE 500 MG INJ 100 ML IV SCH ×4 (00:56→18:03)
[2017-06-18] MEDS: methylPREDNISolone SOD SUCC 40 MG/1 ML VIAL IV PUSH SCH ×4 (00:57→18:03)
[2017-06-18] MEDS: CIPROFLOXACIN 400 MG PREMIX 200 ML IV SCH ×2 (03:11→14:50)
[2017-06-18 03:50] LABS: ENDOMYSIAL AB SCREEN ND (NEGATIVE); ENDOMYSIAL AB TITER ND (<1:5)
[2017-06-18 04:00] VITALS: BP 137/95; PULSE 58; RESP 17; TEMP 97.6; O2SAT 98
[2017-06-18] MEDS: LACTATED RINGER'S 1000 ML INJ 1,000 ML IV SCH (05:14)
[2017-06-18 06:58] LABS: AUTOMATED NEUTROPHIL # 13.8 TH/MM3 (1.8-7.7); BASOPHIL % 0.2 % (0.0-2.0); HEMATOCRIT 41.9 % (39.0-51.0); HEMOGLOBIN 14.1 GM/DL (13.0-17.0); LYMPH % 10.7 % (9.0-44.0); LYMPHOCYTE # 1.9 TH/MM3 (1.0-4.8); MEAN CELL VOLUME 92.1 FL (80.0-100.0); MEAN CORPUSCULAR HGB CONC 33.7 % (32.0-36.0); MEAN PLATELET VOLUME 7.9 FL (7.0-11.0); MONO % 11.4 % (0.0-8.0); NEUT % 77.7 % (16.0-70.0); PLATELET COUNT 373 TH/MM3 (150-450); RED BLOOD COUNT 4.55 MIL/MM3 (4.50-5.90); RED CELL DISTRIBUTION WIDTH 13.6 % (11.6-17.2); WHITE BLOOD COUNT 17.8 TH/MM3 (4.0-11.0)
[2017-06-18 07:14] LABS: BICARBONATE 32.7 MEQ/L (21.0-32.0); CREATININE 0.62 MG/DL (0.60-1.30)
[2017-06-18 08:00] VITALS: BP 143/85; PULSE 68; RESP 18; TEMP 97.3; O2SAT 98
[2017-06-18] MEDS: DOCUSATE SODIUM 50 MG/SENNA 8.6 MG TAB PO SCH ×2 (08:34→20:13)
[2017-06-18] MEDS: MULTIVITAMIN IV-CENTRAL SCH ×6 (08:48→20:11)
[2017-06-18] MEDS: AMINO ACID IV-CENTRAL SCH ×6 (08:48→20:11)
[2017-06-18] MEDS: FOLIC ACID IV-CENTRAL SCH ×6 (08:48→20:11)
[2017-06-18] MEDS: [UNRECOGNIZED DRUG - OTHER] IV-CENTRAL SCH ×6 (08:48→20:11)
[2017-06-18] MEDS: SODIUM CHLORIDE 0.9% FLUSH 10 ML FLUSH IV FLUSH SCH ×3 (08:49→20:11)
--- NOTE | 2017-06-18 09:33 | HHI.PR ---
Subjective Remarks Pt still without any flatus since 06/16/17 He put out about 1125cc from NGT but nurse reports that the suction on the NGT has not been working properly for LIWS He still describes increased abdominal fullness Objective Vitals Vital Signs Date Time Temp Pulse Resp B/P (MAP) Pulse Ox O2 Delivery O2 Flow Rate FiO2 06/18/17 08:00 97.3 68 18 143/85 (104) 98 06/18/17 04:00 97.6 58 17 137/95 (109) 98 06/18/17 00:00 97.6 71 17 124/81 (95) 98 06/17/17 20:00 98.3 77 17 139/86 (103) 98 06/17/17 16:00 98.1 91 20 144/110 (121) 98 06/17/17 13:34 64 131/86 (101) 06/17/17 12:00 98.8 94 19 156/99 (118) 99 Result Diagram: 06/18/17 0600 06/18/17 0600 Other Results Laboratory Tests Test 06/18/17 06:00 White Blood Count 17.8 TH/MM3 Red Blood Count 4.55 MIL/MM3 Hemoglobin 14.1 GM/DL Hematocrit 41.9 % Mean Corpuscular Volume 92.1 FL Mean Corpuscular Hemoglobin 31.0 PG Mean Corpuscular Hemoglobin Concent 33.7 % Red Cell Distribution Width 13.6 % Platelet Count 373 TH/MM3 Mean Platelet Volume 7.9 FL Neutrophils (%) (Auto) 77.7 % Lymphocytes (%) (Auto) 10.7 % Monocytes (%) (Auto) 11.4 % Eosinophils (%) (Auto) 0.0 % Basophils (%) (Auto) 0.2 % Neutrophils # (Auto) 13.8 TH/MM3 Lymphocytes # (Auto) 1.9 TH/MM3 Monocytes # (Auto) 2.0 TH/MM3 Eosinophils # (Auto) 0.0 TH/MM3 Basophils # (Auto) 0.0 TH/MM3 CBC Comment DIFF FINAL Differential Comment Blood Urea Nitrogen 13 MG/DL Creatinine 0.62 MG/DL Random Glucose 211 MG/DL Calcium Level 9.0 MG/DL Sodium Level 141 MEQ/L Potassium Level 3.6 MEQ/L Chloride Level 100 MEQ/L Carbon Dioxide Level 32.7 MEQ/L Anion Gap 8 MEQ/L Estimat Glomerular Filtration Rate 148 ML/MIN Imaging Last 72 hours Impressions Abdomen/Pelvis CT 06/11/17 5725 Signed Impressions: Service Date/Time: Sunday, June 11, 2017 23:22 - CONCLUSION: Severe acute/active Crohn's at and just upstream of the ileocolic anastomosis and causing bowel obstruction. No abscess or perforation. Felix Coe MD Objective Remarks GENERAL: This is a thin 37 year old male patient with NG tube CARDIO: Regular RESP: CTA bilaterally. ABD: +BS, soft, minimal RLQ tenderness, nondistended. EXT: Extremities without clubbing, cyanosis, or edema. A/P Problem List: (1) Small bowel obstruction ICD Codes: K56.609 - Unspecified intestinal obstruction, unspecified as to partial versus complete obstruction Status: Acute Plan: - Pt is a 37 y/o male with long history of Crohn's disease s/p previous ileocolonic resection and primary anastomosis with recurrent ulceration causing small bowel obstruction. - General surgery service has evaluated the patient and patient was transferred to main hospital for possible surgical intervention. - Pt is NPO with NG tube in place and was started on TPN. - Appreciate GS evaluation and at this time no surgical intervention is planned. - Pain medication PRN - Pt is on IV Solu-Medrol 40mg Q6H - Pt started on IV Flagyl and Cipro - Appreciate GI consultation. - Pt started on Remicade on 06/14/17. GI recommending that pt may need repeat Remicade at 2 and 6 weeks - NGT clamped on 06/14 but pt did not tolerate trial of clear liquids. He is back to LIWS - Pt with decreased flatus on 06/16 and some increased abdominal cramping - Encourage ambulation - Spoke with Dr. Sawant on 06/18, he would prefer to have an evaluation with CT Abd/pelvis with po contrast on Monday as opposed to SBFT, this has been ordered. - Monitor NGT output - Pt started back on some IVF on 06/17 - Cont. supportive care (2) Acute Crohn's disease with complication ICD Codes: K50.919 - Crohn's disease, unspecified, with unspecified complications Status: Acute Plan: as above. Assessment and Plan Patient examined. Assessment and plan formulated with Alexa Ramos PA-C. I agree with the above. crohns with obstruction. no flatus/bm overnight. s/p remicade infusion.. solumedrol/abx tpn. surgery and GI following. Alexa Ramos Jun 18, 2017 09:32 Jose M Emerson MD Jun 18, 2017 16:06
--- NOTE | 2017-06-18 10:05 | HHI.PR ---
Subjective Subjective Notes His abdominal pain is the same or slightly worse. He is able to still get out of bed and walk with minimal difficulty. He has passed no flatus. Objective Vitals/I&O Vital Signs Date Time Temp Pulse Resp B/P (MAP) Pulse Ox O2 Delivery O2 Flow Rate FiO2 06/18/17 08:00 97.3 68 18 143/85 (104) 98 Labs Laboratory Tests Test 06/18/17 06:00 White Blood Count 17.8 Red Blood Count 4.55 Hemoglobin 14.1 Hematocrit 41.9 Mean Corpuscular Volume 92.1 Mean Corpuscular Hemoglobin 31.0 Mean Corpuscular Hemoglobin Concent 33.7 Red Cell Distribution Width 13.6 Platelet Count 373 Mean Platelet Volume 7.9 Neutrophils (%) (Auto) 77.7 Lymphocytes (%) (Auto) 10.7 Monocytes (%) (Auto) 11.4 Eosinophils (%) (Auto) 0.0 Basophils (%) (Auto) 0.2 Neutrophils # (Auto) 13.8 Lymphocytes # (Auto) 1.9 Monocytes # (Auto) 2.0 Eosinophils # (Auto) 0.0 Basophils # (Auto) 0.0 CBC Comment DIFF FINAL Differential Comment Blood Urea Nitrogen 13 Creatinine 0.62 Random Glucose 211 Calcium Level 9.0 Sodium Level 141 Potassium Level 3.6 Chloride Level 100 Carbon Dioxide Level 32.7 Anion Gap 8 Estimat Glomerular Filtration Rate 148 Cardiovascular: Regular Lungs: Clear Narrative Exam The patient's abdomen is moderately distended. He has minimal tenderness except to deep palpation. He still has no peritoneal signs. There is a slight mass-effect in the right lower quadrant. A/P Assessment and Plan Impression: Slight overall worsening with an increased white blood count of 17, 800. While this could be a steroid effect, it could be indication of an abscess forming. He has continued to experience diminished bowel function with no flatus or bowel movements in the last 48 hours. There is still no evidence of peritonitis. Plan: I would prefer to stop the small bowel follow-through for tomorrow. I will order a CT scan of the abdomen and pelvis to reevaluate for the possibility of abscess. He may will require surgical intervention in the next several days if he does not improve from here. Jose Sawant MD Jun 18, 2017 10:05
[2017-06-18] MEDS: NS + KCL 20 MEQ INJ 1,000 ML IV SCH ×2 (10:44→20:11)
[2017-06-18] MEDS: MORPHINE SULFATE 4 MG/ML INJ IV PUSH PRN ×4 (11:35→21:12)
[2017-06-18 12:00] VITALS: BP 148/94; PULSE 71; RESP 19; TEMP 98.2; O2SAT 98
--- NOTE | 2017-06-18 13:49 | HHI.GIFU ---
Subjective Remarks Pt resting in bed Complaining of abdominal bloating and cramping NGT to LIWS with 700 mL of output in suction canister Still with no flatus or BM (Stefanie Gray) Objective Vitals I&O Vital Signs Date Time Temp Pulse Resp B/P (MAP) Pulse Ox O2 Delivery O2 Flow Rate FiO2 06/18/17 08:00 97.3 68 18 143/85 (104) 98 06/18/17 04:00 97.6 58 17 137/95 (109) 98 06/18/17 00:00 97.6 71 17 124/81 (95) 98 06/17/17 20:00 98.3 77 17 139/86 (103) 98 06/17/17 16:00 98.1 91 20 144/110 (121) 98 I/O 06/17/17 06/17/17 06/17/17 06/18/17 06/18/17 06/18/17 07:00 15:00 23:00 07:00 15:00 23:00 Intake Total 1230 ml 0 ml 1550 ml 540 ml Output Total 1550 ml 1625 ml 900 ml Balance -320 ml 0 ml -75 ml -360 ml Intake Oral 0 ml 0 ml 0 ml 240 ml IV Total 1230 ml 1550 ml 300 ml Output Urine Total 450 ml 800 ml 600 ml Gastric Drainage Total 1100 ml 825 ml 300 ml # Voids 4 # Bowel Movements 0 Laboratory Laboratory Tests Test 06/18/17 06:00 White Blood Count 17.8 Red Blood Count 4.55 Hemoglobin 14.1 Hematocrit 41.9 Mean Corpuscular Volume 92.1 Mean Corpuscular Hemoglobin 31.0 Mean Corpuscular Hemoglobin Concent 33.7 Red Cell Distribution Width 13.6 Platelet Count 373 Mean Platelet Volume 7.9 Neutrophils (%) (Auto) 77.7 Lymphocytes (%) (Auto) 10.7 Monocytes (%) (Auto) 11.4 Eosinophils (%) (Auto) 0.0 Basophils (%) (Auto) 0.2 Neutrophils # (Auto) 13.8 Lymphocytes # (Auto) 1.9 Monocytes # (Auto) 2.0 Eosinophils # (Auto) 0.0 Basophils # (Auto) 0.0 CBC Comment DIFF FINAL Differential Comment Blood Urea Nitrogen 13 Creatinine 0.62 Random Glucose 211 Calcium Level 9.0 Sodium Level 141 Potassium Level 3.6 Chloride Level 100 Carbon Dioxide Level 32.7 Anion Gap 8 Estimat Glomerular Filtration Rate 148 Imaging Last Impressions Abdomen X-Ray 06/14/17 0000 Signed Impressions: Service Date/Time: Wednesday, June 14, 2017 11:13 - CONCLUSION: Negative abdomen. Jovi Kennedy MD FACR Abdomen/Pelvis CT 06/11/17 2146 Signed Impressions: Service Date/Time: Sunday, June 11, 2017 23:22 - CONCLUSION: Severe acute/active Crohn's at and just upstream of the ileocolic anastomosis and causing bowel obstruction. No abscess or perforation. Felix Coe MD Physical Exam HEENT: Normocephalic; atraumatic CHEST: Even/unlabored CARDIAC: RRR ABDOMEN: Soft, distended, mild diffuse tenderness, bowel sounds active. NGT to LIWS EXTREMITIES: No clubbing, cyanosis, or edema. SKIN: Normal; no rash; no jaundice. DIAPER MACHINE TENDER: No focal deficits; alert and oriented times three. (Stefanie Gray [facility]) Assessment and Plan Plan ASSESSMENT - Crohns disease with bowel obstruction- not on treatment due to lack of insurance Currently admitted with N/V/abdominal pain. CT abdomen and pelvis W IV contrast (06/11) --> Severe acute/active Crohn's at and just upstream of the ileocolic anastomosis and causing bowel obstruction. No abscess or perforation. Colonoscopy (01/13/17) --> Small ulcers consistent with Crohn disease, advanced ecchymosis and a small bowel side of the anastomosis. Pathology (right colon) colonic mucosa with focal budding and branching of crypts, suggestive of chronic IBD. There is focal acute inflammation of surface epithelium but no inflammation in crypt epithelium. Dysplasia not identified (ileum) focal acute inflammation of crypt epithelium with acute ulceration and deep chronic inflammation, suggestive of IBD. Areas are indeterminate for dysplasia but are probably reactive due to inflammation. Was placed on Mesalamine at that time. GS currently following- recommends medical management Pt currently on PPN. NGT to LIWS- was clamped yesterday with trial of clear liquids, however pt did not tolerate this so currently NPO. Received Remicade on 06/14. TB negative. ESR-10 CRP- 2.36 (06/17) --> No significant changes over night. Still with NGT to LIWS. Continued abdominal pain. No BM, has not passed gas since Monday. (06/18) Still with no flatus or BM. NGT to LIWS with 700 mL of output in suction canister. Surgery following, SBFT cancelled for tomorrow by Dr. Sawant. He has ordered CT to reevaluate the possibility for abscess, states possible need for surgical intervention in the next several days if no improvement. CT abdomen and pelvis pending. PLAN - CT abdomen and pelvis - Solumedrol - Cipro - Flagyl - PPN - NGT to LIWS with complete bowel rest - Monitor output - GS following - Possible need for repeat Remicade at 2 and 6 weeks - Celiac panel pending - Further recommendations based on clinical course This patient has been seen and examined by myself and Dr. Galvez and this note is written on his behalf (Stefanie Gray) Physician Comments Patient seen and examined Agree with above Continue with current supportive care Monitor labs Obviously his next Remicade injection will be 2 weeks from the first 1 then 6 weeks from the second 1 then every 8 weeks At some point will give a trial of NG tube clamping to see how well he tolerates May consider Gastrografin small bowel follow-through versus colonoscopy with the intention to dilate if a stricture is still an issue Further recommendations she will depend on his hospital course (Tino Carlson MD) Stefanie Gray Jun 18, 2017 13:49 Tino Carlson MD Jun 18, 2017 23:15
[2017-06-18 16:00] VITALS: BP 147/90; PULSE 71; RESP 19; TEMP 97.9; O2SAT 100
[2017-06-18 20:00] VITALS: BP 141/94; PULSE 87; RESP 17; TEMP 98; O2SAT 98
[2017-06-18] MEDS: FAT EMULSION 20% INJ 250 ML (@10 mls/hr) IV-CENTRAL SCH (20:10)
[2017-06-19] VITALS: BP 147/88; PULSE 77; RESP 17; TEMP 98.5; O2SAT 95
[2017-06-19] MEDS: metroNIDAZOLE 500 MG INJ 100 ML IV SCH ×5 (00:21→22:52)
[2017-06-19] MEDS: methylPREDNISolone SOD SUCC 40 MG/1 ML VIAL IV PUSH SCH ×5 (00:24→22:51)
[2017-06-19] MEDS: MORPHINE SULFATE 4 MG/ML INJ IV PUSH PRN ×7 (00:24→22:51)
[2017-06-19] MEDS: CIPROFLOXACIN 400 MG PREMIX 200 ML IV SCH ×2 (03:21→14:48)
[2017-06-19 04:00] VITALS: BP 157/87; PULSE 58; RESP 17; TEMP 97.7; O2SAT 97
[2017-06-19] MEDS: NS + KCL 20 MEQ INJ 1,000 ML IV SCH ×3 (05:16→18:37)
[2017-06-19 06:32] LABS: AUTOMATED NEUTROPHIL # 13.2 TH/MM3 (1.8-7.7); BASOPHIL % 0.1 % (0.0-2.0); HEMATOCRIT 41.1 % (39.0-51.0); HEMOGLOBIN 13.8 GM/DL (13.0-17.0); LYMPH % 9.4 % (9.0-44.0); LYMPHOCYTE # 1.6 TH/MM3 (1.0-4.8); MEAN CORPUSCULAR HEMOGLOBIN 30.5 PG (27.0-34.0); MEAN CORPUSCULAR HGB CONC 33.5 % (32.0-36.0); MEAN PLATELET VOLUME 7.4 FL (7.0-11.0); MONO % 10.9 % (0.0-8.0); MONOCYTE # 1.8 TH/MM3 (0-0.9); NEUT % 79.6 % (16.0-70.0); PLATELET COUNT 441 TH/MM3 (150-450); RED BLOOD COUNT 4.51 MIL/MM3 (4.50-5.90); RED CELL DISTRIBUTION WIDTH 14.1 % (11.6-17.2); WHITE BLOOD COUNT 16.6 TH/MM3 (4.0-11.0)
[2017-06-19] MEDS ORDERED: DIATRIZOATE MEGLUM/DIATRIZOATE SOD 9 ML CUP PO ONE (07:00)
[2017-06-19 07:10] LABS: BICARBONATE 28.8 MEQ/L (21.0-32.0); CALCIUM 8.9 MG/DL (8.5-10.1); CREATININE 0.56 MG/DL (0.60-1.30); MAGNESIUM 2.2 MG/DL (1.5-2.5)
[2017-06-19 08:00] VITALS: BP 123/73; PULSE 73; RESP 18; TEMP 98; O2SAT 95
[2017-06-19] MEDS: SODIUM CHLORIDE 0.9% FLUSH 10 ML FLUSH IV FLUSH SCH ×3 (09:00→21:00)
[2017-06-19] MEDS: DOCUSATE SODIUM 50 MG/SENNA 8.6 MG TAB PO SCH ×2 (09:00→21:00)
[2017-06-19] MEDS: MULTIVITAMIN IV-CENTRAL SCH ×6 (09:10→18:33)
[2017-06-19] MEDS: AMINO ACID IV-CENTRAL SCH ×6 (09:10→18:33)
[2017-06-19] MEDS: FOLIC ACID IV-CENTRAL SCH ×6 (09:10→18:33)
[2017-06-19] MEDS: [UNRECOGNIZED DRUG - OTHER] IV-CENTRAL SCH ×6 (09:10→18:33)
[2017-06-19] MEDS: ONDANSETRON HCL 4 MG/2 ML VIAL IVP PRN ×2 (09:16→21:21)
[2017-06-19 10:12] LABS: HEP B DNA R1 LESS THAN 10 IU/ml (Not Detected); HEP B DNA R2 LESS THAN 1.00 LogIU/mL (Not Detected)
--- NOTE | 2017-06-19 11:57 | HHI.PR ---
Subjective Remarks Pt still without any flatus Abdomen still feels full per the pt He feels gas moving within the abdomen Afebrile Pt with about 1550cc of output from the NGT over night Objective Vitals Vital Signs Date Time Temp Pulse Resp B/P (MAP) Pulse Ox O2 Delivery O2 Flow Rate FiO2 06/19/17 08:00 98.0 73 18 123/73 (90) 95 06/19/17 04:00 97.7 58 17 157/87 (110) 97 06/19/17 00:00 98.5 77 17 147/88 (107) 95 06/18/17 20:00 98.0 87 17 141/94 (110) 98 06/18/17 16:00 97.9 71 19 147/90 (109) 100 06/18/17 12:00 98.2 71 19 148/94 (112) 98 Result Diagram: 06/19/17 0545 06/19/17 0545 Other Results Laboratory Tests Test 06/18/17 06:00 06/19/17 05:45 White Blood Count 17.8 TH/MM3 16.6 TH/MM3 Red Blood Count 4.55 MIL/MM3 4.51 MIL/MM3 Hemoglobin 14.1 GM/DL 13.8 GM/DL Hematocrit 41.9 % 41.1 % Mean Corpuscular Volume 92.1 FL 91.0 FL Mean Corpuscular Hemoglobin 31.0 PG 30.5 PG Mean Corpuscular Hemoglobin Concent 33.7 % 33.5 % Red Cell Distribution Width 13.6 % 14.1 % Platelet Count 373 TH/MM3 441 TH/MM3 Mean Platelet Volume 7.9 FL 7.4 FL Neutrophils (%) (Auto) 77.7 % 79.6 % Lymphocytes (%) (Auto) 10.7 % 9.4 % Monocytes (%) (Auto) 11.4 % 10.9 % Eosinophils (%) (Auto) 0.0 % 0.0 % Basophils (%) (Auto) 0.2 % 0.1 % Neutrophils # (Auto) 13.8 TH/MM3 13.2 TH/MM3 Lymphocytes # (Auto) 1.9 TH/MM3 1.6 TH/MM3 Monocytes # (Auto) 2.0 TH/MM3 1.8 TH/MM3 Eosinophils # (Auto) 0.0 TH/MM3 0.0 TH/MM3 Basophils # (Auto) 0.0 TH/MM3 0.0 TH/MM3 CBC Comment DIFF FINAL DIFF FINAL Differential Comment Blood Urea Nitrogen 13 MG/DL 12 MG/DL Creatinine 0.62 MG/DL 0.56 MG/DL Random Glucose 211 MG/DL 352 MG/DL Calcium Level 9.0 MG/DL 8.9 MG/DL Sodium Level 141 MEQ/L 138 MEQ/L Potassium Level 3.6 MEQ/L 4.3 MEQ/L Chloride Level 100 MEQ/L 101 MEQ/L Carbon Dioxide Level 32.7 MEQ/L 28.8 MEQ/L Anion Gap 8 MEQ/L 8 MEQ/L Estimat Glomerular Filtration Rate 148 ML/MIN 166 ML/MIN Magnesium Level 2.2 MG/DL Imaging Last Impressions Abdomen/Pelvis CT 06/19/17 0800 Signed Impressions: Service Date/Time: Monday, June 19, 2017 11:52 - CONCLUSION: 1. Extensive wall thickening of the terminal ileum consistent with patient's known Crohn's disease. No pericolonic fluid collections or abscess. No significant inflammatory changes. 2. No bowel obstruction. Paolo Monroy MD Abdomen X-Ray 06/14/17 0000 Signed Impressions: Service Date/Time: Wednesday, June 14, 2017 11:13 - CONCLUSION: Negative abdomen. Jovi Kennedy MD FACR Last 72 hours Impressions Abdomen/Pelvis CT 06/11/176 Signed Impressions: Service Date/Time: Sunday, June 11, 2017 23:22 - CONCLUSION: Severe acute/active Crohn's at and just upstream of the ileocolic anastomosis and causing bowel obstruction. No abscess or perforation. Felix Coe MD Objective Remarks GENERAL: This is a thin 37 year old male patient with NG tube CARDIO: Regular RESP: CTA bilaterally. ABD: +BS, soft, minimal RLQ tenderness, nondistended. EXT: Extremities without clubbing, cyanosis, or edema. A/P Problem List: (1) Small bowel obstruction ICD Codes: K56.609 - Unspecified intestinal obstruction, unspecified as to partial versus complete obstruction Status: Acute Plan: - Pt is a 37 y/o male with long history of Crohn's disease s/p previous ileocolonic resection and primary anastomosis with recurrent ulceration causing small bowel obstruction. - General surgery service has evaluated the patient and patient was transferred to main hospital for possible surgical intervention. - Pt is NPO with NG tube in place and was started on TPN. - Appreciate GS evaluation and at this time no surgical intervention is planned. - Pain medication PRN - Pt is on IV Solu-Medrol 40mg Q6H - Pt started on IV Flagyl and Cipro - Appreciate GI consultation. - Pt started on Remicade on 06/14/17. GI recommending that pt may need repeat Remicade at 2 and 6 weeks - NGT clamped on 06/14 but pt did not tolerate trial of clear liquids. He is back to LIWS - Pt with decreased flatus on 06/16 and some increased abdominal cramping - Encourage ambulation - Spoke with Dr. Sawant on 06/18, he would prefer to have an evaluation with CT Abd/pelvis with po contrast on Monday as opposed to SBFT - CT Abd/pelvis --> Extensive wall thickening of the terminal ileum consistent with patient's known Crohn's disease. No pericolonic fluid collections or abscess. No significant inflammatory changes. No bowel obstruction - Monitor NGT output - Pt started back on some IVF on 06/17 - Cont. supportive care (2) Acute Crohn's disease with complication ICD Codes: K50.919 - Crohn's disease, unspecified, with unspecified complications Status: Acute Plan: as above. Assessment and Plan Patient examined. Assessment and plan formulated with Alexa Ramos PA-C. I agree with the above. Case d/w General Surgery, Dr. Sawant (06/19/17) - will try to clamp NGT to see if pt is able to tolerate. Alexa Ramos Jun 19, 2017 11:57 Juan Alberto Craig DO Jun 20, 2017 11:28
[2017-06-19 12:00] VITALS: BP 135/78; PULSE 68; RESP 18; TEMP 97.4; O2SAT 98
--- NOTE | 2017-06-19 12:11 | RADRPT ---
EXAM DATE/TIME: 06/19/2017 11:52 [facility] COMPARISON: CT ABDOMEN & PELVIS W CONTRAST, June 11, 2017, 23:22. INDICATIONS : Abdominal pain ORAL CONTRAST: Prescribed oral contrast ingested. RADIATION DOSE: 4.93 CTDIvol (mGy) MEDICAL HISTORY : Crohn's disease. SURGICAL HISTORY : Appendectomy. bowel resection ENCOUNTER: Initial ACUITY: 2 days PAIN SCALE: 7/10 LOCATION: diffuse abdomen TECHNIQUE: Volumetric scanning of the abdomen and pelvis was performed. Using automated exposure control and ad justment of the mA and/or kV according to patient size, radiation dose was kept as low as reasonably achievable to obtain optimal diagnostic quality images. DICOM format image data is available electro nically for review and comparison. FINDINGS: LOWER LUNGS: The visualized lower lungs are clear. LIVER: Homogeneous density without lesion. There is no dilation of the biliary tree. No calcified gallston es. SPLEEN: Normal size without lesion. PANCREAS: Within normal limits. KIDNEYS: Normal in size and shape. There is no mass, stone, or hydronephrosis. ADRENAL GLANDS: Within normal limits. VASCULAR: There is no aortic aneurysm. BOWEL/MESENTERY: Extensive wall thickening terminal ileum. Nasogastric tube tip in stomach. There is no free intraperi toneal air or fluid. ABDOMINAL WALL: Within normal limits. RETROPERITONEUM: There is no lymphadenopathy. BLADDER: No wall thickening or mass. REPRODUCTIVE: Within normal limits. INGUINAL: There is no lymphadenopathy or hernia. MUSCULOSKELETAL: Within normal limits for patient age. CONCLUSION: 1. Extensive wall thickening of the terminal ileum consistent with patient's known Crohn's disease. N o pericolonic fluid collections or abscess. No significant inflammatory changes. 2. No bowel obstruction. Paolo Monroy MD on June 19, 2017 at 12:05 Board Certified Radiologist. This report was verified electronically.
--- NOTE | 2017-06-19 14:12 | HHI.GIFU ---
Subjective Remarks Resting in bed Mild to moderate anxiety, still no bowel movement NGT clamped, dark bilious fluid noted Afebrile (Alanna Freitas) Objective Vitals I&O Vital Signs Date Time Temp Pulse Resp B/P (MAP) Pulse Ox O2 Delivery O2 Flow Rate FiO2 06/19/17 12:00 97.4 68 18 135/78 (97) 98 06/19/17 08:00 98.0 73 18 123/73 (90) 95 06/19/17 04:00 97.7 58 17 157/87 (110) 97 06/19/17 00:00 98.5 77 17 147/88 (107) 95 06/18/17 20:00 98.0 87 17 141/94 (110) 98 06/18/17 16:00 97.9 71 19 147/90 (109) 100 I/O 06/18/17 06/18/17 06/18/17 06/19/17 06/19/17 06/19/17 06:59 14:59 22:59 06:59 14:59 22:59 Intake Total 540 ml 2235 ml 100 ml Output Total 900 ml 2350 ml 100 ml Balance -360 ml -115 ml -100 ml 100 ml Intake Oral 240 ml 0 ml IV Total 300 ml 2235 ml 100 ml Output Urine Total 600 ml 900 ml Gastric Drainage Total 300 ml 1450 ml 100 ml # Bowel Movements 0 Laboratory Laboratory Tests Test 06/19/17 05:45 White Blood Count 16.6 Red Blood Count 4.51 Hemoglobin 13.8 Hematocrit 41.1 Mean Corpuscular Volume 91.0 Mean Corpuscular Hemoglobin 30.5 Mean Corpuscular Hemoglobin Concent 33.5 Red Cell Distribution Width 14.1 Platelet Count 441 Mean Platelet Volume 7.4 Neutrophils (%) (Auto) 79.6 Lymphocytes (%) (Auto) 9.4 Monocytes (%) (Auto) 10.9 Eosinophils (%) (Auto) 0.0 Basophils (%) (Auto) 0.1 Neutrophils # (Auto) 13.2 Lymphocytes # (Auto) 1.6 Monocytes # (Auto) 1.8 Eosinophils # (Auto) 0.0 Basophils # (Auto) 0.0 CBC Comment DIFF FINAL Differential Comment Blood Urea Nitrogen 12 Creatinine 0.56 Random Glucose 352 Calcium Level 8.9 Magnesium Level 2.2 Sodium Level 138 Potassium Level 4.3 Chloride Level 101 Carbon Dioxide Level 28.8 Anion Gap 8 Estimat Glomerular Filtration Rate 166 Imaging Last Impressions Abdomen/Pelvis CT 06/19/17 0800 Signed Impressions: Service Date/Time: Monday, June 19, 2017 11:52 - CONCLUSION: 1. Extensive wall thickening of the terminal ileum consistent with patient's known Crohn's disease. No pericolonic fluid collections or abscess. No significant inflammatory changes. 2. No bowel obstruction. Paolo Monroy MD Abdomen X-Ray 06/14/17 0000 Signed Impressions: Service Date/Time: Wednesday, June 14, 2017 11:13 - CONCLUSION: Negative abdomen. Jovi Kennedy MD FACR Physical Exam HEENT: Normocephalic; atraumatic, facial: Slightly pale CHEST: Even/unlabored no obvious shortness of breath CARDIAC: RRR ABDOMEN: taut, mild distended, mild diffuse tenderness, bowel sounds active. NGT EXTREMITIES: No clubbing, cyanosis, or edema. SKIN: Normal; no rash; no jaundice. PROFESSOR OF PHYSICS: No focal deficits; alert and oriented times three. (Alanna Freitas) Assessment and Plan Plan ASSESSMENT - Crohns disease with bowel obstruction- not on treatment due to lack of insurance Currently admitted with N/V/abdominal pain. CT abdomen and pelvis W IV contrast (06/11) --> Severe acute/active Crohn's at and just upstream of the ileocolic anastomosis and causing bowel obstruction. No abscess or perforation. Colonoscopy (01/13/17) --> Small ulcers consistent with Crohn disease, advanced ecchymosis and a small bowel side of the anastomosis. Pathology (right colon) colonic mucosa with focal budding and branching of crypts, suggestive of chronic IBD. There is focal acute inflammation of surface epithelium but no inflammation in crypt epithelium. Dysplasia not identified (ileum) focal acute inflammation of crypt epithelium with acute ulceration and deep chronic inflammation, suggestive of IBD. Areas are indeterminate for dysplasia but are probably reactive due to inflammation. Was placed on Mesalamine at that time. GS currently following- recommends medical management Pt currently on PPN. NGT to LIWS- was clamped yesterday with trial of clear liquids, however pt did not tolerate this so currently NPO. Received Remicade on 06/14. TB negative. ESR-10 CRP- 2.36 (06/17) --> No significant changes over night. Still with NGT to LIWS. Continued abdominal pain. No BM, has not passed gas since Monday. (06/18) Still with no flatus or BM. NGT to LIWS with 700 mL of output in suction canister. Surgery following, SBFT cancelled for tomorrow by Dr. Sawant. He has ordered CT to reevaluate the possibility for abscess, states possible need for surgical intervention in the next several days if no improvement. CT abdomen and pelvis pending. 06/19/2017, CT scan shows extensive wall thickening of the terminal ileum consistent with patient's known Crohn's disease no fluid collections or abscesses no significant inflammatory changes. No bowel obstruction Abdominal x-ray negative. Patient continues to have no bowel movement, states this is day 7. Continues to get up and ambulate every few hours For activity. NG tube shows dark bilious fluid. Patient is on Remicade, will have his plan of care and treatment regimen evaluated after this hospital stay. Appreciate general surgery input. Celiac panel final result pending, IgA 234 PLAN -N.p.o. - Solumedrol - Cipro - Flagyl -TPN - NGT clamped for now, - Further recommendations based on clinical course This patient has been seen and examined by myself and Dr. Carlson and this note is written on his behalf (Alanna Freitas) Physician Comments Patient seen and examined Agree with above Continue with current supportive care Monitor lab CT obviously is not showing much improvement and at this point the patient seems ever so likely to require surgical resection of the inflamed and strictured area but obviously final decision to be made with general surgery service Patient seen 06/19/17 (Tino Carlson MD) Alanna Freitas Jun 19, 2017 14:12 Tino Carlson MD Jun 20, 2017 00:40
[2017-06-19] MEDS: BISACODYL 10 MG SUPP RECTAL PRN (14:48)
[2017-06-19 16:00] VITALS: BP 143/92; PULSE 92; RESP 17; TEMP 98.1; O2SAT 98
[2017-06-19] MEDS: FAT EMULSION 20% INJ 250 ML (@10 mls/hr) IV-CENTRAL SCH (18:33)
[2017-06-19 20:00] VITALS: BP 147/94; PULSE 75; PULSE 85; RESP 18; TEMP 98.2; O2SAT 97
[2017-06-20] VITALS: BP 137/95; PULSE 71; PULSE 72; RESP 18; TEMP 98.1; O2SAT 97
[2017-06-20] MEDS: NS + KCL 20 MEQ INJ 1,000 ML IV SCH ×2 (01:00→08:16)
[2017-06-20] MEDS: MORPHINE SULFATE 4 MG/ML INJ IV PUSH PRN ×3 (01:49→08:15)
[2017-06-20] MEDS: CIPROFLOXACIN 400 MG PREMIX 200 ML IV SCH ×2 (01:52→15:00)
[2017-06-20 04:00] VITALS: BP 124/77; PULSE 79; RESP 18; O2SAT 98
[2017-06-20] MEDS: methylPREDNISolone SOD SUCC 40 MG/1 ML VIAL IV PUSH SCH ×3 (05:17→18:34)
[2017-06-20] MEDS: AMINO ACID IV-CENTRAL SCH ×6 (05:18→18:43)
[2017-06-20] MEDS: [UNRECOGNIZED DRUG - OTHER] IV-CENTRAL SCH ×6 (05:18→18:43)
[2017-06-20] MEDS: MULTIVITAMIN IV-CENTRAL SCH ×6 (05:18→18:43)
[2017-06-20] MEDS: FOLIC ACID IV-CENTRAL SCH ×6 (05:18→18:43)
[2017-06-20] MEDS: metroNIDAZOLE 500 MG INJ 100 ML IV SCH ×3 (05:19→18:31)
[2017-06-20 06:38] LABS: AUTOMATED NEUTROPHIL # 14.1 TH/MM3 (1.8-7.7); BASOPHIL % 0.2 % (0.0-2.0); HEMATOCRIT 36.5 % (39.0-51.0); HEMOGLOBIN 12.2 GM/DL (13.0-17.0); LYMPH % 5.1 % (9.0-44.0); LYMPHOCYTE # 0.8 TH/MM3 (1.0-4.8); MEAN CELL VOLUME 91.6 FL (80.0-100.0); MEAN CORPUSCULAR HEMOGLOBIN 30.7 PG (27.0-34.0); MEAN CORPUSCULAR HGB CONC 33.5 % (32.0-36.0); MEAN PLATELET VOLUME 7.6 FL (7.0-11.0); MONOCYTE # 1.5 TH/MM3 (0-0.9); NEUT % 85.7 % (16.0-70.0); PLATELET COUNT 365 TH/MM3 (150-450); RED BLOOD COUNT 3.99 MIL/MM3 (4.50-5.90); RED CELL DISTRIBUTION WIDTH 13.6 % (11.6-17.2); WHITE BLOOD COUNT 16.4 TH/MM3 (4.0-11.0)
[2017-06-20 06:54] LABS: BICARBONATE 28.1 MEQ/L (21.0-32.0); CALCIUM 8.3 MG/DL (8.5-10.1); CREATININE 0.41 MG/DL (0.60-1.30)
[2017-06-20 08:00] VITALS: BP 137/87; PULSE 75; RESP 19; TEMP 97.7; O2SAT 98
[2017-06-20] MEDS: SODIUM CHLORIDE 0.9% FLUSH 10 ML FLUSH IV FLUSH SCH ×3 (08:15→21:00)
[2017-06-20] MEDS: BISACODYL 10 MG SUPP RECTAL PRN (08:15)
[2017-06-20] MEDS: DOCUSATE SODIUM 50 MG/SENNA 8.6 MG TAB PO SCH ×2 (08:16→21:11)
--- NOTE | 2017-06-20 09:19 | RADRPT ---
EXAM DATE/TIME: 06/20/2017 08:54 [facility] COMPARISON: ABDOMEN FLAT & UPRIGHT, June 14, 2017, 11:13. INDICATIONS : Obstruction. Patient complains of abdomen pain. Patient states no bowel movement in 11 days. MEDICAL HISTORY : Crohn's disease. SURGICAL HISTORY : Appendectomy. Ostomy, 10 ft of lower bowel resection. ENCOUNTER: Subsequent ACUITY: 1 week PAIN SCORE: 3/10 LOCATION: Bilateral Abdomen. FINDINGS: Supine and upright views of the abdomen. Nasogastric tube is in place with the tip in the distal stom ach. Scattered gas and contrast in the colon. Colon measures up to 6 cm in diameter. Multiple air flu id levels in the colon on the upright view. No evidence of free air. Osseous structures within normal limits. No abnormal abdominal calcification identified. Surgical dave are seen in the right lower quadrant. CONCLUSION: Contrast and gas seen throughout the nondilated colon. Bigg Coello MD on June 20, 2017 at 9:13 Board Certified Radiologist. This report was verified electronically.
--- NOTE | 2017-06-20 11:38 | HHI.PR ---
Subjective Remarks Pt denies flatus today. Pt c/o continued abdominal pain and c/o pain reoccurring prior to 3h. morphine scheduled for q3h. Pt's NGT clamped yesterday with trial of clears. Pt became nauseated with increased abdominal pain and NGT was resumed to LIWS. Pt's NGT has been clamped since 9AM, so far pt is tolerating this. Pt does NOT want to try clear again d/t increased symptoms yesterday with clears. NGT to suction with 950ml drainage overnight. Objective Vitals Vital Signs Date Time Temp Pulse Resp B/P (MAP) Pulse Ox O2 Delivery O2 Flow Rate FiO2 06/20/17 04:00 79 18 124/77 (93) 98 06/20/17 00:00 71 06/20/17 00:00 98.1 72 18 137/95 (109) 97 06/19/17 20:00 85 06/19/17 20:00 98.2 75 18 147/94 (111) 97 06/19/17 16:00 98.1 92 17 143/92 (109) 98 06/19/17 12:00 97.4 68 18 135/78 (97) 98 Result Diagram: 06/20/17 0520 06/20/17 0520 Imaging Last Impressions Abdomen X-Ray 06/20/17 08 Signed Impressions: Service Date/Time: Tuesday, June 20, 2017 08:54 - CONCLUSION: Contrast and gas seen throughout the nondilated colon. Bigg Coello MD Abdomen/Pelvis CT 06/19/17 0800 Signed Impressions: Service Date/Time: Monday, June 19, 2017 11:52 - CONCLUSION: 1. Extensive wall thickening of the terminal ileum consistent with patient's known Crohn's disease. No pericolonic fluid collections or abscess. No significant inflammatory changes. 2. No bowel obstruction. Paolo Monroy MD Objective Remarks GENERAL: This is a thin 37 year old male patient with NG tube CARDIO: Regular RESP: CTA bilaterally. ABD: +BS, soft, minimal RLQ tenderness, nondistended. EXT: Extremities without clubbing, cyanosis, or edema. A/P Problem List: (1) Small bowel obstruction ICD Codes: K56.609 - Unspecified intestinal obstruction, unspecified as to partial versus complete obstruction Status: Acute Plan: - comgmt with General Surgery and GI - Pt is a 37 y/o male with long history of Crohn's disease s/p previous ileocolonic resection and primary anastomosis with recurrent ulceration causing small bowel obstruction. - TPN - areas of severe inflammation on CT. No relistor at this time. - CT A/P (06/19) - Extensive wall thickening of the terminal ileum consistent with patient's known Crohn's - No pericolonic fluid collections or abscess. No significant inflammatory - KUB (06/19) - contrast and gas seen throughout non-dilated colon - Pt is on IV Solu-Medrol 40mg Q6H (06/13 - present) - IV Flagyl (06/13 - present) - IV Cipro (06/13 - ) - Pt started on Remicade on 06/14/17. GI recommending that pt may need repeat Remicade at 2 and 6 weeks - NGT clamped on 06/19 with trial of clears. NGT resumed to LIWS d/t increased abd pain and nausea - NGT for last several hours today (06/20) - No flatus (06/20) - IV morphine changed to IV Dilaudid (06/20) - Encourage ambulation - Case d/w with Dr. Sawant on 06/20, he will reevaluate this afternoon - Case d/w GI, Dr. Carlson (06/20) - DVT prophylaxis - Cont. supportive care (2) Acute Crohn's disease with complication ICD Codes: K50.919 - Crohn's disease, unspecified, with unspecified complications Status: Acute Plan: as above. Juan Alberto Craig DO Jun 20, 2017 11:38
[2017-06-20 12:00] VITALS: BP 145/96; PULSE 85; RESP 19; TEMP 98; O2SAT 96
[2017-06-20] MEDS: HYDROmorphone HCL PF 2 MG/ML VIAL IV PUSH PRN ×3 (12:22→21:05)
--- NOTE | 2017-06-20 14:19 | HHI.GIFU ---
Subjective Remarks Resting in the bed Smiling appears to be feeling better today NGT is clamped, dark bilious fluid noted in tube Patient was able to take double amount of p.o. fluids today without minimal cramping or pain No BM as of yet, Dulcolax suppository given on 06/19 and 06/20 without results (Alanna Freitas) Objective Vitals I&O Vital Signs Date Time Temp Pulse Resp B/P (MAP) Pulse Ox O2 Delivery O2 Flow Rate FiO2 06/20/17 12:00 98.0 85 19 145/96 (112) 96 06/20/17 08:00 97.7 75 19 137/87 (104) 98 06/20/17 04:00 79 18 124/77 (93) 98 06/20/17 00:00 71 06/20/17 00:00 98.1 72 18 137/95 (109) 97 06/19/17 20:00 85 06/19/17 20:00 98.2 75 18 147/94 (111) 97 06/19/17 16:00 98.1 92 17 143/92 (109) 98 I/O 06/19/17 06/19/17 06/19/17 06/20/17 06/20/17 06/20/17 06:59 14:59 22:59 06:59 14:59 22:59 Intake Total 100 ml 3257 ml Output Total 100 ml 550 ml 900 ml 2450 ml Balance -100 ml -450 ml 2357 ml -2450 ml Intake Oral 280 ml IV Total 100 ml 2417 ml Tube Irrigant 560 ml Output Urine Total 550 ml 800 ml 1500 ml Gastric Drainage Total 100 ml 100 ml 950 ml # Bowel Movements 0 Laboratory Laboratory Tests Test 06/20/17 05:20 White Blood Count 16.4 Red Blood Count 3.99 Hemoglobin 12.2 Hematocrit 36.5 Mean Corpuscular Volume 91.6 Mean Corpuscular Hemoglobin 30.7 Mean Corpuscular Hemoglobin Concent 33.5 Red Cell Distribution Width 13.6 Platelet Count 365 Mean Platelet Volume 7.6 Neutrophils (%) (Auto) 85.7 Lymphocytes (%) (Auto) 5.1 Monocytes (%) (Auto) 9.0 Eosinophils (%) (Auto) 0.0 Basophils (%) (Auto) 0.2 Neutrophils # (Auto) 14.1 Lymphocytes # (Auto) 0.8 Monocytes # (Auto) 1.5 Eosinophils # (Auto) 0.0 Basophils # (Auto) 0.0 CBC Comment DIFF FINAL Differential Comment Blood Urea Nitrogen 11 Creatinine 0.41 Random Glucose 114 Calcium Level 8.3 Sodium Level 142 Potassium Level 3.8 Chloride Level 107 Carbon Dioxide Level 28.1 Anion Gap 7 Estimat Glomerular Filtration Rate 238 Imaging Last Impressions Abdomen X-Ray 06/20/17799 Signed Impressions: Service Date/Time: Tuesday, June 20, 2017 08:54 - CONCLUSION: Contrast and gas seen throughout the nondilated colon. Bigg Coello MD Abdomen/Pelvis CT 06/19/17799 Signed Impressions: Service Date/Time: Monday, June 19, 2017 11:52 - CONCLUSION: 1. Extensive wall thickening of the terminal ileum consistent with patient's known Crohn's disease. No pericolonic fluid collections or abscess. No significant inflammatory changes. 2. No bowel obstruction. Paolo Monroy MD Physical Exam HEENT: Normocephalic; atraumatic, smiling, no facial grimace, oral cavity clean CHEST: Even/unlabored no obvious shortness of breath CARDIAC: RRR ABDOMEN: Flat, taut, mild distended, minimal cramping lower abdomen today, bowel sounds active especially in the lower quadrants. NGT clamped EXTREMITIES: No clubbing, cyanosis, or edema. SKIN: Normal; no rash; no jaundice. 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 (Alanna Freitas) Assessment and Plan Plan ASSESSMENT - Crohns disease with bowel obstruction- not on treatment due to lack of insurance Currently admitted with N/V/abdominal pain. CT abdomen and pelvis W IV contrast (06/11) --> Severe acute/active Crohn's at and just upstream of the ileocolic anastomosis and causing bowel obstruction. No abscess or perforation. Colonoscopy (01/13/17) --> Small ulcers consistent with Crohn disease, advanced ecchymosis and a small bowel side of the anastomosis. Pathology (right colon) colonic mucosa with focal budding and branching of crypts, suggestive of chronic IBD. There is focal acute inflammation of surface epithelium but no inflammation in crypt epithelium. Dysplasia not identified (ileum) focal acute inflammation of crypt epithelium with acute ulceration and deep chronic inflammation, suggestive of IBD. Areas are indeterminate for dysplasia but are probably reactive due to inflammation. Was placed on Mesalamine at that time. GS currently following- recommends medical management Pt currently on PPN. NGT to LIWS- was clamped yesterday with trial of clear liquids, however pt did not tolerate this so currently NPO. Received Remicade on 06/14. TB negative. ESR-10 CRP- 2.36 (06/17) --> No significant changes over night. Still with NGT to LIWS. Continued abdominal pain. No BM, has not passed gas since Monday. (06/18) Still with no flatus or BM. NGT to LIWS with 700 mL of output in suction canister. Surgery following, SBFT cancelled for tomorrow by Dr. Sawant. He has ordered CT to reevaluate the possibility for abscess, states possible need for surgical intervention in the next several days if no improvement. CT abdomen and pelvis pending. 06/19/2017, CT scan shows extensive wall thickening of the terminal ileum consistent with patient's known Crohn's disease no fluid collections or abscesses no significant inflammatory changes. No bowel obstruction Abdominal x-ray negative. Patient continues to have no bowel movement, states this is day 7. Continues to get up and ambulate every few hours For activity. NG tube shows dark bilious fluid. Patient is on Remicade, will have his plan of care and treatment regimen evaluated after this hospital stay. Appreciate general surgery input. Celiac panel final result pending, IgA 234 06/20/2017, patient became mildly distended and uncomfortable last p.m. after x- ray was done. Unclamped with approximately 800 cc return according to nurse. Currently NGT is been clamped all day and patient states that he was able to take double the p.o. fluids today and had minimal cramping or distention.: X- ray shows nondilated colon. Patient has had daily Dulcolax suppositories on 423 and 424 without results but feels like he has an occasional urge to defecate which passes. Currently patient is passing no gas. Appreciate general surgery input PLAN -Diet clear liquids as tolerated -Daily Dulcolax suppositories until patient's normal BM regimen starts again - Solumedrol - Cipro - Flagyl -TPN until patient is unable to tolerate full liquids adequate amounts, - NGT clamped for now, connected to low intermittent suction as needed based on patient's symptoms - Further recommendations based on clinical course This patient has been seen and examined by myself and Dr. Carlson and this note is written on his behalf (Alanna Freitas) Physician Comments Patient seen and examined Agree with above Continue with current supportive care Monitor lab At this point in time it seems that improvement with purely medical treatment may not be totally realistic Await surgical opinion In the meanwhile continue with current treatment (Tino Carlson MD) Alanna Freitas Jun 20, 2017 14:18 Tino Carlson MD Jun 20, 2017 20:24
[2017-06-20 16:00] VITALS: BP 152/88; PULSE 93; RESP 19; TEMP 97.6; O2SAT 97
[2017-06-20] MEDS: FAT EMULSION 20% INJ 250 ML (@10 mls/hr) IV-CENTRAL SCH (18:39)
[2017-06-20 20:00] VITALS: BP 149/99; PULSE 69; RESP 18; TEMP 97.9; O2SAT 99
[2017-06-20] MEDS: ONDANSETRON HCL 4 MG/2 ML VIAL IVP PRN (21:05)
[2017-06-20] MEDS: ALVIMOPAN 12 MG CAPSULE PO SCH (21:11)
[2017-06-21] VITALS: BP 141/87; PULSE 77; RESP 18; TEMP 98; O2SAT 98
[2017-06-21] MEDS: HYDROmorphone HCL PF 2 MG/ML VIAL IV PUSH PRN ×6 (01:08→22:15)
[2017-06-21] MEDS: methylPREDNISolone SOD SUCC 40 MG/1 ML VIAL IV PUSH SCH ×4 (01:09→17:36)
[2017-06-21] MEDS: metroNIDAZOLE 500 MG INJ 100 ML IV SCH ×4 (01:09→17:38)
[2017-06-21] MEDS: CIPROFLOXACIN 400 MG PREMIX 200 ML IV SCH ×2 (03:28→13:41)
[2017-06-21 04:00] VITALS: BP 153/91; PULSE 64; RESP 18; TEMP 97.3; O2SAT 98
[2017-06-21] MEDS: AMINO ACID IV-CENTRAL SCH ×6 (05:47→22:16)
[2017-06-21] MEDS: [UNRECOGNIZED DRUG - OTHER] IV-CENTRAL SCH ×6 (05:47→22:16)
[2017-06-21] MEDS: MULTIVITAMIN IV-CENTRAL SCH ×6 (05:47→22:16)
[2017-06-21] MEDS: FOLIC ACID IV-CENTRAL SCH ×6 (05:47→22:16)
[2017-06-21 08:00] VITALS: BP 140/80; PULSE 75; RESP 19; TEMP 97.4; O2SAT 98
[2017-06-21] MEDS: SODIUM CHLORIDE 0.9% FLUSH 10 ML FLUSH IV FLUSH SCH ×3 (09:00→21:00)
--- NOTE | 2017-06-21 09:32 | RADRPT ---
EXAM DATE/TIME: 06/21/2017 08:56 [facility] COMPARISON: ABDOMEN FLAT & UPRIGHT, June 20, 2017, 8:54. INDICATIONS : Abdominal pain. MEDICAL HISTORY : Crohn's disease. SURGICAL HISTORY : Appendectomy. Bowel resection. ENCOUNTER: Subsequent ACUITY: 3 days PAIN SCORE: 3/10 LOCATION: Abdomen. FINDINGS: Supine view of the abdomen was performed. The abdominal bowel gas pattern is normal. No abnormal ma sses, or organomegaly is seen. There is a faint calcification overlying the right lower quadrant stab le since the previous days exam The osseous structures are unremarkable. NG tube in the stomach. CONCLUSION: Normal examination. Pramod Chavez MD on June 21, 2017 at 9:28 Board Certified Radiologist. This report was verified electronically.
[2017-06-21] MEDS: ALVIMOPAN 12 MG CAPSULE PO SCH ×2 (09:38→22:11)
[2017-06-21] MEDS: DOCUSATE SODIUM 50 MG/SENNA 8.6 MG TAB PO SCH ×2 (09:38→22:11)
[2017-06-21] MEDS: BISACODYL 10 MG SUPP RECTAL SCH (09:39)
[2017-06-21] MEDS: ONDANSETRON HCL 4 MG/2 ML VIAL IVP PRN (09:40)
[2017-06-21] MEDS: NS + KCL 20 MEQ INJ 1,000 ML IV SCH (09:40)
[2017-06-21 12:00] VITALS: BP 150/87; PULSE 78; RESP 20; TEMP 97.9; O2SAT 99
--- NOTE | 2017-06-21 13:10 | HHI.PR ---
Subjective Remarks Pt had NGT clamped since yesterday morning. Pt had clear for lunch today and is now requesting that NGT be placed back to suction. Pt requiring Dilaudid q4h. No flatus in several days. Objective Vitals Vital Signs Date Time Temp Pulse Resp B/P (MAP) Pulse Ox O2 Delivery O2 Flow Rate FiO2 06/21/17 12:00 97.9 78 20 150/87 (108) 99 06/21/17 08:00 97.4 75 19 140/80 (100) 98 06/21/17 04:00 97.3 64 18 153/91 (111) 98 06/21/17 00:00 98.0 77 18 141/87 (105) 98 06/20/17 20:00 97.9 69 18 149/99 (116) 99 06/20/17 16:00 97.6 93 19 152/88 (109) 97 06/21/17 06/21/17 06/22/17 15:00 23:00 07:00 Intake Total 0 ml Balance 0 ml Intake Oral 0 ml Result Diagram: 06/20/1751906/20/17519 Imaging Last Impressions Abdomen X-Ray 06/20/17799 Signed Impressions: Service Date/Time: Tuesday, June 20, 2017 08:54 - CONCLUSION: Contrast and gas seen throughout the nondilated colon. Bigg Coello MD Abdomen/Pelvis CT 06/19/17799 Signed Impressions: Service Date/Time: Monday, June 19, 2017 11:52 - CONCLUSION: 1. Extensive wall thickening of the terminal ileum consistent with patient's known Crohn's disease. No pericolonic fluid collections or abscess. No significant inflammatory changes. 2. No bowel obstruction. Paolo Monroy MD Objective Remarks GENERAL: This is a thin 37 year old male patient with NG tube CARDIO: Regular RESP: CTA bilaterally. ABD: +BS, soft, nondistended, tender on palpation at RUQ and RLQ EXT: Extremities without clubbing, cyanosis, or edema. A/P Problem List: (1) Small bowel obstruction ICD Codes: K56.609 - Unspecified intestinal obstruction, unspecified as to partial versus complete obstruction Status: Acute Plan: - comgmt with General Surgery and GI - Pt is a 37 y/o male with long history of Crohn's disease s/p previous ileocolonic resection and primary anastomosis with recurrent ulceration causing small bowel obstruction. - TPN - areas of severe inflammation on CT. No relistor at this time. - CT A/P (06/19) - Extensive wall thickening of the terminal ileum consistent with patient's known Crohn's - No pericolonic fluid collections or abscess. No significant inflammatory - KUB (06/19) - contrast and gas seen throughout non-dilated colon - Pt is on IV Solu-Medrol 40mg Q6H (06/13 - present) - IV Flagyl (06/13 - present) - IV Cipro (06/13 - ) - Pt started on Remicade on 06/14/17. GI recommending that pt may need repeat Remicade at 2 and 6 weeks - NGT clamped on 06/19 with trial of clears. NGT resumed to LIWS d/t increased abd pain and nausea - NGT again clamped again (06/20) to (06/21). Increased discomfort following trial of clear. Resume LIWS and reclamp in 2 hours. - No flatus - Dilaudid - Entereg - Encourage ambulation - Case d/w with Dr. Sawant on 06/21. Pt examined and interviewed together with Dr. Sawant at the bedside - Case d/w GI, Dr. Carlson (06/20) - Case discussed between Dr. Sawant and Dr. Carlson (06/21) - obtain Gastrografin small bowel follow through - DVT prophylaxis - Cont. supportive care (2) Acute Crohn's disease with complication ICD Codes: K50.919 - Crohn's disease, unspecified, with unspecified complications Status: Acute Plan: as above. Juan Alberto Craig DO Jun 21, 2017 13:10
--- NOTE | 2017-06-21 14:20 | HHI.GIFU ---
Subjective Remarks Patient's resting in the bed Seems a little quiet today, not feeling as well today as yesterday Still no bowel movement Chief abdominal pain noted on the right lower quadrant Afebrile (Alanna Freitas) Objective Vitals I&O Vital Signs Date Time Temp Pulse Resp B/P (MAP) Pulse Ox O2 Delivery O2 Flow Rate FiO2 06/21/17 12:00 97.9 78 20 150/87 (108) 99 06/21/17 08:00 97.4 75 19 140/80 (100) 98 06/21/17 04:00 97.3 64 18 153/91 (111) 98 06/21/17 00:00 98.0 77 18 141/87 (105) 98 06/20/17 20:00 97.9 69 18 149/99 (116) 99 06/20/17 16:00 97.6 93 19 152/88 (109) 97 I/O 06/20/17 06/20/17 06/20/17 06/21/17 06/21/17 06/21/17 07:00 15:00 23:00 07:00 15:00 23:00 Intake Total 100 ml 2833 ml 240 ml 0 ml Output Total 2450 ml 1150 ml 1750 ml Balance -2450 ml 100 ml 1683 ml -1510 ml 0 ml Intake Oral 480 ml 240 ml 0 ml IV Total 100 ml 2353 ml Output Urine Total 1500 ml 1050 ml 1750 ml Gastric Drainage Total 950 ml 100 ml # Bowel Movements 0 Laboratory Laboratory Tests Test 06/20/17 05:20 White Blood Count 16.4 TH/MM3 Red Blood Count 3.99 MIL/MM3 Hemoglobin 12.2 GM/DL Hematocrit 36.5 % Mean Corpuscular Volume 91.6 FL Mean Corpuscular Hemoglobin 30.7 PG Mean Corpuscular Hemoglobin Concent 33.5 % Red Cell Distribution Width 13.6 % Platelet Count 365 TH/MM3 Mean Platelet Volume 7.6 FL Neutrophils (%) (Auto) 85.7 % Lymphocytes (%) (Auto) 5.1 % Monocytes (%) (Auto) 9.0 % Eosinophils (%) (Auto) 0.0 % Basophils (%) (Auto) 0.2 % Neutrophils # (Auto) 14.1 TH/MM3 Lymphocytes # (Auto) 0.8 TH/MM3 Monocytes # (Auto) 1.5 TH/MM3 Eosinophils # (Auto) 0.0 TH/MM3 Basophils # (Auto) 0.0 TH/MM3 CBC Comment DIFF FINAL Differential Comment Blood Urea Nitrogen 11 MG/DL Creatinine 0.41 MG/DL Random Glucose 114 MG/DL Calcium Level 8.3 MG/DL Sodium Level 142 MEQ/L Potassium Level 3.8 MEQ/L Chloride Level 107 MEQ/L Carbon Dioxide Level 28.1 MEQ/L Anion Gap 7 MEQ/L Estimat Glomerular Filtration Rate 238 ML/MIN Imaging Last Impressions Abdomen X-Ray 06/21/17799 Signed Impressions: Service Date/Time: Wednesday, June 21, 2017 08:56 - CONCLUSION: Normal examination. Pramod Chavez MD Abdomen/Pelvis CT 06/19/17799 Signed Impressions: Service Date/Time: Monday, June 19, 2017 11:52 - CONCLUSION: 1. Extensive wall thickening of the terminal ileum consistent with patient's known Crohn's disease. No pericolonic fluid collections or abscess. No significant inflammatory changes. 2. No bowel obstruction. Paolo Monroy MD Physical Exam HEENT: Normocephalic; atraumatic, speech is clear oral cavity is moist CHEST: Even/unlabored no obvious shortness of breath CARDIAC: RRR ABDOMEN: Flat, taut, mild distended, right lower quadrant lower abdominal dull pain, and worse with light palpation bowel sounds active especially in the lower quadrants. NGT clamped, dark bilious fluid noted in tube. EXTREMITIES: No clubbing, cyanosis, or edema. SKIN: Normal; no rash; no jaundice. 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 Anxiety of her current condition (Alanna Freitas) Assessment and Plan Assessment: (1) Acute Crohn's disease with complication ICD Codes: K50.919 - Crohn's disease, unspecified, with unspecified complications Status: Acute Plan -Assessment/history on admission /Crohns disease with bowel obstruction- not on treatment due to lack of insurance Currently admitted with N/V/abdominal pain. CT abdomen and pelvis W IV contrast (06/11) --> Severe acute/active Crohn's at and just upstream of the ileocolic anastomosis and causing bowel obstruction. No abscess or perforation. Colonoscopy (01/13/17) --> Small ulcers consistent with Crohn disease, advanced ecchymosis and a small bowel side of the anastomosis. Pathology (right colon) colonic mucosa with focal budding and branching of crypts, suggestive of chronic IBD. There is focal acute inflammation of surface epithelium but no inflammation in crypt epithelium. Dysplasia not identified (ileum) focal acute inflammation of crypt epithelium with acute ulceration and deep chronic inflammation, suggestive of IBD. Areas are indeterminate for dysplasia but are probably reactive due to inflammation. Was placed on Mesalamine at that time. GS currently following- recommends medical management Pt currently on TPN. NGT to LIWS- was clamped yesterday with trial of clear liquids, however pt did not tolerate this so currently NPO. Received Remicade on 06/14. TB negative. ESR-10 CRP- 2.36 (06/17) --> No significant changes over night. Still with NGT to LIWS. Continued abdominal pain. No BM, has not passed gas since Monday. (06/18) Still with no flatus or BM. NGT to LIWS with 700 mL of output in suction canister. Surgery following, SBFT cancelled for tomorrow by Dr. Sawant. He has ordered CT to reevaluate the possibility for abscess, states possible need for surgical intervention in the next several days if no improvement. CT abdomen and pelvis pending. 06/19/2017, CT scan shows extensive wall thickening of the terminal ileum consistent with patient's known Crohn's disease no fluid collections or abscesses no significant inflammatory changes. No bowel obstruction Abdominal x-ray negative. Patient continues to have no bowel movement, states this is day 7. Continues to get up and ambulate every few hours For activity. NG tube shows dark bilious fluid. Patient is on Remicade, will have his plan of care and treatment regimen evaluated after this hospital stay. Appreciate general surgery input. Celiac panel final result pending, IgA 234 06/20/2017, patient became mildly distended and uncomfortable last p.m. after x- ray was done. Unclamped with approximately 800 cc return according to nurse. Currently NGT is been clamped all day and patient states that he was able to take double the p.o. fluids today and had minimal cramping or distention.: X- ray shows nondilated colon. Patient has had daily Dulcolax suppositories on 423 and 424 without results but feels like he has an occasional urge to defecate which passes. Currently patient is passing no gas. Appreciate general surgery input 06/21/2017, patient not feeling as good today, but has been able to tolerate NG without clamping for greater than 24 hours. Multiple fleets enema is given with only return of fluid with a brown color according to patient. Patient is pending reevaluation of general surgery and is reconciled to the possibility of surgical needs. Supportive care given. Last hemoglobin checked 12.2. Right lower quadrant is his chief complaint of dull pain worse with light palpation. Plan Maintain NG T clamped unless patient is nausea and vomiting Clear liquid diet Daily Dulcolax suppository Solumedrol, Cipro, Flagyl as ordered TPN Await reevaluation from general surgery Supportive care Patient was seen per myself and Dr. Carlson, note was written on his behalf (Alanna Freitas) Physician Comments Patient seen and examined Agree with above Continue with current supportive care Monitor labs Small bowel follow-through noted to be unremarkable We will discuss the result with the radiology and proceed accordingly (Tino Carlson MD) Alanna Freitas Jun 21, 2017 14:19 Tino Carlson MD Jun 21, 2017 22:40
--- NOTE | 2017-06-21 14:21 | HHI.PR ---
Subjective Subjective Notes The patient felt better yesterday than he does today. He had to have the nasogastric tube open to suction again due to increased pressure although he denied any nausea or emesis. He states that he has not passed any gas or had any bowel movements. He denies any significant abdominal pain at this point except to palpation. Objective Vitals/I&O Vital Signs Date Time Temp Pulse Resp B/P (MAP) Pulse Ox O2 Delivery O2 Flow Rate FiO2 06/21/17 12:00 97.9 78 20 150/87 (108) 99 Radiology Last 24 hours Impressions Abdomen X-Ray 06/21/17 0800 Signed Impressions: Service Date/Time: Wednesday, June 21, 2017 08:56 - CONCLUSION: Normal examination. Pramod Chvaez MD Cardiovascular: Regular Lungs: Clear Abdomen: Non-distended Narrative Exam He has minimal tenderness except to deep palpation in the right lower quadrant. There is no guarding or rebound. A/P Assessment and Plan Impression: Stable from the standpoint of obstruction. He has no evident obstruction at the point of stricture and has a normal bowel gas pattern on today's x-ray. Symptomatically it is somewhat confusing as he has not been able to tolerate liquids and has not passed any flatus, although everything else appears to be relatively normal at this point other than the stricture. Plan: I have discussed the situation with Dr. Craig as well as Dr. Carlson. We will proceed with Gastrografin small bowel follow-through at this point to determine the length of the stricture and the time of passage into the colon as well as hopefully provide some type of catharsis. Jose Sawant MD Jun 21, 2017 14:21
[2017-06-21] MEDS ORDERED: DIATRIZOATE MEGLUM/DIATRIZOATE SOD 120 ML BTL (for RAD DIAG) NG ONE (14:44)
--- NOTE | 2017-06-21 17:30 | RADRPT ---
EXAM DATE/TIME: 06/21/2017 14:46 [facility] COMPARISON: No previous studies available for comparison. INDICATIONS : Ileus with constipation. FLUORO TIME: 0.5 minutes IMAGE COUNT: 9 CONTRAST: Gastroview IMAGING TIME(S): 15 min, 30 min, 45 min, 1 hr1.5 hr, 2 hr. MEDICAL HISTORY : Crohn's disease. SURGICAL HISTORY : Appendectomy. Bowel resection. ENCOUNTER: Subsequent ACUITY: 4 - 6 days PAIN SCORE: 4/10 LOCATION: abdomen. FINDINGS: Preliminary film is unremarkable. The stomach is grossly unremarkable. Examination of the small bowel demonstrates normal mucosal pattern involving the jejunum and ileum. There is no evidence of mass or obstruction. No intraluminal filling defects are identified. Small bowel transit time is normal at 90 minutes. Fluoroscopy of the abdomen with the gastroview is very l imited. CONCLUSION: Unremarkable small bowel examination. Pramod Chavez MD on June 21, 2017 at 17:26 Board Certified Radiologist. This report was verified electronically.
[2017-06-21 20:19] VITALS: BP 153/100; PULSE 64; RESP 17; TEMP 98; O2SAT 99
[2017-06-21] MEDS: FAT EMULSION 20% INJ 250 ML (@10 mls/hr) IV-CENTRAL SCH (22:15)
[2017-06-22] VITALS (7 sets, daily range): BP systolic 136–162; BP diastolic 77–99; PULSE 72–98; RESP 16–21; TEMP 97.6–98.6; O2SAT 97–99
[2017-06-22] MEDS: methylPREDNISolone SOD SUCC 40 MG/1 ML VIAL IV PUSH SCH ×5 (00:29→23:05)
[2017-06-22] MEDS: metroNIDAZOLE 500 MG INJ 100 ML IV SCH ×5 (00:30→23:04)
[2017-06-22] MEDS: HYDROmorphone HCL PF 2 MG/ML VIAL IV PUSH PRN ×5 (02:11→19:54)
[2017-06-22] MEDS: CIPROFLOXACIN 400 MG PREMIX 200 ML IV SCH ×2 (02:14→15:11)
[2017-06-22] MEDS: FOLIC ACID IV-CENTRAL SCH ×6 (06:21→19:52)
[2017-06-22] MEDS: AMINO ACID IV-CENTRAL SCH ×6 (06:21→19:52)
[2017-06-22] MEDS: [UNRECOGNIZED DRUG - OTHER] IV-CENTRAL SCH ×6 (06:21→19:52)
[2017-06-22] MEDS: MULTIVITAMIN IV-CENTRAL SCH ×6 (06:21→19:52)
[2017-06-22] MEDS: ALVIMOPAN 12 MG CAPSULE PO SCH ×2 (09:01→19:53)
[2017-06-22] MEDS: DOCUSATE SODIUM 50 MG/SENNA 8.6 MG TAB PO SCH ×2 (09:01→19:53)
[2017-06-22] MEDS: SODIUM CHLORIDE 0.9% FLUSH 10 ML FLUSH IV FLUSH SCH ×3 (09:01→20:11)
[2017-06-22] MEDS: BISACODYL 10 MG SUPP RECTAL SCH (09:01)
[2017-06-22] MEDS: NS + KCL 20 MEQ INJ 1,000 ML IV SCH ×2 (09:02→20:16)
[2017-06-22] MEDS: ONDANSETRON HCL 4 MG/2 ML VIAL IVP PRN ×3 (10:59→23:05)
--- NOTE | 2017-06-22 13:56 | HHI.GIFU ---
Subjective Remarks Resting in the bed, computer and TV with him Still no bowel movement, taking Dulcolax suppositories daily Afebrile Supportive care NGT clamped for now (Alanna Freitas) Objective Vitals I&O Vital Signs Date Time Temp Pulse Resp B/P (MAP) Pulse Ox O2 Delivery O2 Flow Rate FiO2 06/22/17 08:00 72 06/22/17 08:00 98.1 72 18 136/77 (96) 98 06/22/17 04:00 97.6 73 21 153/99 (117) 97 06/22/17 00:00 97.7 74 21 162/92 (115) 99 06/21/17 20:19 98.0 64 17 153/100 (117) 99 I/O 06/21/17 06/21/17 06/21/17 06/22/17 06/22/17 06/22/17 07:00 15:00 23:00 07:00 15:00 23:00 Intake Total 240 ml 100 ml 690 ml 300 ml Output Total 1750 ml 1125 ml 500 ml Balance -1510 ml 100 ml -435 ml -200 ml Intake Oral 240 ml 0 ml 390 ml IV Total 100 ml 300 ml 300 ml Output Urine Total 1750 ml 125 ml Gastric Drainage Total 1000 ml 500 ml # Bowel Movements 0 0 Imaging Last Impressions Abdomen X-Ray 06/21/17 08 Signed Impressions: Service Date/Time: Wednesday, June 21, 2017 08:56 - CONCLUSION: Normal examination. Pramod Chavez MD Small Bowel X-Ray 06/21/17 0000 Signed Impressions: Service Date/Time: Wednesday, June 21, 2017 14:46 - CONCLUSION: Unremarkable small bowel examination. Pramod Chavez MD Abdomen/Pelvis CT 06/19/17 0800 Signed Impressions: Service Date/Time: Monday, June 19, 2017 11:52 - CONCLUSION: 1. Extensive wall thickening of the terminal ileum consistent with patient's known Crohn's disease. No pericolonic fluid collections or abscess. No significant inflammatory changes. 2. No bowel obstruction. Paolo Monroy MD Physical Exam HEENT: Normocephalic; atraumatic, slim build, No swallow issues. CHEST: Even/unlabored no obvious shortness of breath CARDIAC: RRR ABDOMEN: Flat, taut, mild distended, right lower quadrant lower abdominal dull pain, and worse with light palpation bowel sounds active especially in the lower quadrants. NGT clamped, but has been unclamped last p.m. EXTREMITIES: No clubbing, cyanosis, or edema. SKIN: Normal; no rash; no jaundice. CAR SHAGGER: No focal deficits; alert and oriented times three. (Alanna Freitas) Assessment and Plan Assessment: (1) Acute Crohn's disease with complication ICD Codes: K50.919 - Crohn's disease, unspecified, with unspecified complications Status: Acute Plan 06/20/2017, patient became mildly distended and uncomfortable last p.m. after x- ray was done. Unclamped with approximately 800 cc return according to nurse. Currently NGT is been clamped all day and patient states that he was able to take double the p.o. fluids today and had minimal cramping or distention.: X- ray shows nondilated colon. Patient has had daily Dulcolax suppositories on and 424 without results but feels like he has an occasional urge to defecate which passes. Currently patient is passing no gas. Appreciate general surgery input 06/21/2017, patient not feeling as good today, but has been able to tolerate NG without clamping for greater than 24 hours. Multiple fleets enema is given with only return of fluid with a brown color according to patient. Patient is pending reevaluation of general surgery and is reconciled to the possibility of surgical needs. Supportive care given. Last hemoglobin checked 12.2. Right lower quadrant is his chief complaint of dull pain worse with light palpation. 06/22/2017, small bowel follow-through exam unremarkable. Was seen per Dr. Sawant general surgeon who told patient no obstruction, no need for surgical intervention at this time. Patient is still taking daily Dulcolax suppository, but still no bowel movement yet. Colon Continues with minimal motility, patient is continuing to drink clear liquids on a limited basis Patient did have dose of Remicade, on 06-14, Plan Soapsuds enema today If no BM repeat in the a.m. Monitor labs NG tube clamped as much as tolerated Diet clear liquids Supportive care Further recommendations as warranted Patient was seen per myself and Dr. Carlson, note on his behalf (Alanna Freitas) Physician Comments Patient seen and examined Agree with above Continue with current supportive care Monitor labs The small bowel follow-through was basically unremarkable I do not see any residual stools in the colon There may be a component of an ileus in addition to hopefully resolving small bowel obstruction/stricture We will continue with current supportive care and try intermittently to introduce liquids so as to reassess for resolution of obstruction (Tino Carlson MD) Alanna Freitas Jun 22, 2017 13:56 Tino Carlson MD Jun 22, 2017 19:24
--- NOTE | 2017-06-22 18:00 | HHI.PR ---
Subjective Remarks Pt tolerating NGT clamped with occasional need to connect to LIWS. Objective Vitals Vital Signs Date Time Temp Pulse Resp B/P (MAP) Pulse Ox O2 Delivery O2 Flow Rate FiO2 06/22/17 16:00 97.6 75 20 158/97 (117) 98 06/22/17 12:00 98.2 87 16 137/80 (99) 98 06/22/17 08:00 72 06/22/17 08:00 98.1 72 18 136/77 (96) 98 06/22/17 04:00 97.6 73 21 153/99 (117) 97 06/22/17 00:00 97.7 74 21 162/92 (115) 99 06/21/17 20:19 98.0 64 17 153/100 (117) 99 Result Diagram: 06/20/17 0520 06/20/17 0520 Imaging Last Impressions Abdomen X-Ray 06/21/17 0800 Signed Impressions: Service Date/Time: Wednesday, June 21, 2017 08:56 - CONCLUSION: Normal examination. Pramod Chavez MD Small Bowel X-Ray 06/21/17 0000 Signed Impressions: Service Date/Time: Wednesday, June 21, 2017 14:46 - CONCLUSION: Unremarkable small bowel examination. Pramod Chavez MD Abdomen/Pelvis CT 06/19/17 0800 Signed Impressions: Service Date/Time: Monday, June 19, 2017 11:52 - CONCLUSION: 1. Extensive wall thickening of the terminal ileum consistent with patient's known Crohn's disease. No pericolonic fluid collections or abscess. No significant inflammatory changes. 2. No bowel obstruction. Paolo Monroy MD Objective Remarks GENERAL: This is a thin 37 year old male patient with NG tube CARDIO: Regular RESP: CTA bilaterally. ABD: +BS, soft, nondistended, tender on palpation at RUQ and RLQ EXT: Extremities without clubbing, cyanosis, or edema. A/P Problem List: (1) Small bowel obstruction ICD Codes: K56.609 - Unspecified intestinal obstruction, unspecified as to partial versus complete obstruction Status: Acute Plan: - comgmt with General Surgery and GI - Pt is a 37 y/o male with long history of Crohn's disease s/p previous ileocolonic resection and primary anastomosis with recurrent ulceration causing small bowel obstruction. - TPN - areas of severe inflammation on CT. No relistor at this time. - CT A/P (06/19) - Extensive wall thickening of the terminal ileum consistent with patient's known Crohn's - No pericolonic fluid collections or abscess. No significant inflammatory - KUB (06/19) - contrast and gas seen throughout non-dilated colon - Pt is on IV Solu-Medrol 40mg Q6H (06/13 - present) - IV Flagyl (06/13 - present) - IV Cipro (06/13 - present) - Pt started on Remicade on 06/14/17. GI recommending that pt may need repeat Remicade at 2 and 6 weeks - NGT clamped on 06/19 with trial of clears. NGT resumed to LIWS d/t increased abd pain and nausea - NGT again clamped again (06/20) to (06/21). Increased discomfort following trial of clear. Resume LIWS and reclamp in 2 hours. - No flatus - Dilaudid - Entereg - Encourage ambulation - Case d/w with Dr. Sawant on 06/21. Pt examined and interviewed together with Dr. Sawant at the bedside - Case d/w GI, Dr. Carlson (06/20) - Case discussed between Dr. Sawant and Dr. Carlson (06/21) - Gastrografin small bowel follow through (06/21) --> unremarkable - soap suds enemas - DVT prophylaxis - Cont. supportive care (2) Acute Crohn's disease with complication ICD Codes: K50.919 - Crohn's disease, unspecified, with unspecified complications Status: Acute Plan: as above. Juan Alberto Craig DO Jun 22, 2017 18:00
[2017-06-22] MEDS: LORazepam 2 MG/ML VIAL IV PUSH PRN (18:25)
[2017-06-22] MEDS: FAT EMULSION 20% INJ 250 ML (@10 mls/hr) IV-CENTRAL SCH (20:05)
--- NOTE | 2017-06-22 22:59 | HHI.PR ---
Subjective Subjective Notes Pain controlled; intermittent distension causing discomfort. Denies flatus or BM Objective Vitals/I&O Vital Signs Date Time Temp Pulse Resp B/P (MAP) Pulse Ox O2 Delivery O2 Flow Rate FiO2 06/22/17 20:00 98.6 91 18 140/91 (107) 98 Radiology Last 24 hours Impressions Abdomen X-Ray 06/21/17 0800 Signed Impressions: Service Date/Time: Wednesday, June 21, 2017 08:56 - CONCLUSION: Normal examination. Pramod Chavez MD Cardiovascular: Regular Lungs: Clear Abdomen: Non-distended Narrative Exam He has minimal tenderness except to deep palpation in the right lower quadrant. There is no guarding or rebound. A/P Assessment and Plan Impression: Stable from the standpoint of obstruction. Gastrografin SB follow through normal; no stricture or obstruction. X-ray today (to me) shows colonic ileus...despite Entereg and Gastrografin. Plan: It is unclear why there is no bowel activity (other than the presumptive diagnosis of colonic ileus); He obviously has an area of Crohn's disease in the jacqueline-terminal ileum; but there is no obstruction on multiple studies. Labs have been ordered for the AM and also a Gastrografin enema has been ordered in the hopes of producing a cathartic effect. Jose Sawant MD Jun 22, 2017 22:59
[2017-06-23] VITALS: BP 140/84; PULSE 78; RESP 17; TEMP 97.7; O2SAT 97
[2017-06-23] MEDS: HYDROmorphone HCL PF 2 MG/ML VIAL IV PUSH PRN ×4 (00:12→11:56)
[2017-06-23] MEDS: LORazepam 2 MG/ML VIAL IV PUSH PRN ×4 (01:12→20:52)
[2017-06-23 04:00] VITALS: BP 139/88; PULSE 75; RESP 18; TEMP 98; O2SAT 97
[2017-06-23] MEDS: CIPROFLOXACIN 400 MG PREMIX 200 ML IV SCH ×2 (04:15→14:07)
[2017-06-23] MEDS: metroNIDAZOLE 500 MG INJ 100 ML IV SCH ×2 (04:15→11:48)
[2017-06-23] MEDS: methylPREDNISolone SOD SUCC 40 MG/1 ML VIAL IV PUSH SCH ×4 (04:15→23:37)
[2017-06-23 05:08] LABS: AUTOMATED NEUTROPHIL # 15.6 TH/MM3 (1.8-7.7); BASOPHIL % 0.1 % (0.0-2.0); HEMATOCRIT 38.2 % (39.0-51.0); HEMOGLOBIN 12.7 GM/DL (13.0-17.0); LYMPH % 4.7 % (9.0-44.0); LYMPHOCYTE # 0.8 TH/MM3 (1.0-4.8); MEAN CORPUSCULAR HEMOGLOBIN 30.3 PG (27.0-34.0); MEAN CORPUSCULAR HGB CONC 33.3 % (32.0-36.0); MEAN PLATELET VOLUME 7.5 FL (7.0-11.0); MONO % 6.5 % (0.0-8.0); MONOCYTE # 1.1 TH/MM3 (0-0.9); NEUT % 88.7 % (16.0-70.0); PLATELET COUNT 423 TH/MM3 (150-450); RED CELL DISTRIBUTION WIDTH 14.1 % (11.6-17.2); WHITE BLOOD COUNT 17.6 TH/MM3 (4.0-11.0)
[2017-06-23] MEDS: ONDANSETRON HCL 4 MG/2 ML VIAL IVP PRN ×3 (05:12→18:00)
[2017-06-23 05:36] LABS: BICARBONATE 30.3 MEQ/L (21.0-32.0); CALCIUM 8.9 MG/DL (8.5-10.1); CREATININE 0.49 MG/DL (0.60-1.30)
[2017-06-23] MEDS: FOLIC ACID IV-CENTRAL SCH ×6 (07:59→20:55)
[2017-06-23] MEDS: AMINO ACID IV-CENTRAL SCH ×6 (07:59→20:55)
[2017-06-23] MEDS: MULTIVITAMIN IV-CENTRAL SCH ×6 (07:59→20:55)
[2017-06-23] MEDS: [UNRECOGNIZED DRUG - OTHER] IV-CENTRAL SCH ×6 (07:59→20:55)
[2017-06-23 08:00] VITALS: BP 139/89; PULSE 68; PULSE 72; RESP 18; TEMP 97.7; O2SAT 100
[2017-06-23] MEDS: ALVIMOPAN 12 MG CAPSULE PO SCH ×2 (08:02→20:54)
[2017-06-23] MEDS: DOCUSATE SODIUM 50 MG/SENNA 8.6 MG TAB PO SCH ×2 (08:02→20:55)
[2017-06-23] MEDS: BISACODYL 10 MG SUPP RECTAL SCH (08:02)
[2017-06-23] MEDS: SODIUM CHLORIDE 0.9% FLUSH 10 ML FLUSH IV FLUSH SCH ×3 (08:06→20:52)
--- NOTE | 2017-06-23 10:30 | RADRPT ---
EXAM DATE/TIME: 06/23/2017 09:16 [facility] COMPARISON: No previous studies available for comparison. INDICATIONS : Pain, constipation FLUORO TIME: 1.3 minutes IMAGE COUNT: 9 CONTRAST: 1. [facility] MEDICAL HISTORY : Crohn's disease. SURGICAL HISTORY : Appendectomy. 10 ft of small bowel removed, ileostomy for 6 mos. then reversed. ENCOUNTER: Initial ACUITY: 1 week PAIN SCORE: 3/10 LOCATION: Bilateral abdomen FINDINGS: Preliminary film is unremarkable. Under fluoroscopic guidance a Gastrografin enema was performed with free flow of contrast to the ceca l tip. No significant residual stool was noted Post evacuation radiographs are unremarkable. CONCLUSION: Unremarkable Gastrografin enema. Pramod Chavez MD on June 23, 2017 at 10:27 Board Certified Radiologist. This report was verified electronically.
[2017-06-23] MEDS ORDERED: DIATRIZOATE MEGLUM/DIATRIZOATE SOD 120 ML BTL (for RAD DIAG) RECTAL ONE (11:24)
[2017-06-23 12:00] VITALS: BP 152/93; PULSE 106; RESP 17; TEMP 98.3; O2SAT 98
--- NOTE | 2017-06-23 15:10 | HHI.GIFU ---
Subjective Remarks Resting in the bed able to move around the bed without any major distress Still no BM after 3 different enemas within the past 24 hours Continues to tolerate clear liquids fairly well Currently NG tube is clamped and patient is attempting to leave clamped as much as possible (Alanna Freitas) Objective Vitals I&O Vital Signs Date Time Temp Pulse Resp B/P (MAP) Pulse Ox O2 Delivery O2 Flow Rate FiO2 06/23/17 12:00 98.3 106 17 152/93 (112) 98 06/23/17 08:00 97.7 68 18 139/89 (106) 100 06/23/17 08:00 72 06/23/17 04:00 98.0 75 18 139/88 (105) 97 06/23/17 00:00 97.7 78 17 140/84 (102) 97 06/22/17 21:00 98 06/22/17 20:00 98.6 91 18 140/91 (107) 98 06/22/17 16:00 97.6 75 20 158/97 (117) 98 I/O 06/22/17 06/22/17 06/22/17 06/23/17 06/23/17 06/23/17 07:00 15:00 23:00 07:00 15:00 23:00 Intake Total 300 ml 2735.1 ml 100 ml Output Total 500 ml 500 ml 1000 ml Balance -200 ml 2235.1 ml -900 ml Intake Oral 480 ml IV Total 300 ml 2255.1 ml 100 ml Output Urine Total 500 ml 700 ml Gastric Drainage Total 500 ml 300 ml # Bowel Movements 0 Laboratory Laboratory Tests Test 06/23/17 04:27 White Blood Count 17.6 Red Blood Count 4.20 Hemoglobin 12.7 Hematocrit 38.2 Mean Corpuscular Volume 91.0 Mean Corpuscular Hemoglobin 30.3 Mean Corpuscular Hemoglobin Concent 33.3 Red Cell Distribution Width 14.1 Platelet Count 423 Mean Platelet Volume 7.5 Neutrophils (%) (Auto) 88.7 Lymphocytes (%) (Auto) 4.7 Monocytes (%) (Auto) 6.5 Eosinophils (%) (Auto) 0.0 Basophils (%) (Auto) 0.1 Neutrophils # (Auto) 15.6 Lymphocytes # (Auto) 0.8 Monocytes # (Auto) 1.1 Eosinophils # (Auto) 0.0 Basophils # (Auto) 0.0 CBC Comment DIFF FINAL Differential Comment Blood Urea Nitrogen 13 Creatinine 0.49 Random Glucose 117 Calcium Level 8.9 Sodium Level 140 Potassium Level 3.7 Chloride Level 104 Carbon Dioxide Level 30.3 Anion Gap 6 Estimat Glomerular Filtration Rate 194 Imaging Last Impressions Enema w/Water Soluble 06/23/17 0900 Signed Impressions: Service Date/Time: Friday, June 23, 2017 09:16 - CONCLUSION: Unremarkable Gastrografin enema. Pramod Chavez MD Abdomen X-Ray 06/21/17 0800 Signed Impressions: Service Date/Time: Wednesday, June 21, 2017 08:56 - CONCLUSION: Normal examination. Pramod Chavez MD Small Bowel X-Ray 06/21/17 0000 Signed Impressions: Service Date/Time: Wednesday, June 21, 2017 14:46 - CONCLUSION: Unremarkable small bowel examination. Pramod Chavez MD Abdomen/Pelvis CT 06/19/17 0800 Signed Impressions: Service Date/Time: Monday, June 19, 2017 11:52 - CONCLUSION: 1. Extensive wall thickening of the terminal ileum consistent with patient's known Crohn's disease. No pericolonic fluid collections or abscess. No significant inflammatory changes. 2. No bowel obstruction. Paolo Monroy MD Physical Exam HEENT: Normocephalic; atraumatic, slim build, NG tube clamped CHEST: Even/unlabored no obvious shortness of breath CARDIAC: RRR ABDOMEN: Flat, taut, no distention noted, right lower quadrant tenderness with light palpation dull ache off and on NGT clamped, EXTREMITIES: No clubbing, cyanosis, or edema. SKIN: Normal; no rash; no jaundice. PACKAGING COORDINATOR: No focal deficits; alert and oriented times three. (Alanna Freitas) Assessment and Plan Assessment: (1) Acute Crohn's disease with complication ICD Codes: K50.919 - Crohn's disease, unspecified, with unspecified complications Status: Acute Plan 06/20/2017, patient became mildly distended and uncomfortable last p.m. after x- ray was done. Unclamped with approximately 800 cc return according to nurse. Currently NGT is been clamped all day and patient states that he was able to take double the p.o. fluids today and had minimal cramping or distention.: X- ray shows nondilated colon. Patient has had daily Dulcolax suppositories on 423 and 424 without results but feels like he has an occasional urge to defecate which passes. Currently patient is passing no gas. Appreciate general surgery input 06/21/2017, patient not feeling as good today, but has been able to tolerate NG without clamping for greater than 24 hours. Multiple fleets enema is given with only return of fluid with a brown color according to patient. Patient is pending reevaluation of general surgery and is reconciled to the possibility of surgical needs. Supportive care given. Last hemoglobin checked 12.2. Right lower quadrant is his chief complaint of dull pain worse with light palpation. 06/22/2017, small bowel follow-through exam unremarkable. Was seen per Dr. Sawant general surgeon who told patient no obstruction, no need for surgical intervention at this time. Patient is still taking daily Dulcolax suppository, but still no bowel movement yet. Colon Continues with minimal motility, patient is continuing to drink clear liquids on a limited basis Patient did have dose of Remicade, on -06/23/2017 patient had 2 soapsuds enemas and a Gastrografin enema this a.m which was unremarkable.. Brown water returned with subset enemas but no solid stool Plan Monitor labs NG tube clamped as much as tolerated, connected to wall suction to release pain or pressure only as needed Diet clear liquids Supportive care Further recommendations as warranted Patient was seen per myself and Dr. Carlson, note on his behalf (Alanna Freitas) Physician Comments Patient seen and examined Agree with above Continue with current supportive care Monitor labs Still behaving like a small bowel obstruction We will prepped slowly over the weekend and pursue a colonoscopy with possible TIA dilation on Monday (Tino Carlson MD) Alanna Freitas Jun 23, 2017 15:10 Tino Carlson MD Jun 23, 2017 17:36
[2017-06-23 16:00] VITALS: BP 145/90; PULSE 90; RESP 17; TEMP 98.5; O2SAT 99
--- NOTE | 2017-06-23 17:12 | HHI.PR ---
Subjective Remarks Pt much more comfortable today and in better spirits. Pt had a bowel movement. Pt's abdomen is less painful today. Objective Vitals Vital Signs Date Time Temp Pulse Resp B/P (MAP) Pulse Ox O2 Delivery O2 Flow Rate FiO2 06/23/17 12:00 98.3 106 17 152/93 (112) 98 06/23/17 08:00 97.7 68 18 139/89 (106) 100 06/23/17 08:00 72 06/23/17 04:00 98.0 75 18 139/88 (105) 97 06/23/17 00:00 97.7 78 17 140/84 (102) 97 06/22/17 21:00 98 06/22/17 20:00 98.6 91 18 140/91 (107) 98 Result Diagram: 06/23/1742606/23/17 042 Imaging Last Impressions Enema w/Water Soluble 06/23/17 0900 Signed Impressions: Service Date/Time: Friday, June 23, 2017 09:16 - CONCLUSION: Unremarkable Gastrografin enema. Pramod Chavez MD Abdomen X-Ray 06/21/17 0800 Signed Impressions: Service Date/Time: Wednesday, June 21, 2017 08:56 - CONCLUSION: Normal examination. Pramod Chavez MD Small Bowel X-Ray 06/21/17 0000 Signed Impressions: Service Date/Time: Wednesday, June 21, 2017 14:46 - CONCLUSION: Unremarkable small bowel examination. Pramod Chavez MD Abdomen/Pelvis CT 06/19/17 0800 Signed Impressions: Service Date/Time: Monday, June 19, 2017 11:52 - CONCLUSION: 1. Extensive wall thickening of the terminal ileum consistent with patient's known Crohn's disease. No pericolonic fluid collections or abscess. No significant inflammatory changes. 2. No bowel obstruction. Paolo Monroy MD Objective Remarks GENERAL: This is a thin 37 year old male patient with NG tube CARDIO: Regular RESP: CTA bilaterally. ABD: +BS, soft, nondistended, mildly tender on palpation at RUQ --> much improved from earlier in the week. EXT: Extremities without clubbing, cyanosis, or edema. A/P Problem List: (1) Small bowel obstruction ICD Codes: K56.609 - Unspecified intestinal obstruction, unspecified as to partial versus complete obstruction Status: Acute Plan: - comgmt with General Surgery and GI - Pt is a 37 y/o male with long history of Crohn's disease s/p previous ileocolonic resection and primary anastomosis with recurrent ulceration causing small bowel obstruction. - TPN - areas of severe inflammation on CT. No relistor at this time. - CT A/P (06/19) - Extensive wall thickening of the terminal ileum consistent with patient's known Crohn's - No pericolonic fluid collections or abscess. No significant inflammatory - KUB (06/19) - contrast and gas seen throughout non-dilated colon - Pt is on IV Solu-Medrol 40mg Q6H (06/13 - present) - IV Flagyl (06/13 - present) - IV Cipro (06/13 - ) - Pt started on Remicade on 06/14/17. GI recommending that pt may need repeat Remicade at 2 and 6 weeks - NGT clamped on 06/19 with trial of clears. NGT resumed to LIWS d/t increased abd pain and nausea - NGT again clamped again (06/20) to (06/21). Increased discomfort following trial of clear. Resume LIWS and reclamp in 2 hours. - NGT tube removed (06/23) - Pt had BM 06/23/17 - No flatus? Pt not sure. - Dilaudid. Decrease frequency to q6h & will continue to decrease frequency/ dose over the next 48 hours - Entereg - Encourage ambulation - Case d/w with Dr. Sawant on 06/21. Pt examined and interviewed together with Dr. Sawant at the bedside - Case d/w GI, Dr. Carlson (06/20) - Case discussed between Dr. Sawant and Dr. Carlson (06/21) - Gastrografin small bowel follow through (06/21) --> unremarkable - Gastrografin enema (06/23) --> unremarkable - encourage clear diet. Will try to advance to full liquids 06/24/17 - Case d/w Dr. Sawant (06/23/17) - Possible Colonoscopy 06/26/17 - If pt continued to improve and tolerates advanced diet, then hopefully home or 06/27 - DVT prophylaxis - Cont. supportive care (2) Acute Crohn's disease with complication ICD Codes: K50.919 - Crohn's disease, unspecified, with unspecified complications Status: Acute Plan: as above. Juan Alberto Craig DO Jun 23, 2017 17:12
[2017-06-23 20:00] VITALS: BP 137/88; PULSE 80; RESP 18; TEMP 98.1; O2SAT 97
[2017-06-23] MEDS: FAT EMULSION 20% INJ 250 ML (@10 mls/hr) IV-CENTRAL SCH (20:55)
[2017-06-23] MEDS: HYDROmorphone HCL PF 0.5 MG/0.5 ML SYRINGE IV PUSH PRN (23:37)
[2017-06-24] VITALS (9 sets, daily range): BP systolic 131–144; BP diastolic 82–87; PULSE 67–144; RESP 17–19; TEMP 97.4–99.7; O2SAT 97–98
[2017-06-24] MEDS: LORazepam 2 MG/ML VIAL IV PUSH PRN ×4 (03:45→21:45)
[2017-06-24] MEDS: NS + KCL 20 MEQ INJ 1,000 ML IV SCH (03:48)
[2017-06-24] MEDS: ONDANSETRON HCL 4 MG/2 ML VIAL IVP PRN ×3 (03:48→18:20)
[2017-06-24] MEDS: methylPREDNISolone SOD SUCC 40 MG/1 ML VIAL IV PUSH SCH ×3 (06:12→17:37)
[2017-06-24] MEDS: HYDROmorphone HCL PF 0.5 MG/0.5 ML SYRINGE IV PUSH PRN ×3 (06:13→18:22)
[2017-06-24] MEDS: DOCUSATE SODIUM 50 MG/SENNA 8.6 MG TAB PO SCH ×2 (08:44→20:01)
[2017-06-24] MEDS: SODIUM CHLORIDE 0.9% FLUSH 10 ML FLUSH IV FLUSH SCH ×3 (08:44→20:01)
[2017-06-24] MEDS: BISACODYL 10 MG SUPP RECTAL SCH (08:44)
[2017-06-24] MEDS: ALVIMOPAN 12 MG CAPSULE PO SCH ×2 (08:44→20:00)
[2017-06-24] MEDS: MULTIVITAMIN IV-CENTRAL SCH ×6 (09:56→21:45)
[2017-06-24] MEDS: FOLIC ACID IV-CENTRAL SCH ×6 (09:56→21:45)
[2017-06-24] MEDS: AMINO ACID IV-CENTRAL SCH ×6 (09:56→21:45)
[2017-06-24] MEDS: [UNRECOGNIZED DRUG - OTHER] IV-CENTRAL SCH ×6 (09:56→21:45)
--- NOTE | 2017-06-24 10:29 | HHI.PR ---
Subjective Remarks Pt feeling much better. Pt in good spirits. Pt had 2 BMs this morning. Pt tolerating clears. Pt had episode of nausea overnight which was self limiting. Objective Vitals Vital Signs Date Time Temp Pulse Resp B/P (MAP) Pulse Ox O2 Delivery O2 Flow Rate FiO2 06/24/17 07:53 78 06/24/17 04:00 97.4 67 19 139/87 (104) 97 06/24/17 00:00 99.7 78 18 136/82 (100) 97 06/23/17 20:00 98.1 80 18 137/88 (104) 97 06/23/17 16:00 98.5 90 17 145/90 (108) 99 06/23/17 12:00 98.3 106 17 152/93 (112) 98 Result Diagram: 06/23/1742606/23/17 042 Imaging Last Impressions Enema w/Water Soluble 06/23/17 0900 Signed Impressions: Service Date/Time: Friday, June 23, 2017 09:16 - CONCLUSION: Unremarkable Gastrografin enema. Pramod Chavez MD Abdomen X-Ray 06/21/17 0800 Signed Impressions: Service Date/Time: Wednesday, June 21, 2017 08:56 - CONCLUSION: Normal examination. Pramod Chavez MD Small Bowel X-Ray 06/21/17 0000 Signed Impressions: Service Date/Time: Wednesday, June 21, 2017 14:46 - CONCLUSION: Unremarkable small bowel examination. Pramod Chavez MD Abdomen/Pelvis CT 06/19/17 0800 Signed Impressions: Service Date/Time: Monday, June 19, 2017 11:52 - CONCLUSION: 1. Extensive wall thickening of the terminal ileum consistent with patient's known Crohn's disease. No pericolonic fluid collections or abscess. No significant inflammatory changes. 2. No bowel obstruction. Paolo Monroy MD Objective Remarks GENERAL: This is a thin 37 year old male patient with NG tube CARDIO: Regular RESP: CTA bilaterally. ABD: +BS, soft, nondistended, non-tender, no pain on palpation, no g/r/r much improved from earlier this week. EXT: Extremities without clubbing, cyanosis, or edema. A/P Problem List: (1) Small bowel obstruction ICD Codes: K56.609 - Unspecified intestinal obstruction, unspecified as to partial versus complete obstruction Status: Acute Plan: - comgmt with General Surgery and GI - Pt is a 37 y/o male with long history of Crohn's disease s/p previous ileocolonic resection and primary anastomosis with recurrent ulceration causing small bowel obstruction. - TPN - areas of severe inflammation on CT. No relistor at this time. - CT A/P (06/19) - Extensive wall thickening of the terminal ileum consistent with patient's known Crohn's - No pericolonic fluid collections or abscess. No significant inflammatory - KUB (06/19) - contrast and gas seen throughout non-dilated colon - Pt is on IV Solu-Medrol 40mg Q6H (06/13 - present) - IV Flagyl (06/13 - present) - IV Cipro (06/13 - ) - Pt started on Remicade on 06/14/17. GI recommending that pt may need repeat Remicade at 2 and 6 weeks - NGT clamped on 06/19 with trial of clears. NGT resumed to LIWS d/t increased abd pain and nausea - NGT again clamped again (06/20) to (06/21). Increased discomfort following trial of clear. Resume LIWS and reclamp in 2 hours. - NGT tube removed (06/23) - Pt had BM 06/23/17 - No flatus? Pt not sure. - Dilaudid. Decrease frequency to q6h & will continue to decrease frequency/ dose over the next 48 hours - Entereg - Encourage ambulation - Case d/w with Dr. Sawant on 06/21. Pt examined and interviewed together with Dr. Sawant at the bedside - Case d/w GI, Dr. Carlson (06/20) - Case discussed between Dr. Sawant and Dr. Carlson (06/21) - Gastrografin small bowel follow through (06/21) --> unremarkable - Gastrografin enema (06/23) --> unremarkable - Pt tolerating clear diet, will advance today (06/24) to full liquid diet - Consider advancing further to a soft diet (06/25) - Case d/w Dr. Sawant (06/23/17) - Possible Colonoscopy 4/30/18? But now no evidence of obstruction. Maybe colonoscopy could be done outpt. - If pt continued to improve and tolerates advanced diet, - Pt to receive next dose of Remicade 06/28/17 - Pt still receiving IV steroids. Will need to change to PO steroids and observe clinical response prior to discharge. - DVT prophylaxis - Cont. supportive care (2) Acute Crohn's disease with complication ICD Codes: K50.919 - Crohn's disease, unspecified, with unspecified complications Status: Acute Plan: as above. Juan Alberto Craig DO Jun 24, 2017 10:29
--- NOTE | 2017-06-24 15:16 | HHI.GIFU ---
Subjective Remarks Patient's resting in the bed Patient had 2 small pudding consistency stools yesterday Continues with clear liquids NG tube DC'd on 06/23/2017 Low-grade fever this morning 99.7 (Alanna Freitas) Objective Vitals I&O Vital Signs Date Time Temp Pulse Resp B/P (MAP) Pulse Ox O2 Delivery O2 Flow Rate FiO2 06/24/17 13:03 06/24/17 12:00 98.1 95 19 137/84 (101) 97 06/24/17 11:02 144 06/24/17 08:00 97.8 74 17 134/87 (103) 98 06/24/17 07:53 78 06/24/17 04:00 97.4 67 19 139/87 (104) 97 06/24/17 00:00 99.7 78 18 136/82 (100) 97 06/23/17 20:00 98.1 80 18 137/88 (104) 97 06/23/17 16:00 98.5 90 17 145/90 (108) 99 I/O 06/23/17 06/23/17 06/23/17 06/24/17 06/24/17 06/24/17 07:00 15:00 23:00 07:00 15:00 23:00 Intake Total 100 ml 100 ml 1160 ml Output Total 1000 ml 1600 ml 1850 ml Balance -900 ml 100 ml -440 ml -1850 ml Intake Oral 960 ml IV Total 100 ml 100 ml 200 ml Output Urine Total 700 ml 900 ml 1850 ml Gastric Drainage Total 300 ml 700 ml # Bowel Movements 1 Imaging Last Impressions Enema w/Water Soluble 06/23/17 09 Signed Impressions: Service Date/Time: Friday, June 23, 2017 09:16 - CONCLUSION: Unremarkable Gastrografin enema. Pramod Chavez MD Abdomen X-Ray 06/21/17 0800 Signed Impressions: Service Date/Time: Wednesday, June 21, 2017 08:56 - CONCLUSION: Normal examination. Pramod Chavez MD Small Bowel X-Ray 06/21/17 0000 Signed Impressions: Service Date/Time: Wednesday, June 21, 2017 14:46 - CONCLUSION: Unremarkable small bowel examination. Pramod Chavez MD Abdomen/Pelvis CT 06/19/17 0800 Signed Impressions: Service Date/Time: Monday, June 19, 2017 11:52 - CONCLUSION: 1. Extensive wall thickening of the terminal ileum consistent with patient's known Crohn's disease. No pericolonic fluid collections or abscess. No significant inflammatory changes. 2. No bowel obstruction. Paolo Monroy MD Physical Exam HEENT: Normocephalic; atraumatic, slim build, NG tube DC'd on 06/23/2017 CHEST: Even/unlabored no obvious shortness of breath CARDIAC: RRR ABDOMEN: Flat, taut, no distention noted, minimal but still lower right quadrant abdominal discomfort EXTREMITIES: No clubbing, cyanosis, or edema. SKIN: Normal; no rash; no jaundice. 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 (Alanna Freitas) Assessment and Plan Assessment: (1) Acute Crohn's disease with complication ICD Codes: K50.919 - Crohn's disease, unspecified, with unspecified complications Status: Acute Plan 06/20/2017, patient became mildly distended and uncomfortable last p.m. after x- ray was done. Unclamped with approximately 800 cc return according to nurse. Currently NGT is been clamped all day and patient states that he was able to take double the p.o. fluids today and had minimal cramping or distention.: X- ray shows nondilated colon. Patient has had daily Dulcolax suppositories on 423 and 424 without results but feels like he has an occasional urge to defecate which passes. Currently patient is passing no gas. Appreciate general surgery input 06/21/2017, patient not feeling as good today, but has been able to tolerate NG without clamping for greater than 24 hours. Multiple fleets enema is given with only return of fluid with a brown color according to patient. Patient is pending reevaluation of general surgery and is reconciled to the possibility of surgical needs. Supportive care given. Last hemoglobin checked 12.2. Right lower quadrant is his chief complaint of dull pain worse with light palpation. 06/22/2017, small bowel follow-through exam unremarkable. Was seen per Dr. Sawant general surgeon who told patient no obstruction, no need for surgical intervention at this time. Patient is still taking daily Dulcolax suppository, but still no bowel movement yet. Colon Continues with minimal motility, patient is continuing to drink clear liquids on a limited basis Patient did have dose of Remicade, on 06-1406/23/2017 patient had 2 soapsuds enemas and a Gastrografin enema this a.m which was unremarkable.. Brown water returned with subset enemas but no solid stool 06/24/2017, patient did have 2 small putting consistent BMs on 06/24/2017. Patient still on clear liquids and tolerating fairly well. Discussion with Dr. Blackmon on 427 for slow prep over the and pursue a colonoscopy with possible TIA dilation on Monday. NG tube was DC'd. Will discuss further if colonoscopy is still the plan for Monday since patient has had bowel movements. Plan Monitor labs Possible colonoscopy Monday with TIA dilation Slow prep Monday Diet clear liquids Supportive care Further recommendations as warranted Patient was seen per myself and Dr. Chung, note on his behalf (Alanna Freitas) Plan Patient was seen and examined, seems to be doing better, he stated he had 2 bowel movements, tolerating liquid, I discussed with him doing colonoscopy with dilation he does not give any impression if he wanted, with the finding on the small bowel where there is no obstruction or stricture dilation may not be needed, he already started on Remicade, plan to give him a second dose on Monday and possibly discharge after that, patient want to have a colostomy which I do not think this is a good idea if we can medically, historically he was not on any medication for a long period of time because of insurance inability to get medication, hopefully he will adhere to treatment at this time (Temitope Chung MD) Alanna Freitas Jun 24, 2017 15:16 Temitope Chung MD Jun 24, 2017 18:55
[2017-06-24] MEDS: FAT EMULSION 20% INJ 250 ML (@10 mls/hr) IV-CENTRAL SCH (20:01)
[2017-06-25] VITALS (9 sets, daily range): BP systolic 133–155; BP diastolic 80–97; PULSE 70–120; RESP 16–18; TEMP 97.7–98.9; O2SAT 94–99
[2017-06-25] MEDS: methylPREDNISolone SOD SUCC 40 MG/1 ML VIAL IV PUSH SCH ×5 (00:15→23:52)
[2017-06-25] MEDS: HYDROmorphone HCL PF 0.5 MG/0.5 ML SYRINGE IV PUSH PRN ×4 (00:17→19:11)
[2017-06-25] MEDS: LORazepam 2 MG/ML VIAL IV PUSH PRN ×4 (02:37→21:24)
[2017-06-25] MEDS: NS + KCL 20 MEQ INJ 1,000 ML IV SCH (04:00)
[2017-06-25] MEDS: DOCUSATE SODIUM 50 MG/SENNA 8.6 MG TAB PO SCH ×2 (09:26→19:48)
[2017-06-25] MEDS: ALVIMOPAN 12 MG CAPSULE PO SCH ×2 (09:27→19:48)
[2017-06-25] MEDS: BISACODYL 10 MG SUPP RECTAL SCH (09:27)
[2017-06-25] MEDS: SODIUM CHLORIDE 0.9% FLUSH 10 ML FLUSH IV FLUSH SCH ×3 (09:28→19:49)
[2017-06-25] MEDS: AMINO ACID IV-CENTRAL SCH ×6 (10:13→21:24)
[2017-06-25] MEDS: FOLIC ACID IV-CENTRAL SCH ×6 (10:13→21:24)
[2017-06-25] MEDS: [UNRECOGNIZED DRUG - OTHER] IV-CENTRAL SCH ×6 (10:13→21:24)
[2017-06-25] MEDS: MULTIVITAMIN IV-CENTRAL SCH ×6 (10:13→21:24)
[2017-06-25] MEDS: ONDANSETRON HCL 4 MG/2 ML VIAL IVP PRN ×2 (13:29→19:11)
[2017-06-25] MEDS ORDERED: PEG (High)/E-LYTE SOLN 4000 ML BTL PO ONE (14:00)
--- NOTE | 2017-06-25 14:27 | HHI.GIFU ---
Subjective Remarks Pt resting in bed. father at bedside. Soft BM yesterday. Feels activity in bowels but denies flatus. + nausea but no vomit today (Candace Pendleton) Objective Vitals I&O Vital Signs Date Time Temp Pulse Resp B/P (MAP) Pulse Ox O2 Delivery O2 Flow Rate FiO2 06/25/17 13:40 06/25/17 12:42 97.8 80 17 139/82 (101) 99 06/25/17 08:16 88 06/25/17 08:00 97.7 101 16 147/80 (102) 99 06/25/17 04:00 98.9 74 17 135/82 (99) 95 06/25/17 04:00 70 06/25/17 00:47 18 06/25/17 00:00 73 06/25/17 00:00 97.7 70 17 133/80 (97) 97 06/24/17 20:00 98.7 94 17 144/82 (102) 97 06/24/17 20:00 107 06/24/17 17:35 06/24/17 16:00 98.6 104 18 131/83 (99) 97 06/24/17 15:31 88 I/O 06/24/17 06/24/17 06/24/17 06/25/17 06/25/17 06/25/17 07:00 15:00 23:00 07:00 15:00 23:00 Intake Total 2455.1 ml 1000 ml 136 ml Output Total 1850 ml 2650 ml 1000 ml Balance -1850 ml -194.9 ml 0 ml 136 ml Intake Oral 1200 ml 0 ml IV Total 1255.1 ml 1000 ml 136 ml Output Urine Total 1850 ml 2650 ml 1000 ml # Bowel Movements 1 1 0 Imaging Last Impressions Enema w/Water Soluble 06/23/17 09 Signed Impressions: Service Date/Time: Friday, June 23, 2017 09:16 - CONCLUSION: Unremarkable Gastrografin enema. Pramod Chavez MD Abdomen X-Ray 06/21/17 0800 Signed Impressions: Service Date/Time: Wednesday, June 21, 2017 08:56 - CONCLUSION: Normal examination. Pramod Chavez MD Small Bowel X-Ray 06/21/17 0000 Signed Impressions: Service Date/Time: Wednesday, June 21, 2017 14:46 - CONCLUSION: Unremarkable small bowel examination. Pramod Chavez MD Abdomen/Pelvis CT 06/19/17 0800 Signed Impressions: Service Date/Time: Monday, June 19, 2017 11:52 - CONCLUSION: 1. Extensive wall thickening of the terminal ileum consistent with patient's known Crohn's disease. No pericolonic fluid collections or abscess. No significant inflammatory changes. 2. No bowel obstruction. Paolo Monroy MD Physical Exam HEENT: Normocephalic; atraumatic, CHEST: Even/unlabored CARDIAC: RRR ABDOMEN: mildly distended, nontender to light palpation, BS + EXTREMITIES: No clubbing, cyanosis, or edema. SKIN: Normal; no rash; no jaundice. VISUAL STYLIST: No focal deficits; alert and oriented times three. (Candace Pendleton TOW CAR DRIVER) Assessment and Plan Assessment: (1) Acute Crohn's disease with complication ICD Codes: K50.919 - Crohn's disease, unspecified, with unspecified complications Status: Acute Plan Plan 06/20/2017, patient became mildly distended and uncomfortable last p.m. after x- ray was done. Unclamped with approximately 800 cc return according to nurse. Currently NGT is been clamped all day and patient states that he was able to take double the p.o. fluids today and had minimal cramping or distention.: X- ray shows nondilated colon. Patient has had daily Dulcolax suppositories on 423 and 424 without results but feels like he has an occasional urge to defecate which passes. Currently patient is passing no gas. Appreciate general surgery input 06/21/2017, patient not feeling as good today, but has been able to tolerate NG without clamping for greater than 24 hours. Multiple fleets enema is given with only return of fluid with a brown color according to patient. Patient is pending reevaluation of general surgery and is reconciled to the possibility of surgical needs. Supportive care given. Last hemoglobin checked 12.2. Right lower quadrant is his chief complaint of dull pain worse with light palpation. 06/22/2017, small bowel follow-through exam unremarkable. Was seen per Dr. Sawant general surgeon who told patient no obstruction, no need for surgical intervention at this time. Patient is still taking daily Dulcolax suppository, but still no bowel movement yet. Colon Continues with minimal motility, patient is continuing to drink clear liquids on a limited basis Patient did have dose of Remicade, on 06-1406/23/2017 patient had 2 soapsuds enemas and a Gastrografin enema this a.m which was unremarkable.. Brown water returned with subset enemas but no solid stool 06/24/2017, patient did have 2 small putting consistent BMs on 06/24/2017. Patient still on clear liquids and tolerating fairly well. Discussion with Dr. Blackmon on 427 for slow prep over the weekend and pursue a colonoscopy with possible TIA dilation on Monday. NG tube was DC'd. Will discuss further if colonoscopy is still the plan for Monday since patient has had bowel movements. 06/25/17 pt tolerating small amts clears, still some nausea. pain much improved. BM yesterday. Pt requesting alternative GI doc to do colonoscopy Plan continue remicade Monitor labs Slow prep today Diet clear liquids Supportive care outpt colonoscopy with GI of pt's choice pt seen by myself and Dr Chung and myself and this note is on his behalf (Candace Pendlteon) Plan Patient was seen and examined, agree with above note, we will do colonoscopy tomorrow if there is any stricture will dilate otherwise patient can have his second dose of Remicade on Monday and can be discharged if he continued to do well (Temitope Chung MD) Candace Pendleton Jun 25, 2017 14:27 Temitope Chung MD Jun 25, 2017 19:16
--- NOTE | 2017-06-25 18:06 | HHI.PR ---
Subjective Remarks Pt tolerating full liquids. Still with some occasional mild nausea. Objective Vitals Vital Signs Date Time Temp Pulse Resp B/P (MAP) Pulse Ox O2 Delivery O2 Flow Rate FiO2 06/25/17 17:04 06/25/17 15:05 84 06/25/17 13:40 06/25/17 12:42 97.8 80 17 139/82 (101) 99 06/25/17 08:16 88 06/25/17 08:00 97.7 101 16 147/80 (102) 99 06/25/17 04:00 98.9 74 17 135/82 (99) 95 06/25/17 04:00 70 06/25/17 00:47 18 06/25/17 00:00 73 06/25/17 00:00 97.7 70 17 133/80 (97) 97 06/24/17 20:00 98.7 94 17 144/82 (102) 97 06/24/17 20:00 107 06/25/17 06/25/17 06/26/17 15:00 23:00 07:00 Intake Total 136 ml Balance 136 ml IV Total 136 ml Result Diagram: 06/23/17 0427 06/23/17 0427 Imaging Last Impressions Enema w/Water Soluble 06/23/17 0900 Signed Impressions: Service Date/Time: Friday, June 23, 2017 09:16 - CONCLUSION: Unremarkable Gastrografin enema. Pramod Chavez MD Abdomen X-Ray 06/21/17 0800 Signed Impressions: Service Date/Time: Wednesday, June 21, 2017 08:56 - CONCLUSION: Normal examination. Pramod Chavez MD Small Bowel X-Ray 06/21/17 0000 Signed Impressions: Service Date/Time: Wednesday, June 21, 2017 14:46 - CONCLUSION: Unremarkable small bowel examination. Pramod Chavez MD Abdomen/Pelvis CT 06/19/17 0800 Signed Impressions: Service Date/Time: Monday, June 19, 2017 11:52 - CONCLUSION: 1. Extensive wall thickening of the terminal ileum consistent with patient's known Crohn's disease. No pericolonic fluid collections or abscess. No significant inflammatory changes. 2. No bowel obstruction. Paolo Monroy MD Objective Remarks GENERAL: This is a thin 37 year old male patient with NG tube CARDIO: Regular RESP: CTA bilaterally. ABD: +BS, soft, nondistended, non-tender, no pain on palpation, no g/r/r much improved from earlier this week. EXT: Extremities without clubbing, cyanosis, or edema. A/P Problem List: (1) Small bowel obstruction ICD Codes: K56.609 - Unspecified intestinal obstruction, unspecified as to partial versus complete obstruction Status: Acute Plan: - comgmt with General Surgery and GI - Pt is a 37 y/o male with long history of Crohn's disease s/p previous ileocolonic resection and primary anastomosis with recurrent ulceration causing small bowel obstruction. - TPN - areas of severe inflammation on CT. No relistor at this time. - CT A/P (06/19) - Extensive wall thickening of the terminal ileum consistent with patient's known Crohn's - No pericolonic fluid collections or abscess. No significant inflammatory - KUB (06/19) - contrast and gas seen throughout non-dilated colon - Pt is on IV Solu-Medrol 40mg Q6H (06/13 - present) - IV Flagyl (06/13 - present) - IV Cipro (06/13 - present) - Pt started on Remicade on 06/14/17. GI recommending that pt may need repeat Remicade at 2 and 6 weeks - NGT clamped on 06/19 with trial of clears. NGT resumed to LIWS d/t increased abd pain and nausea - NGT again clamped again (06/20) to (06/21). Increased discomfort following trial of clear. Resume LIWS and reclamp in 2 hours. - NGT tube removed (06/23) - Pt had BM 06/23/17 - Dilaudid. Decrease frequency to q6h & following colonoscopy will try to wean completely off IV dilaudid - Entereg - Encourage ambulation - Case d/w with Dr. Sawant on 06/21. Pt examined and interviewed together with Dr. Sawant at the bedside - Case d/w GI, Dr. Carlson (06/20) - Case discussed between Dr. Sawant and Dr. Carlson (06/21) - Gastrografin small bowel follow through (06/21) --> unremarkable - Gastrografin enema (06/23) --> unremarkable - Pt tolerating clear diet, will advance today (06/24) to full liquid diet - following colonoscopy will try to advance to soft diet - Case d/w Dr. Sawant (06/23/17) - Colonoscopy 06/26/[address] Chung - Pt to receive next dose of Remicade 06/28/17 - Pt still receiving IV steroids. Will need to change to PO steroids and observe clinical response prior to discharge. - DVT prophylaxis - Cont. supportive care (2) Acute Crohn's disease with complication ICD Codes: K50.919 - Crohn's disease, unspecified, with unspecified complications Status: Acute Plan: as above. Juan Alberto Craig DO Jun 25, 2017 18:06
[2017-06-25] MEDS: FAT EMULSION 20% INJ 250 ML (@10 mls/hr) IV-CENTRAL SCH (19:49)
[2017-06-26] VITALS (7 sets, daily range): BP systolic 133–143; BP diastolic 79–95; PULSE 68–93; RESP 17–19; TEMP 97.7–98.1; O2SAT 96–98
[2017-06-26] MEDS: ONDANSETRON HCL 4 MG/2 ML VIAL IVP PRN ×4 (00:54→20:46)
[2017-06-26] MEDS: HYDROmorphone HCL PF 0.5 MG/0.5 ML SYRINGE IV PUSH PRN ×4 (00:56→18:29)
[2017-06-26] MEDS: NS + KCL 20 MEQ INJ 1,000 ML IV SCH (03:36)
[2017-06-26] MEDS: LORazepam 2 MG/ML VIAL IV PUSH PRN ×3 (04:35→23:26)
[2017-06-26 04:59] LABS: AUTOMATED NEUTROPHIL # 16.1 TH/MM3 (1.8-7.7); BASOPHIL # 0.1 TH/MM3 (0-0.2); BASOPHIL % 0.3 % (0.0-2.0); HEMATOCRIT 36.8 % (39.0-51.0); HEMOGLOBIN 12.3 GM/DL (13.0-17.0); LYMPH % 4.6 % (9.0-44.0); LYMPHOCYTE # 0.8 TH/MM3 (1.0-4.8); MEAN CELL VOLUME 90.7 FL (80.0-100.0); MEAN CORPUSCULAR HEMOGLOBIN 30.4 PG (27.0-34.0); MEAN CORPUSCULAR HGB CONC 33.5 % (32.0-36.0); MEAN PLATELET VOLUME 7.3 FL (7.0-11.0); MONO % 4.7 % (0.0-8.0); MONOCYTE # 0.8 TH/MM3 (0-0.9); NEUT % 90.4 % (16.0-70.0); PLATELET COUNT 335 TH/MM3 (150-450); RED BLOOD COUNT 4.06 MIL/MM3 (4.50-5.90); RED CELL DISTRIBUTION WIDTH 13.8 % (11.6-17.2); WHITE BLOOD COUNT 17.8 TH/MM3 (4.0-11.0)
[2017-06-26 05:10] LABS: BICARBONATE 30.9 MEQ/L (21.0-32.0); CALCIUM 8.4 MG/DL (8.5-10.1); CREATININE 0.46 MG/DL (0.60-1.30)
[2017-06-26] MEDS: methylPREDNISolone SOD SUCC 40 MG/1 ML VIAL IV PUSH SCH ×4 (05:37→23:26)
[2017-06-26] MEDS: BISACODYL 10 MG SUPP RECTAL SCH (09:00)
[2017-06-26] MEDS: DOCUSATE SODIUM 50 MG/SENNA 8.6 MG TAB PO SCH ×2 (09:00→20:49)
[2017-06-26] MEDS: SODIUM CHLORIDE 0.9% FLUSH 10 ML FLUSH IV FLUSH SCH ×3 (09:00→20:47)
--- NOTE | 2017-06-26 11:07 | PD.PROCEDR ---
GI Procedure PROCEDURE PERFORMED Colonoscopy with biopsy INDICATION FOR PROCEDURE History of Crohn disease, questionable stenosis at the anastomosis PROCEDURE: The procedure, risks and benefits were discussed with Mr. Rose and informed consent was obtained. Anesthesia sedated him with Diprivan. He was placed in the left lateral decubitus position. Colonoscopy: The Pentax videoscope was introduced through the rectum and advanced to surgical anastomosis, there was few ulcerations at the side of the anastomosis biopsy was done, I was able to pass the anastomosis without difficulty. The scope was withdrawn back to the rectum retroflexion was performed in the rectum. Colonic prep was good ESTIMATED BLOOD LOSS: None SPECIMENS REMOVED: Surgical anastomosis from the colon and small bowel COMPLICATIONS: None IMPRESSION: The colon mucosa was normal Anastomosis was wide open There were a few small ulcers at the anastomosis biopsy was done PLAN: Continue current medication with Remicade May feed patient Await biopsy result Follow-up with Dr. Hernandez as an outpatient in 1-2 weeks We will sign off at this Temitope Chung MD Jun 26, 2017 11:07
--- NOTE | 2017-06-26 11:08 | HHI.GIFU ---
Subjective Remarks Patient laying in bed, seems to be comfortable, tolerated to prep, no abdominal pain today Objective Vitals I&O Vital Signs Date Time Temp Pulse Resp B/P (MAP) Pulse Ox O2 Delivery O2 Flow Rate FiO2 06/26/17 08:00 97.9 80 18 136/92 (107) 98 06/26/17 04:01 68 06/26/17 04:00 98.1 85 17 143/82 (102) 96 06/26/17 01:26 18 06/26/17 00:00 93 06/26/17 00:00 98.1 82 17 143/84 (103) 96 06/25/17 20:00 98.1 94 17 149/93 (111) 94 06/25/17 19:59 92 06/25/17 18:00 98.7 120 18 155/97 (116) 95 06/25/17 17:04 06/25/17 15:05 84 06/25/17 13:40 06/25/17 12:42 97.8 80 17 139/82 (101) 99 I/O 06/25/17 06/25/17 06/25/17 06/26/17 06/26/17 06/26/17 07:00 15:00 23:00 07:00 15:00 23:00 Intake Total 1000 ml 136 ml 2335.1 ml 1000 ml Output Total 1000 ml 1150 ml 300 ml Balance 0 ml 136 ml 1185.1 ml 1000 ml -300 ml Intake Oral 0 ml 1080 ml 0 ml IV Total 1000 ml 136 ml 1255.1 ml 1000 ml Output Urine Total 1000 ml 1150 ml 300 ml # Voids 4 1 # Bowel Movements 0 0 4 Laboratory Laboratory Tests Test 06/26/17 04:30 White Blood Count 17.8 Red Blood Count 4.06 Hemoglobin 12.3 Hematocrit 36.8 Mean Corpuscular Volume 90.7 Mean Corpuscular Hemoglobin 30.4 Mean Corpuscular Hemoglobin Concent 33.5 Red Cell Distribution Width 13.8 Platelet Count 335 Mean Platelet Volume 7.3 Neutrophils (%) (Auto) 90.4 Lymphocytes (%) (Auto) 4.6 Monocytes (%) (Auto) 4.7 Eosinophils (%) (Auto) 0.0 Basophils (%) (Auto) 0.3 Neutrophils # (Auto) 16.1 Lymphocytes # (Auto) 0.8 Monocytes # (Auto) 0.8 Eosinophils # (Auto) 0.0 Basophils # (Auto) 0.1 CBC Comment DIFF FINAL Differential Comment Blood Urea Nitrogen 11 Creatinine 0.46 Random Glucose 115 Calcium Level 8.4 Magnesium Level 2.0 Sodium Level 143 Potassium Level 3.8 Chloride Level 106 Carbon Dioxide Level 30.9 Anion Gap 6 Estimat Glomerular Filtration Rate 208 Physical Exam HEENT: Normocephalic; atraumatic, CHEST: Even/unlabored CARDIAC: RRR ABDOMEN: Not distended, nontender to light palpation, BS + EXTREMITIES: No clubbing, cyanosis, or edema. SKIN: Normal; no rash; no jaundice. CONSTRUCTION RECRUITER: No focal deficits; alert and oriented times three. Assessment and Plan Assessment: (1) Acute Crohn's disease with complication ICD Codes: K50.919 - Crohn's disease, unspecified, with unspecified complications Status: Acute Plan Patient was seen and examined, history of Crohn disease, started on Remicade, had colonoscopy today IMPRESSION: The colon mucosa was normal Anastomosis was wide open There were a few small ulcers at the anastomosis biopsy was done PLAN: Continue current medication with Remicade May feed patient Await biopsy result Follow-up with Dr. Hernandez as an outpatient in 1-2 weeks We will sign off at this Temitope Chung MD Jun 26, 2017 11:08
[2017-06-26] MEDS ORDERED: MIDAZOLAM HCL 2 MG/2 ML VIAL ONE (11:10)
[2017-06-26] MEDS ORDERED: PROPOFOL 200 MG/20 ML AMP IV ONE (12:00)
[2017-06-26] MEDS ORDERED: LIDOCAINE HCL 1% PF 5 ML SYRINGE OTHER ONE (12:00)
[2017-06-26] MEDS: AMINO ACID IV-CENTRAL SCH ×6 (12:01→23:26)
[2017-06-26] MEDS: [UNRECOGNIZED DRUG - OTHER] IV-CENTRAL SCH ×6 (12:01→23:26)
[2017-06-26] MEDS: MULTIVITAMIN IV-CENTRAL SCH ×6 (12:01→23:26)
[2017-06-26] MEDS: FOLIC ACID IV-CENTRAL SCH ×6 (12:01→23:26)
[2017-06-26] MEDS: ALVIMOPAN 12 MG CAPSULE PO SCH ×2 (12:07→20:49)
[2017-06-26] MEDS ORDERED: HYDROmorphone HCL PF 1 MG/ML VIAL IV PUSH ONE (12:15)
--- NOTE | 2017-06-26 15:01 | HHI.PR ---
Subjective Remarks Patient seen s/p colonoscopy c/o pain after colonoscopy Objective Vitals Vital Signs Date Time Temp Pulse Resp B/P (MAP) Pulse Ox O2 Delivery O2 Flow Rate FiO2 06/26/17 12:00 97.8 71 19 143/80 (101) 97 06/26/17 11:22 97.2 71 16 133/90 (104) 100 06/26/17 08:00 97.9 80 18 136/92 (107) 98 06/26/17 04:01 68 06/26/17 04:00 98.1 85 17 143/82 (102) 96 06/26/17 01:26 18 06/26/17 00:00 93 06/26/17 00:00 98.1 82 17 143/84 (103) 96 06/25/17 20:00 98.1 94 17 149/93 (111) 94 06/25/17 19:59 92 06/25/17 18:00 98.7 120 18 155/97 (116) 95 06/25/17 17:04 06/25/17 15:05 84 06/26/17 06/26/17 06/27/17 14:59 22:59 06:59 Output Total 300 ml Balance -300 ml Output Urine Total 300 ml # Voids 1 Result Diagram: 06/26/17 0430 06/26/17 0430 Other Results Laboratory Tests Test 06/26/17 04:30 White Blood Count 17.8 TH/MM3 Red Blood Count 4.06 MIL/MM3 Hemoglobin 12.3 GM/DL Hematocrit 36.8 % Mean Corpuscular Volume 90.7 FL Mean Corpuscular Hemoglobin 30.4 PG Mean Corpuscular Hemoglobin Concent 33.5 % Red Cell Distribution Width 13.8 % Platelet Count 335 TH/MM3 Mean Platelet Volume 7.3 FL Neutrophils (%) (Auto) 90.4 % Lymphocytes (%) (Auto) 4.6 % Monocytes (%) (Auto) 4.7 % Eosinophils (%) (Auto) 0.0 % Basophils (%) (Auto) 0.3 % Neutrophils # (Auto) 16.1 TH/MM3 Lymphocytes # (Auto) 0.8 TH/MM3 Monocytes # (Auto) 0.8 TH/MM3 Eosinophils # (Auto) 0.0 TH/MM3 Basophils # (Auto) 0.1 TH/MM3 CBC Comment DIFF FINAL Differential Comment Blood Urea Nitrogen 11 MG/DL Creatinine 0.46 MG/DL Random Glucose 115 MG/DL Calcium Level 8.4 MG/DL Magnesium Level 2.0 MG/DL Sodium Level 143 MEQ/L Potassium Level 3.8 MEQ/L Chloride Level 106 MEQ/L Carbon Dioxide Level 30.9 MEQ/L Anion Gap 6 MEQ/L Estimat Glomerular Filtration Rate 208 ML/MIN Imaging Last Impressions Enema w/Water Soluble 06/23/17 0900 Signed Impressions: Service Date/Time: Friday, June 23, 2017 09:16 - CONCLUSION: Unremarkable Gastrografin enema. Pramod Chavez MD Abdomen X-Ray 06/21/17 0800 Signed Impressions: Service Date/Time: Wednesday, June 21, 2017 08:56 - CONCLUSION: Normal examination. Pramod Chavez MD Small Bowel X-Ray 06/21/17 0000 Signed Impressions: Service Date/Time: Wednesday, June 21, 2017 14:46 - CONCLUSION: Unremarkable small bowel examination. Pramod Chavez MD Abdomen/Pelvis CT 06/19/17 0800 Signed Impressions: Service Date/Time: Monday, June 19, 2017 11:52 - CONCLUSION: 1. Extensive wall thickening of the terminal ileum consistent with patient's known Crohn's disease. No pericolonic fluid collections or abscess. No significant inflammatory changes. 2. No bowel obstruction. Paolo Monroy MD Objective Remarks GENERAL: This is a thin 37 year old male patient with NG tube CARDIO: Regular RESP: CTA bilaterally. ABD: +BS, soft, nondistended, non-tender EXT: Extremities without clubbing, cyanosis, or edema. Procedures Colonoscopy 06/26/[address] Soliz A/P Problem List: (1) Small bowel obstruction ICD Codes: K56.609 - Unspecified intestinal obstruction, unspecified as to partial versus complete obstruction Status: Acute Plan: - comgmt with General Surgery and GI - Pt is a 37 y/o male with long history of Crohn's disease s/p previous ileocolonic resection and primary anastomosis with recurrent ulceration causing small bowel obstruction. - TPN - areas of severe inflammation on CT. No relistor at this time. - CT A/P (06/19) - Extensive wall thickening of the terminal ileum consistent with patient's known Crohn's - No pericolonic fluid collections or abscess. No significant inflammatory - KUB (06/19) - contrast and gas seen throughout non-dilated colon - Pt is on IV Solu-Medrol 40mg Q6H (06/13 - present) - IV Flagyl (06/13 - present) - IV Cipro (06/13 - present) - Pt started on Remicade on 06/14/17. GI recommending that pt may need repeat Remicade at 2 and 6 weeks - NGT clamped on 06/19 with trial of clears. NGT resumed to LIWS d/t increased abd pain and nausea - NGT again clamped again (06/20) to (06/21). Increased discomfort following trial of clear. Resume LIWS and reclamp in 2 hours. - NGT tube removed (06/23) - Pt had BM 06/23/17 - Dilaudid. Decrease frequency to q6h & following colonoscopy will try to wean completely off IV dilaudid - Entereg - Encourage ambulation - Case d/w with Dr. Sawant on 06/21. Pt examined and interviewed together with Dr. Sawant at the bedside - Case d/w GI, Dr. Carlson (06/20) - Case discussed between Dr. Sawant and Dr. Carlson (06/21) - Gastrografin small bowel follow through (06/21) --> unremarkable - Gastrografin enema (06/23) --> unremarkable - Pt tolerating clear diet, will advance today (06/24) to full liquid diet - following colonoscopy will try to advance to soft diet - Case d/w Dr. Sawant (06/23/17) - Colonoscopy 06/26/[address] Chung The colon mucosa was normal Anastomosis was wide open There were a few small ulcers at the anastomosis biopsy was done PLAN: Continue current medication with Remicade May feed patient Await biopsy result Follow-up with Dr. Hernandez as an outpatient in 1-2 weeks GI signed off - Pt to receive next dose of Remicade 06/28/17 - Pt still receiving IV steroids. Will need to change to PO steroids and observe clinical response prior to discharge. (plan to change to PO tomorrow) - If patient able to tolerate diet plan to start weaning TPN tomorrow in preparation for DC Monday/ - DVT prophylaxis - Cont. supportive care (2) Acute Crohn's disease with complication ICD Codes: K50.919 - Crohn's disease, unspecified, with unspecified complications Status: Acute Plan: as above. Assessment and Plan Patient examined. Assessment and plan formulated with Clary Whitmore PA-C. I agree with the above. advance diet. if tolerating then start tpn wean tomorrow cont steroids then taper. plan for next remicade infusion Wed. prior to d/c home. Clary Whitmore Jun 26, 2017 15:01 Jose M Emerson MD Jun 26, 2017 18:20
[2017-06-26] MEDS: FAT EMULSION 20% INJ 250 ML (@10 mls/hr) IV-CENTRAL SCH (20:52)
[2017-06-27] VITALS (8 sets, daily range): BP systolic 123–139; BP diastolic 74–92; PULSE 80–102; RESP 16–18; TEMP 97.4–98.7; O2SAT 95–98
[2017-06-27] MEDS: HYDROmorphone HCL PF 0.5 MG/0.5 ML SYRINGE IV PUSH PRN ×5 (00:59→22:24)
[2017-06-27] MEDS: NS + KCL 20 MEQ INJ 1,000 ML IV SCH (05:56)
[2017-06-27] MEDS: methylPREDNISolone SOD SUCC 40 MG/1 ML VIAL IV PUSH SCH ×3 (05:56→22:23)
[2017-06-27] MEDS: DOCUSATE SODIUM 50 MG/SENNA 8.6 MG TAB PO SCH ×2 (08:02→19:59)
[2017-06-27] MEDS: ONDANSETRON HCL 4 MG/2 ML VIAL IVP PRN ×3 (08:02→20:00)
[2017-06-27] MEDS: ALVIMOPAN 12 MG CAPSULE PO SCH ×2 (08:02→19:59)
[2017-06-27] MEDS: BISACODYL 10 MG SUPP RECTAL SCH (08:02)
[2017-06-27] MEDS: SODIUM CHLORIDE 0.9% FLUSH 10 ML FLUSH IV FLUSH SCH ×3 (08:03→19:59)
--- NOTE | 2017-06-27 09:54 | HHI.PR ---
Subjective Remarks Patient reports eating only four bites of dinner last night, then felt fullness and now c/o pressure type sensation LLQ Objective Vitals Vital Signs Date Time Temp Pulse Resp B/P (MAP) Pulse Ox O2 Delivery O2 Flow Rate FiO2 06/27/17 08:00 98.6 95 18 139/87 (104) 97 06/27/17 04:00 97.4 88 17 123/83 (96) 98 06/27/17 04:00 80 06/27/17 00:06 84 06/27/17 00:00 97.7 84 18 135/80 (98) 95 06/26/17 20:00 98.0 88 19 143/95 (111) 98 06/26/17 16:00 97.7 88 19 133/79 (97) 98 06/26/17 12:00 97.8 71 19 143/80 (101) 97 06/26/17 11:22 97.2 71 16 133/90 (104) 100 Result Diagram: 06/26/17 0430 06/26/17 0430 Other Results Laboratory Tests Test 06/26/17 04:30 White Blood Count 17.8 TH/MM3 Red Blood Count 4.06 MIL/MM3 Hemoglobin 12.3 GM/DL Hematocrit 36.8 % Mean Corpuscular Volume 90.7 FL Mean Corpuscular Hemoglobin 30.4 PG Mean Corpuscular Hemoglobin Concent 33.5 % Red Cell Distribution Width 13.8 % Platelet Count 335 TH/MM3 Mean Platelet Volume 7.3 FL Neutrophils (%) (Auto) 90.4 % Lymphocytes (%) (Auto) 4.6 % Monocytes (%) (Auto) 4.7 % Eosinophils (%) (Auto) 0.0 % Basophils (%) (Auto) 0.3 % Neutrophils # (Auto) 16.1 TH/MM3 Lymphocytes # (Auto) 0.8 TH/MM3 Monocytes # (Auto) 0.8 TH/MM3 Eosinophils # (Auto) 0.0 TH/MM3 Basophils # (Auto) 0.1 TH/MM3 CBC Comment DIFF FINAL Differential Comment Blood Urea Nitrogen 11 MG/DL Creatinine 0.46 MG/DL Random Glucose 115 MG/DL Calcium Level 8.4 MG/DL Magnesium Level 2.0 MG/DL Sodium Level 143 MEQ/L Potassium Level 3.8 MEQ/L Chloride Level 106 MEQ/L Carbon Dioxide Level 30.9 MEQ/L Anion Gap 6 MEQ/L Estimat Glomerular Filtration Rate 208 ML/MIN Imaging Last Impressions Enema w/Water Soluble 06/23/17 0900 Signed Impressions: Service Date/Time: Friday, June 23, 2017 09:16 - CONCLUSION: Unremarkable Gastrografin enema. Pramod Chavez MD Abdomen X-Ray 06/21/17 0800 Signed Impressions: Service Date/Time: Wednesday, June 21, 2017 08:56 - CONCLUSION: Normal examination. Pramod Chavez MD Small Bowel X-Ray 06/21/17 0000 Signed Impressions: Service Date/Time: Wednesday, June 21, 2017 14:46 - CONCLUSION: Unremarkable small bowel examination. Pramod Chavez MD Abdomen/Pelvis CT 06/19/17 0800 Signed Impressions: Service Date/Time: Monday, June 19, 2017 11:52 - CONCLUSION: 1. Extensive wall thickening of the terminal ileum consistent with patient's known Crohn's disease. No pericolonic fluid collections or abscess. No significant inflammatory changes. 2. No bowel obstruction. Paolo Monroy MD Objective Remarks GENERAL: This is a thin 37 year old male patient with NG tube CARDIO: Regular RESP: CTA bilaterally. ABD: +BS, soft, nondistended, non-tender EXT: Extremities without clubbing, cyanosis, or edema. Procedures Colonoscopy 06/26/[address] Soliz A/P Problem List: (1) Small bowel obstruction ICD Codes: K56.609 - Unspecified intestinal obstruction, unspecified as to partial versus complete obstruction Status: Acute Plan: - comgmt with General Surgery and GI - Pt is a 37 y/o male with long history of Crohn's disease s/p previous ileocolonic resection and primary anastomosis with recurrent ulceration causing small bowel obstruction. - TPN - areas of severe inflammation on CT. No Relistor at this time. - CT A/P (06/19) - Extensive wall thickening of the terminal ileum consistent with patient's known Crohn's - No pericolonic fluid collections or abscess. No significant inflammatory - KUB (06/19) - contrast and gas seen throughout non-dilated colon - Pt is on IV Solu-Medrol 40mg Q6H (06/13 - present) - IV Flagyl (06/13 - present) - IV Cipro (06/13 - present) - Pt started on Remicade on 06/14/17. GI recommending that pt may need repeat Remicade at 2 and 6 weeks - NGT clamped on 06/19 with trial of clears. NGT resumed to LIWS d/t increased abd pain and nausea - NGT again clamped again (06/20) to (06/21). Increased discomfort following trial of clear. Resume LIWS and reclamp in 2 hours. - NGT tube removed (06/23) - Pt had BM 06/23/17 - Dilaudid. Decrease frequency to q6h & following colonoscopy will try to wean completely off IV dilaudid - Entereg - Encourage ambulation - Case d/w with Dr. Sawant on 06/21. Pt examined and interviewed together with Dr. Sawant at the bedside - Case d/w GI, Dr. Carlson (06/20) - Case discussed between Dr. Sawant and Dr. Carlson (06/21) - Gastrografin small bowel follow through (06/21) --> unremarkable - Gastrografin enema (06/23) --> unremarkable - Pt tolerating clear diet, will advance today (06/24) to full liquid diet - following colonoscopy will try to advance to soft diet - Case d/w Dr. Sawant (06/23/17) - Colonoscopy 06/26/[address] Chung The colon mucosa was normal Anastomosis was wide open There were a few small ulcers at the anastomosis biopsy was done PLAN: Continue current medication with Remicade May feed patient Await biopsy result Follow-up with Dr. Hernandez as an outpatient in 1-2 weeks GI signed off - Pt to receive next dose of Remicade 06/28/17 - DC IV steroid start prednisone 30 mg PO BID - 06/27 patient c/o pressure sensation LLQ, has not had flatus today. - Not tolerating PO intake - has continued pain after colonoscopy - Will reconsult GI - encourage ambulation - DVT prophylaxis - Cont. supportive care (2) Acute Crohn's disease with complication ICD Codes: K50.919 - Crohn's disease, unspecified, with unspecified complications Status: Acute Plan: as above. Assessment and Plan Patient examined. Assessment and plan formulated with Clary Stackpole PA-C. I agree with the above. begging for more pain meds. says persistent abdomen pain after c scope unable to advance diet with n/v. cont tpn/steroids/ remicade tomorrow. will ask GI to eval persistent pain and now unable to emmanuel po .... Pt says he would prefer to procede with surgery if GI feels he has failed medical therapy. Clary Whitmore June 27, 2017 09:54 Jose M Emerson MD June 27, 2017 18:34
[2017-06-27] MEDS: LORazepam 2 MG/ML VIAL IV PUSH PRN ×3 (09:58→23:53)
[2017-06-27] MEDS: MULTIVITAMIN IV-CENTRAL SCH ×6 (11:15→22:23)
[2017-06-27] MEDS: AMINO ACID IV-CENTRAL SCH ×6 (11:15→22:23)
[2017-06-27] MEDS: [UNRECOGNIZED DRUG - OTHER] IV-CENTRAL SCH ×6 (11:15→22:23)
[2017-06-27] MEDS: FOLIC ACID IV-CENTRAL SCH ×6 (11:15→22:23)
[2017-06-27] MEDS: FAT EMULSION 20% INJ 250 ML (@10 mls/hr) IV-CENTRAL SCH (20:00)
[2017-06-27] MEDS ORDERED: predniSONE 20 MG TAB PO SCH (21:00)
[2017-06-28] VITALS (13 sets, daily range): BP systolic 132–152; BP diastolic 78–96; PULSE 78–117; RESP 17–22; TEMP 97.8–98.6; O2SAT 95–98
[2017-06-28] MEDS: HYDROmorphone HCL PF 0.5 MG/0.5 ML SYRINGE IV PUSH PRN ×4 (02:31→18:12)
[2017-06-28] MEDS: methylPREDNISolone SOD SUCC 40 MG/1 ML VIAL IV PUSH SCH ×3 (05:56→16:45)
[2017-06-28] MEDS: LORazepam 2 MG/ML VIAL IV PUSH PRN ×3 (05:56→20:12)
[2017-06-28] MEDS: NS + KCL 20 MEQ INJ 1,000 ML IV SCH (05:59)
[2017-06-28] MEDS: SODIUM CHLORIDE 0.9% FLUSH 10 ML FLUSH IV FLUSH SCH ×3 (07:19→20:18)
[2017-06-28] MEDS: DOCUSATE SODIUM 50 MG/SENNA 8.6 MG TAB PO SCH ×2 (07:55→20:12)
[2017-06-28] MEDS: BISACODYL 10 MG SUPP RECTAL SCH (07:55)
[2017-06-28] MEDS: ONDANSETRON HCL 4 MG/2 ML VIAL IVP PRN ×3 (08:33→23:11)
[2017-06-28] MEDS: AMINO ACID IV-CENTRAL SCH ×3 (10:44)
[2017-06-28] MEDS: [UNRECOGNIZED DRUG - OTHER] IV-CENTRAL SCH ×3 (10:44)
[2017-06-28] MEDS: MULTIVITAMIN IV-CENTRAL SCH ×3 (10:44)
[2017-06-28] MEDS: FOLIC ACID IV-CENTRAL SCH ×3 (10:44)
--- NOTE | 2017-06-28 11:17 | HHI.PR ---
Subjective Remarks Pt still with left sided abdominal pain No flatus, no BM since the colon prep Passed a small amount of mucous from the rectum this morning Afebrile Pt doesn't feel as distended but still requiring IV pain meds, IV steroids and TPN He is eating some liquids but has significant pain with any PO intake Objective Vitals Vital Signs Date Time Temp Pulse Resp B/P (MAP) Pulse Ox O2 Delivery O2 Flow Rate FiO2 06/28/17 08:00 97.8 117 17 137/90 (106) 98 06/28/17 04:00 78 06/28/17 00:00 93 06/28/17 00:00 97.8 83 17 133/79 (97) 97 06/27/17 20:00 98.3 93 17 134/79 (97) 96 06/27/17 16:30 83 06/27/17 16:00 98.7 102 16 138/92 (107) 96 06/27/17 12:00 98.0 98 16 130/74 (92) 97 Result Diagram: 06/26/17 0430 06/26/17 0430 Imaging Last Impressions Enema w/Water Soluble 06/23/17 0900 Signed Impressions: Service Date/Time: Friday, June 23, 2017 09:16 - CONCLUSION: Unremarkable Gastrografin enema. Pramod Chavez MD Abdomen X-Ray 06/21/17 0800 Signed Impressions: Service Date/Time: Wednesday, June 21, 2017 08:56 - CONCLUSION: Normal examination. Pramod Chavez MD Small Bowel X-Ray 06/21/17 0000 Signed Impressions: Service Date/Time: Wednesday, June 21, 2017 14:46 - CONCLUSION: Unremarkable small bowel examination. Pramod Chavez MD Abdomen/Pelvis CT 06/19/17 0800 Signed Impressions: Service Date/Time: Monday, June 19, 2017 11:52 - CONCLUSION: 1. Extensive wall thickening of the terminal ileum consistent with patient's known Crohn's disease. No pericolonic fluid collections or abscess. No significant inflammatory changes. 2. No bowel obstruction. Paolo Monroy MD Objective Remarks GENERAL: This is a thin 37 year old male patient CARDIO: Regular RESP: CTA bilaterally. ABD: +BS, soft, nondistended, left sided tenderness EXT: Extremities without clubbing, cyanosis, or edema. Procedures Colonoscopy 06/26/[address] Soliz A/P Problem List: (1) Small bowel obstruction ICD Codes: K56.609 - Unspecified intestinal obstruction, unspecified as to partial versus complete obstruction Status: Acute Plan: - comgmt with General Surgery and GI - Pt is a 37 y/o male with long history of Crohn's disease s/p previous ileocolonic resection and primary anastomosis with recurrent ulceration causing small bowel obstruction. - TPN - areas of severe inflammation on CT. No Relistor at this time. - CT A/P (06/19) - Extensive wall thickening of the terminal ileum consistent with patient's known Crohn's - No pericolonic fluid collections or abscess. No significant inflammatory - KUB (06/19) - contrast and gas seen throughout non-dilated colon - Pt is on IV Solu-Medrol 40mg Q6H (06/13 - present) - IV Flagyl (06/13 - present) - IV Cipro (06/13 - present) - Pt started on Remicade on 06/14/17. GI recommending that pt may need repeat Remicade at 2 and 6 weeks - NGT clamped on 06/19 with trial of clears. NGT resumed to LIWS d/t increased abd pain and nausea - NGT again clamped again (06/20) to (06/21). Increased discomfort following trial of clear. urs. - NGT tube removed (06/23) - Pt had BM 06/23/17 - Dilaudid. Frequency decreased to q6h following colonoscopy but pain was severe and frequence was increased back to Q4H on 06/27 - Pt received 15 doses of Entereg - Encourage ambulation - Gastrografin small bowel follow through (06/21) --> unremarkable - Gastrografin enema (06/23) --> unremarkable - Colonoscopy 06/26/[address] Chung The colon mucosa was normal Anastomosis was wide open There were a few small ulcers at the anastomosis biopsy was done PLAN: Continue current medication with Remicade May feed patient Await biopsy result Follow-up with Dr. Hernandez as an outpatient in 1-2 weeks GI signed off - Pt to receive next dose of Remicade 06/28/17 - Tried to DC IV steroid and start prednisone 30 mg PO BID but IV steroids was resumed on 06/27 due to c/o pressure sensation LLQ and no flatus - Not tolerating PO intake - has continued pain after colonoscopy - GI reconsulted on 06/27 - Pt needs orders from GI for Remicade infusion for today - Pt continues to have persistent pain and unable to tolerate liquid diet as he is still having significant pain with any po intake - Pt says he would prefer to proceed with surgery if GI feels he has failed medical therapy ?CRS consultation - Encourage ambulation - DVT prophylaxis - Cont. supportive care (2) Acute Crohn's disease with complication ICD Codes: K50.919 - Crohn's disease, unspecified, with unspecified complications Status: Acute Plan: as above. Assessment and Plan Patient examined. Assessment and plan formulated with Alexa Ramos PA-C. I agree with the above. crohns dz with obstruction. remicade second dose planned for tomorrow on tpn. unable to advance diet. pt not tolerating. c/o no flatus or bm on narcotic pain meds. Pt eager to speak with GI and determine if medical management has failed and if he needs to pursue surgical option. will await gi consultation. Alexa Ramos June 28, 2017 11:17 Jose M Emerson MD June 28, 2017 13:17
--- NOTE | 2017-06-28 14:42 | HHI.GIFU ---
Subjective Remarks sitting up in front morris, ambulating out of room. Has some LLQ pain which is different from previous pain. afebrile discussed Remicade therapy for tomorrow. No further BMs. (Alanna Freitas) Objective Vitals I&O Vital Signs Date Time Temp Pulse Resp B/P (MAP) Pulse Ox O2 Delivery O2 Flow Rate FiO2 06/28/17 12:00 98.5 97 17 145/96 (112) 95 06/28/17 08:00 97.8 117 17 137/90 (106) 98 06/28/17 04:00 78 06/28/17 00:00 93 06/28/17 00:00 97.8 83 17 133/79 (97) 97 06/27/17 20:00 98.3 93 17 134/79 (97) 96 06/27/17 16:30 83 06/27/17 16:00 98.7 102 16 138/92 (107) 96 I/O 06/27/17 06/27/17 06/27/17 06/28/17 06/28/17 06/28/17 07:00 15:00 23:00 07:00 15:00 23:00 Intake Total 1245.1 ml 480 ml 1000 ml Output Total 1850 ml 2250 ml 900 ml Balance -604.9 ml -1770 ml 100 ml Intake Oral 240 ml 480 ml IV Total 1005.1 ml 1000 ml Output Urine Total 1850 ml 2250 ml 900 ml # Bowel Movements 0 Imaging Last Impressions Enema w/Water Soluble 06/23/17 0900 Signed Impressions: Service Date/Time: Friday, June 23, 2017 09:16 - CONCLUSION: Unremarkable Gastrografin enema. Pramod Chavez MD Abdomen X-Ray 06/21/17 0800 Signed Impressions: Service Date/Time: Wednesday, June 21, 2017 08:56 - CONCLUSION: Normal examination. Pramod Chavez MD Small Bowel X-Ray 06/21/17 0000 Signed Impressions: Service Date/Time: Wednesday, June 21, 2017 14:46 - CONCLUSION: Unremarkable small bowel examination. Pramod Chavez MD Abdomen/Pelvis CT 06/19/17 0800 Signed Impressions: Service Date/Time: Monday, June 19, 2017 11:52 - CONCLUSION: 1. Extensive wall thickening of the terminal ileum consistent with patient's known Crohn's disease. No pericolonic fluid collections or abscess. No significant inflammatory changes. 2. No bowel obstruction. Paolo Monroy MD Physical Exam HEENT: Normocephalic; atraumatic, CHEST: Even/unlabored , no SOB CARDIAC: RRR ABDOMEN: No distention, LLQ discomfort off and on, BS + EXTREMITIES: No clubbing, cyanosis, or edema. SKIN: Normal; no rash; no jaundice. COIL TIER: No focal deficits; alert and oriented times three. (Alanna Freitas) Assessment and Plan Assessment: (1) Acute Crohn's disease with complication ICD Codes: K50.919 - Crohn's disease, unspecified, with unspecified complications Status: Acute Plan History of Crohn's disease, initially patient had no BM for approximately 12 days, no bowel movement since his colonoscopy. No BMs over the last few days, abdominal pain which had resolved but now moved down into the left lower quadrant. Patient had been evaluated and followed per general surgery but no surgical interventions this admission. Patient had NG tube for over a week but that has now been DC'd. Gradual improvement noted, plan has been for patient to receive Remicade dose tomorrow. Currently continues with TPN to assist with his nutritional support 06/20/2017, patient became mildly distended and uncomfortable last p.m. after x- ray was done. Unclamped with approximately 800 cc return according to nurse. Currently NGT is been clamped all day and patient states that he was able to take double the p.o. fluids today and had minimal cramping or distention.: X- ray shows nondilated colon. Patient has had daily Dulcolax suppositories on 423 and 424 without results but feels like he has an occasional urge to defecate which passes. Currently patient is passing no gas. Appreciate general surgery input 06/21/2017, patient not feeling as good today, but has been able to tolerate NG without clamping for greater than 24 hours. Multiple fleets enema is given with only return of fluid with a brown color according to patient. Patient is pending reevaluation of general surgery and is reconciled to the possibility of surgical needs. Supportive care given. Last hemoglobin checked 12.2. Right lower quadrant is his chief complaint of dull pain worse with light palpation. 06/22/2017, small bowel follow-through exam unremarkable. Was seen per Dr. Sawant general surgeon who told patient no obstruction, no need for surgical intervention at this time. Patient is still taking daily Dulcolax suppository, but still no bowel movement yet. Colon Continues with minimal motility, patient is continuing to drink clear liquids on a limited basis Patient did have dose of Remicade, on 06-1406/23/2017 patient had 2 soapsuds enemas and a Gastrografin enema this a.m which was unremarkable.. Brown water returned with subset enemas but no solid stool 06/24/2017, patient did have 2 small putting consistent BMs on 06/24/2017. Patient still on clear liquids and tolerating fairly well. Discussion with Dr. Blackmon on 427 for slow prep over the weekend and pursue a colonoscopy with possible TIA dilation on Monday. NG tube was DC'd. Will discuss further if colonoscopy is still the plan for Monday since patient has had bowel movements. 06/25/17 pt tolerating small amts clears, still some nausea. pain much improved. BM yesterday. Pt requesting alternative GI doc to do colonoscopy 06/28/2017 patient was sitting out in the lounge area ambulating in the morris. States no further bowel movements since colonoscopy done on 06/26/2017. Gradual improvement noted overall and patient is due to receive Remicade dose in the morning. Patient notes some mild left lower quadrant pain which seems to wax and wane which is different from the previous abdominal pain he was having. This left lower quadrant pain could be related to some stool in the colon. Colonoscopy was done on 06/26/2017, The colon mucosa was normal Anastomosis was wide open, no stricture noted few small ulcers at the anastomosis biopsy was done PLAN: Diet as tolerated Dulcolax suppository in the morning Await biopsy results Remicade ordered for am Continue TPN for now Any further recommendations will be based on patient's symptom management After he is discharged from the hospital he will follow-up with Dr. reis to in 1-2 weeks Patient was seen per myself and Dr. Chung, note was written on his behalf (Alanna Freitas) Plan Patient was seen and examined, agree with above note, patient complaining of abdominal pain when he eats, I advised him try as much food as possible, he want to colorectal surgery consult, told him we will ask the primary team to order that tomorrow, I do not think he is a surgical candidate at this time since he only had one dose of Remicade and usually take 8-12 sometime up to 16 weeks for the medical management to respond, will defer pain management to the primary team and advised the patient that he need to be on the lowest possible dose because it can cause him more pain because of ileus (Temitope Chung MD) Alanna Freitas June 28, 2017 14:42 Temitope Chung MD June 28, 2017 21:59
[2017-06-28] MEDS ORDERED: SODIUM CHLOR 0.9% 250 ML IV PRN (17:15)
[2017-06-28] MEDS ORDERED: EPINEPHrine HCL (1:1000) 1 MG/ML VIAL OTHER PRN (17:15)
[2017-06-28] MEDS ORDERED: ALTEPLASE RECOMBINANT 2 MG VIAL IV FLUSH PRN (17:15)
[2017-06-28] MEDS ORDERED: diphenhydrAMINE HCL 50 MG/ML VIAL IV PUSH PRN (17:15)
[2017-06-28] MEDS ORDERED: HYDROCORTISONE SOD SUCCINATE 250 MG VIAL IV PUSH PRN (17:30)
[2017-06-28] MEDS ORDERED: SODIUM CHLOR 0.9% IV ONE (18:00)
[2017-06-28] MEDS ORDERED: INFLIXIMAB IV ONE (18:00)
[2017-06-28] MEDS ORDERED: ALTEPLASE RECOMBINANT 2 MG VIAL INTRACATH PRN (19:15)
[2017-06-28] MEDS ORDERED: HYDROCORTISONE SOD SUCCINATE 100 MG VIAL IV PUSH PRN (19:15)
[2017-06-28] MEDS: FAT EMULSION 20% INJ 250 ML (@10 mls/hr) IV-CENTRAL SCH (20:13)
[2017-06-28] MEDS: CLINIMIX 5/25 (Custom) 2000 mL- >42 mls/hr IV-CENTRAL SCH ×9 (20:13)
[2017-06-29] MEDS: methylPREDNISolone SOD SUCC 40 MG/1 ML VIAL IV PUSH SCH ×2 (00:01→06:40)
[2017-06-29] MEDS: HYDROmorphone HCL PF 0.5 MG/0.5 ML SYRINGE IV PUSH PRN ×4 (00:01→23:26)
[2017-06-29] MEDS: LORazepam 2 MG/ML VIAL IV PUSH PRN ×2 (02:08→09:12)
[2017-06-29 04:00] VITALS: BP 140/67; PULSE 110; RESP 17; TEMP 98.5; O2SAT 98
[2017-06-29] MEDS: BISACODYL 10 MG SUPP RECTAL SCH (07:25)
[2017-06-29] MEDS: DOCUSATE SODIUM 50 MG/SENNA 8.6 MG TAB PO SCH ×2 (07:25→20:20)
[2017-06-29] MEDS: SODIUM CHLORIDE 0.9% FLUSH 10 ML FLUSH IV FLUSH SCH ×3 (07:25→20:20)
[2017-06-29] MEDS: NS + KCL 20 MEQ INJ 1,000 ML IV SCH (07:26)
[2017-06-29 07:35] LABS: ALBUMIN 2.8 GM/DL (3.4-5.0); ALKALINE PHOSPHATASE 33 U/L (45-117); ALT (GPT) 26 U/L (12-78); AST (GOT) 21 U/L (15-37); BICARBONATE 28.6 MEQ/L (21.0-32.0); BLOOD UREA NITROGEN 12 MG/DL (7-18); CALCIUM 8.4 MG/DL (8.5-10.1); CHLORIDE 107 MEQ/L (98-107); CREATININE 0.44 MG/DL (0.60-1.30); GLOMERULAR FILTRATION RATE 219 ML/MIN (>89); GLUCOSE,RANDOM 91 MG/DL (74-106); SODIUM (NA) 142 MEQ/L (136-145); TOTAL BILIRUBIN ADULT 0.3 MG/DL (0.2-1.0); TOTAL PROTEIN 5.5 GM/DL (6.4-8.2)
[2017-06-29 08:00] VITALS: BP 135/79; PULSE 85; RESP 16; TEMP 97.8; O2SAT 97
[2017-06-29] MEDS ORDERED: BISACODYL 10 MG SUPP RECTAL SCH (09:00)
[2017-06-29] MEDS: ONDANSETRON HCL 4 MG/2 ML VIAL IVP PRN ×2 (09:12→18:34)
--- NOTE | 2017-06-29 11:37 | HHI.GIFU ---
Subjective Remarks Pt resting in bed, napping. Says abd pain is bilateral now. Feels "things moving" but denies passing flatus or stool. (Candace Pendleton) Objective Vitals I&O Vital Signs Date Time Temp Pulse Resp B/P (MAP) Pulse Ox O2 Delivery O2 Flow Rate FiO2 06/29/17 08:00 97.8 85 16 135/79 (97) 97 06/29/17 04:00 98.5 110 17 140/67 (91) 98 06/28/17 23:00 98.2 83 20 138/84 (102) 98 06/28/17 23:00 83 06/28/17 22:30 98.6 82 20 132/86 (101) 06/28/17 22:00 98.0 87 22 152/89 (110) 97 06/28/17 21:45 98.0 89 18 138/86 (103) 97 06/28/17 21:30 98.1 94 20 137/88 (104) 97 06/28/17 21:15 98.0 107 20 136/85 (102) 97 06/28/17 21:00 98.6 110 22 132/86 (101) 98 06/28/17 20:18 117 17 151/91 06/28/17 20:00 98.5 117 17 151/91 (111) 97 06/28/17 20:00 107 06/28/17 16:00 98.2 92 17 132/78 (96) 97 06/28/17 12:00 98.5 97 17 145/96 (112) 95 I/O 06/28/17 06/28/17 06/28/17 06/29/17 06/29/17 06/29/17 07:00 15:00 23:00 07:00 15:00 23:00 Intake Total 1000 ml 730 ml 1250 ml Output Total 900 ml 1700 ml 3240 ml Balance 100 ml -970 ml -1990 ml Intake Oral 480 ml 0 ml IV Total 1000 ml 250 ml 1250 ml Output Urine Total 900 ml 1700 ml 3240 ml # Bowel Movements 0 0 Laboratory Laboratory Tests Test 06/29/17 06:15 Blood Urea Nitrogen 12 Creatinine 0.44 Random Glucose 91 Total Protein 5.5 Albumin 2.8 Calcium Level 8.4 Alkaline Phosphatase 33 Aspartate Amino Transf (AST/SGOT) 21 Alanine Aminotransferase (ALT/SGPT) 26 Total Bilirubin 0.3 Sodium Level 142 Potassium Level 4.1 Chloride Level 107 Carbon Dioxide Level 28.6 Anion Gap 6 Estimat Glomerular Filtration Rate 219 Imaging Last Impressions Enema w/Water Soluble 06/23/17 0900 Signed Impressions: Service Date/Time: Friday, June 23, 2017 09:16 - CONCLUSION: Unremarkable Gastrografin enema. Pramod Chavez MD Abdomen X-Ray 06/21/17 0800 Signed Impressions: Service Date/Time: Wednesday, June 21, 2017 08:56 - CONCLUSION: Normal examination. Pramod Chavez MD Small Bowel X-Ray 06/21/17 0000 Signed Impressions: Service Date/Time: Wednesday, June 21, 2017 14:46 - CONCLUSION: Unremarkable small bowel examination. Pramod Chavez MD Abdomen/Pelvis CT 06/19/17 0800 Signed Impressions: Service Date/Time: Monday, June 19, 2017 11:52 - CONCLUSION: 1. Extensive wall thickening of the terminal ileum consistent with patient's known Crohn's disease. No pericolonic fluid collections or abscess. No significant inflammatory changes. 2. No bowel obstruction. Paolo Monroy MD Physical Exam HEENT: Normocephalic; atraumatic, CHEST: CTA CARDIAC: RRR ABDOMEN: mildly distended, TTP lower quadrants, BS hypoactive EXTREMITIES: No clubbing, cyanosis, or edema. SKIN: Normal; no rash; no jaundice. MULTI DISCIPLINED LANGUAGE ANALYST: No focal deficits; alert and oriented times three. (Candace Pendleton [facility]) Assessment and Plan Assessment: (1) Acute Crohn's disease with complication ICD Codes: K50.919 - Crohn's disease, unspecified, with unspecified complications Status: Acute Plan History of Crohn's disease, initially patient had no BM for approximately 12 days, no bowel movement since his colonoscopy. No BMs over the last few days, abdominal pain which had resolved but now moved down into the left lower quadrant. Patient had been evaluated and followed per general surgery but no surgical interventions this admission. Patient had NG tube for over a week but that has now been DC'd. Gradual improvement noted, plan has been for patient to receive Remicade dose tomorrow. Currently continues with TPN to assist with his nutritional support 06/20/2017, patient became mildly distended and uncomfortable last p.m. after x- ray was done. Unclamped with approximately 800 cc return according to nurse. Currently NGT is been clamped all day and patient states that he was able to take double the p.o. fluids today and had minimal cramping or distention.: X- ray shows nondilated colon. Patient has had daily Dulcolax suppositories on 423 and 424 without results but feels like he has an occasional urge to defecate which passes. Currently patient is passing no gas. Appreciate general surgery input 06/21/2017, patient not feeling as good today, but has been able to tolerate NG without clamping for greater than 24 hours. Multiple fleets enema is given with only return of fluid with a brown color according to patient. Patient is pending reevaluation of general surgery and is reconciled to the possibility of surgical needs. Supportive care given. Last hemoglobin checked 12.2. Right lower quadrant is his chief complaint of dull pain worse with light palpation. 06/22/2017, small bowel follow-through exam unremarkable. Was seen per Dr. Sawant general surgeon who told patient no obstruction, no need for surgical intervention at this time. Patient is still taking daily Dulcolax suppository, but still no bowel movement yet. Colon Continues with minimal motility, patient is continuing to drink clear liquids on a limited basis Patient did have dose of Remicade, on 06-1406/23/2017 patient had 2 soapsuds enemas and a Gastrografin enema this a.m which was unremarkable.. Brown water returned with subset enemas but no solid stool 06/24/2017, patient did have 2 small putting consistent BMs on 06/24/2017. Patient still on clear liquids and tolerating fairly well. Discussion with Dr. Blackmon on for slow prep over the weekend and pursue a colonoscopy with possible TIA dilation on Monday. NG tube was DC'd. Will discuss further if colonoscopy is still the plan for Monday since patient has had bowel movements. 06/25/17 pt tolerating small amts clears, still some nausea. pain much improved. BM yesterday. Pt requesting alternative GI doc to do colonoscopy 06/28/2017 patient was sitting out in the lounge area ambulating in the [place]. States no further bowel movements since colonoscopy done on 06/26/2017. Gradual improvement noted overall and patient is due to receive Remicade dose in the morning. Patient notes some mild left lower quadrant pain which seems to wax and wane which is different from the previous abdominal pain he was having. This left lower quadrant pain could be related to some stool in the colon. Colonoscopy was done on 06/26/2017, The colon mucosa was normal Anastomosis was wide open, no stricture noted few small ulcers at the anastomosis biopsy was done 06/29/17 tolerating some PO. still no BM since 06/26. denies flatus. has lower quadrant pain. just got 2nd dose remicade. bx small bowel anastomosis mild fibrosis, chronic inflammation, acute colitis not idenitified. PLAN kub continue remicade consider CRS consult Diet as tolerated Continue TPN for now after d/c f/u with Dr Hernandez 1-2 weeks Patient was seen per myself and Dr. Chung, note was written on his behalf (Candace Pendleton) Plan Patient was seen and examined, agree with above note, CT scan did not show continue medication, received Remicade today, pain management per primary team, continue laxative to see if that would help patient having (Temitope Chung MD) Candace Pendleton June 29, 2017 11:37 Temitope Chung MD June 29, 2017 20:19
--- NOTE | 2017-06-29 11:43 | HHI.PR ---
Subjective Remarks Pt still complains of continued abdominal pain and bloating. No BM or flatus He is ambulating in the halls Trying to eat some liquids but this causes increased pain Objective Vitals Vital Signs Date Time Temp Pulse Resp B/P (MAP) Pulse Ox O2 Delivery O2 Flow Rate FiO2 06/29/17 08:00 97.8 85 16 135/79 (97) 97 06/29/17 04:00 98.5 110 17 140/67 (91) 98 06/28/17 23:00 98.2 83 20 138/84 (102) 98 06/28/17 23:00 83 06/28/17 22:30 98.6 82 20 132/86 (101) 06/28/17 22:00 98.0 87 22 152/89 (110) 97 06/28/17 21:45 98.0 89 18 138/86 (103) 97 06/28/17 21:30 98.1 94 20 137/88 (104) 97 06/28/17 21:15 98.0 107 20 136/85 (102) 97 06/28/17 21:00 98.6 110 22 132/86 (101) 98 06/28/17 20:18 117 17 151/91 06/28/17 20:00 98.5 117 17 151/91 (111) 97 06/28/17 20:00 107 06/28/17 16:00 98.2 92 17 132/78 (96) 97 06/28/17 12:00 98.5 97 17 145/96 (112) 95 Result Diagram: 06/26/17 0430 06/29/17 0615 Imaging Last Impressions Enema w/Water Soluble 06/23/17 0900 Signed Impressions: Service Date/Time: Friday, June 23, 2017 09:16 - CONCLUSION: Unremarkable Gastrografin enema. Pramod Chavez MD Abdomen X-Ray 06/21/17 0800 Signed Impressions: Service Date/Time: Wednesday, June 21, 2017 08:56 - CONCLUSION: Normal examination. Pramod Chavez MD Small Bowel X-Ray 06/21/17 0000 Signed Impressions: Service Date/Time: Wednesday, June 21, 2017 14:46 - CONCLUSION: Unremarkable small bowel examination. Pramod Chavez MD Abdomen/Pelvis CT 06/19/17 0800 Signed Impressions: Service Date/Time: Monday, June 19, 2017 11:52 - CONCLUSION: 1. Extensive wall thickening of the terminal ileum consistent with patient's known Crohn's disease. No pericolonic fluid collections or abscess. No significant inflammatory changes. 2. No bowel obstruction. Paolo Monroy MD Objective Remarks GENERAL: This is a thin 37 year old male patient CARDIO: Regular RESP: CTA bilaterally. ABD: Hypoactive BS, soft, nondistended, left sided tenderness EXT: Extremities without clubbing, cyanosis, or edema. Procedures Colonoscopy 06/26/[address] Soliz A/P Problem List: (1) Small bowel obstruction ICD Codes: K56.609 - Unspecified intestinal obstruction, unspecified as to partial versus complete obstruction Status: Acute Plan: - comgmt with General Surgery and GI - Pt is a 37 y/o male with long history of Crohn's disease s/p previous ileocolonic resection and primary anastomosis with recurrent ulceration causing small bowel obstruction. - TPN - areas of severe inflammation on CT. No Relistor at this time. - CT A/P (06/19) - Extensive wall thickening of the terminal ileum consistent with patient's known Crohn's - No pericolonic fluid collections or abscess. No significant inflammatory - KUB (06/19) - contrast and gas seen throughout non-dilated colon - Pt is on IV Solu-Medrol 40mg Q6H (06/13 - present) - IV Flagyl (06/13 - present) - IV Cipro (06/13 - present) - Pt started on Remicade on 06/14/17. GI recommending that pt may need repeat Remicade at 2 and 6 weeks - NGT clamped on 06/19 with trial of clears. NGT resumed to LIWS d/t increased abd pain and nausea - NGT again clamped again (06/20) to (06/21). Increased discomfort following trial of clear. urs. - NGT tube removed (06/23) - Pt had BM 06/23/17 - Dilaudid. Frequency decreased to q6h following colonoscopy but pain was severe and frequence was increased back to Q4H on 06/27 - Pt received 15 doses of Entereg - Encourage ambulation - Gastrografin small bowel follow through (06/21) --> unremarkable - Gastrografin enema (06/23) --> unremarkable - Colonoscopy 06/26/[address] Chung --> colon mucosa was normal, anastomosis was wide open, there were a few small ulcers at the anastomosis. - Tried to DC IV steroid and start prednisone 30 mg PO BID but IV steroids was resumed on 06/27 due to c/o pressure sensation LLQ and no flatus - Not tolerating PO intake - Pt was having continued pain after colonoscopy - GI reconsulted on 06/27 - Pt to received second dose of Remicade on 06/28/17 - Pt continues to have persistent pain and unable to tolerate liquid diet as he is still having significant pain with any po intake - GI does not feel at this time that the pt is a surgical candidate as he has only had one dose of Remicade and usually take 8-12 sometimes up to 16 weeks for the medical management to respond - We will continue to wean down on his narcotics as this is likely slowing his gut motility - Change Solu-Medrol to oral prednisone 30mg po BID (06/29) - Change IV Ativan to 1mg po Q6H PRN - Daily laxatives - Encourage ambulation - DVT prophylaxis - Cont. supportive care (2) Acute Crohn's disease with complication ICD Codes: K50.919 - Crohn's disease, unspecified, with unspecified complications Status: Acute Plan: as above. Assessment and Plan Patient examined. Assessment and plan formulated with Alexa Ramos PA-C. I agree with the above. crohns dz with obstruction. discussed with GI. pt hasn't failed medical therapy and felt no need for surgery. pt still c/o severe pain and no flatus yet. he is taking again some liquids we are lowering the pain meds daily as he is very upset with this. we will get more aggressive with laxatives hopefully start weaning tpn soon convert to prednisone taper. Alexa Ramos June 29, 2017 11:43 Jose M Emerson MD June 29, 2017 12:40
[2017-06-29 12:00] VITALS: BP 140/90; PULSE 127; RESP 17; TEMP 97.9; O2SAT 97
[2017-06-29] MEDS: LACTULOSE SYRUP 20 GM/30 ML CUP PO SCH (12:46)
--- NOTE | 2017-06-29 13:39 | RADRPT ---
EXAM DATE/TIME: 06/29/2017 13:28 [place] COMPARISON: CT ABDOMEN & PELVIS W CONTRAST, June 11, 2017, 23:22. CT ABDOMEN & PELVIS W/O CONTRAST, June 19, 018, 11:52. ABDOMEN KUB ONLY, June 21, 2017, 8:56. INDICATIONS : Constipation, abdominal pain, nausea, vomiting. MEDICAL HISTORY : Crohn's disease. Smoker. SURGICAL HISTORY : Bowel resection. ENCOUNTER: Subsequent ACUITY: 2 weeks PAIN SCORE: 5/10 LOCATION: Right lower quadrant FINDINGS: Supine view of the abdomen was performed. The abdominal bowel gas pattern is normal with some mild s tool in the colon and no dilated loops of small or large bowel.. No abnormal masses, calcifications, or organomegaly is seen. Stable anastomosis suture in the right lower quadrant ileocolic surgery si te. The osseous structures are unremarkable. CONCLUSION: Benign abdomen. Stuart Cid MD on June 29, 2017 at 13:34 Board Certified Radiologist. This report was verified electronically.
[2017-06-29] MEDS: LORazepam 1 MG TAB PO PRN ×2 (15:23→23:23)
[2017-06-29 16:00] VITALS: BP 148/90; PULSE 98; RESP 16; TEMP 98.3; O2SAT 97
[2017-06-29] MEDS ORDERED: LACTULOSE SYRUP 20 GM/30 ML CUP PO ONE (16:15)
[2017-06-29 20:00] VITALS: BP 149/92; PULSE 109; RESP 20; TEMP 98; O2SAT 96
[2017-06-29] MEDS: CLINIMIX 5/25 (Custom) 2000 mL- >42 mls/hr IV-CENTRAL SCH ×9 (20:19)
[2017-06-29] MEDS: FAT EMULSION 20% INJ 250 ML (@10 mls/hr) IV-CENTRAL SCH (20:20)
[2017-06-29] MEDS: predniSONE 10 MG TAB PO SCH (20:20)
[2017-06-29 21:00] VITALS: PULSE 125
[2017-06-30] VITALS (7 sets, daily range): BP systolic 122–154; BP diastolic 73–95; PULSE 88–118; RESP 17–20; TEMP 97.6–98.3; O2SAT 95–98
[2017-06-30] MEDS: BISACODYL 10 MG SUPP RECTAL SCH (07:38)
[2017-06-30] MEDS: DOCUSATE SODIUM 50 MG/SENNA 8.6 MG TAB PO SCH ×2 (07:38→21:33)
[2017-06-30] MEDS: LACTULOSE SYRUP 20 GM/30 ML CUP PO SCH (07:39)
--- NOTE | 2017-06-30 08:48 | HHI.PR ---
Subjective Remarks Pt had two large volume liquid stools last night/overnight He was able to tolerate chicken noodle soup and a half of a sandwich for dinner last night with some pain but reports that it is his baseline pain He has been afebrile Pt much less anxious today Objective Vitals Vital Signs Date Time Temp Pulse Resp B/P (MAP) Pulse Ox O2 Delivery O2 Flow Rate FiO2 06/30/17 04:00 97.6 90 20 122/73 (89) 97 06/30/17 00:28 118 06/30/17 00:00 97.8 107 20 154/94 (114) 95 06/29/17 21:00 125 06/29/17 20:00 98.0 109 20 149/92 (111) 96 06/29/17 16:00 98.3 98 16 148/90 (109) 97 06/29/17 12:00 97.9 127 17 140/90 (107) 97 Result Diagram: 06/26/17 0430 06/29/17 0615 Other Results Laboratory Tests Test 06/29/17 06:15 Blood Urea Nitrogen 12 MG/DL Creatinine 0.44 MG/DL Random Glucose 91 MG/DL Total Protein 5.5 GM/DL Albumin 2.8 GM/DL Calcium Level 8.4 MG/DL Alkaline Phosphatase 33 U/L Aspartate Amino Transf (AST/SGOT) 21 U/L Alanine Aminotransferase (ALT/SGPT) 26 U/L Total Bilirubin 0.3 MG/DL Sodium Level 142 MEQ/L Potassium Level 4.1 MEQ/L Chloride Level 107 MEQ/L Carbon Dioxide Level 28.6 MEQ/L Anion Gap 6 MEQ/L Estimat Glomerular Filtration Rate 219 ML/MIN Imaging Last Impressions Enema w/Water Soluble 06/23/17 0900 Signed Impressions: Service Date/Time: Friday, June 23, 2017 09:16 - CONCLUSION: Unremarkable Gastrografin enema. Pramod Chavez MD Abdomen X-Ray 06/21/17 0800 Signed Impressions: Service Date/Time: Wednesday, June 21, 2017 08:56 - CONCLUSION: Normal examination. Pramod Chavez MD Small Bowel X-Ray 06/21/17 0000 Signed Impressions: Service Date/Time: Wednesday, June 21, 2017 14:46 - CONCLUSION: Unremarkable small bowel examination. Pramod Chavez MD Abdomen/Pelvis CT 06/19/17 0800 Signed Impressions: Service Date/Time: Monday, June 19, 2017 11:52 - CONCLUSION: 1. Extensive wall thickening of the terminal ileum consistent with patient's known Crohn's disease. No pericolonic fluid collections or abscess. No significant inflammatory changes. 2. No bowel obstruction. Paolo Monroy MD Objective Remarks GENERAL: This is a thin 37 year old male patient CARDIO: Regular RESP: CTA bilaterally. ABD: Hypoactive BS, soft, nondistended, left sided tenderness EXT: Extremities without clubbing, cyanosis, or edema. Procedures Colonoscopy 06/26/[address] Soliz A/P Problem List: (1) Small bowel obstruction ICD Codes: K56.609 - Unspecified intestinal obstruction, unspecified as to partial versus complete obstruction Status: Acute Plan: - comgmt with General Surgery and GI - Pt is a 37 y/o male with long history of Crohn's disease s/p previous ileocolonic resection and primary anastomosis with recurrent ulceration causing small bowel obstruction. - TPN - areas of severe inflammation on CT. No Relistor at this time. - CT A/P (06/19) - Extensive wall thickening of the terminal ileum consistent with patient's known Crohn's - No pericolonic fluid collections or abscess. No significant inflammatory - KUB (06/19) - contrast and gas seen throughout non-dilated colon - Pt is on IV Solu-Medrol 40mg Q6H (06/13 - present) - IV Flagyl (06/13 - present) - IV Cipro (06/13 - present) - Pt started on Remicade on 06/14/17. GI recommending that pt may need repeat Remicade at 2 and 6 weeks - NGT clamped on 06/19 with trial of clears. NGT resumed to LIWS d/t increased abd pain and nausea - NGT again clamped again (06/20) to (06/21). Increased discomfort following trial of clear. urs. - NGT tube removed (06/23) - Pt had BM 06/23/17 - Dilaudid. Frequency decreased to q6h following colonoscopy but pain was severe and frequency was increased back to Q4H on 06/27 - Pt received 15 doses of Entereg - Encourage ambulation - Gastrografin small bowel follow through (06/21) --> unremarkable - Gastrografin enema (06/23) --> unremarkable - Colonoscopy 06/26/[address] Chung --> colon mucosa was normal, anastomosis was wide open, there were a few small ulcers at the anastomosis. - Tried to DC IV steroid and start prednisone 30 mg PO BID but IV steroids was resumed on 06/27 due to c/o pressure sensation LLQ and no flatus - Not tolerating PO intake - Pt was having continued pain after colonoscopy - GI reconsulted on 06/27 - Pt to received second dose of Remicade on 06/28/17 - GI does not feel at this time that the pt is a surgical candidate as he has only had one dose of Remicade and usually take 8-12 sometimes up to 16 weeks for the medical management to respond - We began weaning down on his narcotics as this is likely slowing his gut motility on 06/28/17 - Solu-Medrol changed to oral prednisone 30mg po BID (06/29) - Changed IV Ativan to 1mg po Q6H PRN - On 06/29-06/30 pt began having large volume loose stools and is tolerating oral intake. Starting to improve clinically. - Wean TPN today - Daily laxatives - Encourage ambulation - DVT prophylaxis - Cont. supportive care (2) Acute Crohn's disease with complication ICD Codes: K50.919 - Crohn's disease, unspecified, with unspecified complications Status: Acute Plan: as above. Assessment and Plan Patient examined. Assessment and plan formulated with Alexa Ramos PA-C. I agree with the above. doing great . bowels moving. tolerating diet. wean off tpn home in AM Alexa Ramos June 30, 2017 08:48 Jose M Emerson MD June 30, 2017 14:22
[2017-06-30] MEDS: predniSONE 10 MG TAB PO SCH ×2 (08:56→21:33)
[2017-06-30] MEDS: ONDANSETRON HCL 4 MG/2 ML VIAL IVP PRN (08:56)
[2017-06-30] MEDS: NS + KCL 20 MEQ INJ 1,000 ML IV SCH (08:57)
[2017-06-30] MEDS: SODIUM CHLORIDE 0.9% FLUSH 10 ML FLUSH IV FLUSH SCH ×3 (08:57→21:37)
[2017-06-30] MEDS: HYDROmorphone HCL PF 0.5 MG/0.5 ML SYRINGE IV PUSH PRN (09:02)
--- NOTE | 2017-06-30 11:29 | PD.PSY.CON ---
Provisional Diagnosis Admission Date Jun 12, 2017 at 01:04 Tabor I. Adjustment disorder with mixed anxiety and depression Tabor II. Deferred Tabor III. 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 patient was consulted to psychiatry due to anxiety. On psychiatric evaluation the patient is found with his significant other in the room. He was interview alone. EMR was reviewed. Patient reports that he is much better today. He says that his source of anxiety has already disappeared since he defecated last night. He reports that he was more than 10 days without defecation and his prognosis was to have a surgical intervention with intestinal resection, "but now I am just waiting to be discharged, so my mood and anxiety have gone". At this moment the patient reports good mood, he denies anhedonia, he denies hopelessness, he denies helplessness, worthlessness, he denies suicidal enemas ideation, he denies visual and auditory hallucinations. She reports occasional use of marijuana, but other than that he denies other illegal drugs and alcohol Review of Systems Constitutional: DENIES: Diaphoretic episodes, Fatigue, Fever, Weight gain, Weight loss, Chills, Dizziness, Change in appetite, Night Sweats Past Family Social History Coded Allergies: No Known Allergies (Unverified , 06/11/17) Reported Medications Sennosides (Ex-Lax) 15 Mg Tab.chew 06/11/17 Magnesium Citrate Liq (Magnesium Citrate Liq) 300 Ml Liq, 300 ML PO ONCE, #1 BOTTLE 0 Refills 06/11/17 Current Medications Medications (Trade) Dose Ordered Sig/Rohit Route Start Time Stop Time Status Last Admin (NS Flush) 2 ml UNSCH PRN IV FLUSH 06/12/17 01:00 (NS Flush) 2 ml BID IV FLUSH 06/12/17 09:00 06/30/17 08:57 (Zofran Inj) 4 mg Q6H PRN IVP 06/12/17 01:00 06/30/17 08:56 Acetaminophen 100 ml @ 400 mls/hr Q6H PRN IV 06/12/17 01:00 (Elham-Colace) 1 tab BID PO 06/12/17 09:00 06/29/17 20:20 (Milk Of Magnesia Liq) 30 ml Q12H PRN PO 06/12/17 01:00 (Senokot) 17.2 mg Q12H PRN PO 06/12/17 01:00 06/12/17 02:22 (Chloraseptic [place]) 2 spray Q2H PRN OROPHARYNG 06/12/17 16:45 06/12/17 18:24 (NS Flush) See Protocol DAILY IV FLUSH 06/14/17 09:00 06/25/17 09:28 (NS Flush) See Protocol UNSCH PRN IV FLUSH 06/13/17 16:00 (Heparin Central Flush) See Protocol DAILY IV FLUSH 06/14/17 09:00 06/30/17 08:56 (Heparin Central Flush) See Protocol UNSCH PRN IV FLUSH 06/13/17 16:00 (NS Flush) UNSCH PRN IV FLUSH 06/13/17 16:00 06/17/17 22:18 (Benadryl Inj) 25 mg UNSCH PRN IV PUSH 06/14/17 15:00 (Adrenalin (1:1000) Inj) 0.3 mg UNSCH PRN OTHER 06/14/17 15:00 Fat Emulsion Intravenous 250 ml @ 10 mls/hr Q24H IV-CENTRAL 06/15/17 20:00 06/29/17 20:20 (Ofirmev 1000 Mg/ 100 ml Inj) 1,000 mg Q6H PRN IV 06/17/17 12:00 Potassium Chloride/Sodium Chloride 1,000 ml @ 42 mls/hr [id number] IV 06/18/17 09:00 06/30/17 08:57 (Dulcolax Supp) 10 mg DAILY RECTAL 06/21/17 09:00 06/29/17 07:25 Sodium Chloride 11 meq/Sodium Acetate 59 meq/ Potassium Chloride 40 meq/ Sodium Phosphate 40 meq/Magnesium Chloride 10 meq/ Calcium Chloride 9 meq/ Multivitamins 10 ml/Folic Acid 1 mg/Amino Acids/ Dextrose 2,084.1437 ml @ 83 mls/hr Q24H IV-CENTRAL 06/28/17 20:00 06/30/17 13:00 06/29/17 20:19 Sodium Chloride 250 ml @ 0 mls/hr UNSCH PRN IV 06/28/17 17:15 (Cathflo Activase Inj) 2 mg UNSCH PRN INTRACATH 06/28/17 19:15 (SoluCORTEF INJ) 250 mg UNSCH PRN IV PUSH 06/28/17 19:15 (Deltasone) 30 mg BID PO 06/29/17 21:00 06/30/17 08:56 (Ativan) 1 mg Q6H PRN PO 06/29/17 11:45 06/29/17 23:23 (Lactulose Liq) 30 ml DAILY PO 06/29/17 12:00 06/29/17 12:46 ([place] 10-325 Mg) 1 tab Q4H PRN PO 06/30/17 09:15 Physical Exam Vital Signs Vital Signs Date Time Temp Pulse Resp B/P (MAP) Pulse Ox O2 Delivery O2 Flow Rate FiO2 06/30/17 08:00 97.8 95 17 127/77 (94) 97 I/O 06/30/17 06/30/17 07/01/17 08:00 16:00 00:00 Intake Total 900 ml Output Total 1700 ml Balance -800 ml Mental Status Examination Appearance: Appropriate Consciousness: Alert Orientation: x4 Motor Activity: Normal gait Speech: Unremarkable Language: Adequate Fund of Knowledge: Adequate Attention and Concentration: Adequate Memory: Unremarkable Mood: Appropriate Affect: Appropriate Thought Process & Associations: Intact Thought Content: Appropriate Hallucination Type: None Delusion Type: None Suicidal Ideation: No Suicidal Plan: No Suicidal Intention: No Homicidal Ideation: No Homicidal Plan: No Homicidal Intention: No Insight: Adequate Judgment: Adequate Assessment & Plan Problem List: (1) Adjustment disorder with mixed anxiety and depressed mood ICD Codes: F43.23 - Adjustment disorder with mixed anxiety and depressed mood Assessment & Plan: Psychiatric evaluation the patient does not present any significant, acute or concerning symptomatology of depression, anxiety, violeta or psychosis. The patient denies suicidal and was ideation, the patient denies visual and auditory hallucinations. Apparently reason symptoms of anxiety and depression were related with fear of having surgery and a prolonged hospitalization, but since the patient was able to go to the bathroom and an intestinal obstruction has been rule out he has been feeling quite happy. He does not meet criteria for involuntary psychiatric admission. I will order Ativan 1 mg p.o. every 8 hours as needed for anxiety, just in case the patient needs it. Consult appreciated. Assessment & Plan Estimated LOS: Darwin Fernandez MD June 30, 2017 11:29
[2017-06-30] MEDS: ACETAMINOPHEN/HYDROcodone 325 MG/10 MG TAB PO PRN ×3 (12:50→21:33)
--- NOTE | 2017-06-30 13:40 | HHI.GIFU ---
Subjective Remarks Head of bed elevated 90 patient is eating regular food with some clear and full liquids also Seems to be feeling much better today, I have these include TPN being weaned off patient BM 2 yesterday evening, dark brown liquid which appears to be his norm Afebrile Second dose of Remicade given on 06/28/2017 (Alanna Freitas) Objective Vitals I&O Vital Signs Date Time Temp Pulse Resp B/P (MAP) Pulse Ox O2 Delivery O2 Flow Rate FiO2 06/30/17 12:00 98.3 98 17 132/84 (100) 98 06/30/17 08:00 97.8 95 17 127/77 (94) 97 06/30/17 04:00 97.6 90 20 122/73 (89) 97 06/30/17 00:28 118 06/30/17 00:00 97.8 107 20 154/94 (114) 95 06/29/17 21:00 125 06/29/17 20:00 98.0 109 20 149/92 (111) 96 06/29/17 16:00 98.3 98 16 148/90 (109) 97 I/O 06/29/17 06/29/17 06/29/17 06/30/17 06/30/17 06/30/17 07:00 15:00 23:00 07:00 15:00 23:00 Intake Total 1250 ml 3350 ml 900 ml Output Total 3240 ml 1150 ml 1700 ml Balance -1990 ml 2200 ml -800 ml Intake Oral 0 ml 1100 ml 900 ml IV Total 1250 ml 2250 ml Output Urine Total 3240 ml 1150 ml 1700 ml # Bowel Movements 0 0 2 Imaging Last Impressions Abdomen X-Ray 06/29/17 0000 Signed Impressions: Service Date/Time: June 13:28 - CONCLUSION: Benign abdomen. Stuart Cid MD Enema w/Water Soluble 06/23/17 0900 Signed Impressions: Service Date/Time: Friday, June 23, 2017 09:16 - CONCLUSION: Unremarkable Gastrografin enema. Pramod Chavez MD Small Bowel X-Ray 06/21/17 0000 Signed Impressions: Service Date/Time: Wednesday, June 21, 2017 14:46 - CONCLUSION: Unremarkable small bowel examination. Pramod Chavez MD Abdomen/Pelvis CT 06/19/17 0800 Signed Impressions: Service Date/Time: Monday, June 19, 2017 11:52 - CONCLUSION: 1. Extensive wall thickening of the terminal ileum consistent with patient's known Crohn's disease. No pericolonic fluid collections or abscess. No significant inflammatory changes. 2. No bowel obstruction. Paolo Monroy MD Physical Exam HEENT: Normocephalic; atraumatic, facial color improved, CHEST: CTA, no rhonchi or shortness of breath CARDIAC: RRR ABDOMEN: mildly distended, minimal soreness now. BS active EXTREMITIES: No clubbing, cyanosis, or edema. SKIN: Normal; no rash; no jaundice. PAPER COLORER: No focal deficits; alert and oriented times three., No overt anxiety (Alanna Freitas) Assessment and Plan Assessment: (1) Acute Crohn's disease with complication ICD Codes: K50.919 - Crohn's disease, unspecified, with unspecified complications Status: Acute Plan History of Crohn's disease, initially patient had no BM for approximately 12 days, no bowel movement since his colonoscopy. No BMs over the last few days, abdominal pain which had resolved but now moved down into the left lower quadrant. Patient had been evaluated and followed per general surgery but no surgical interventions this admission. Patient had NG tube for over a week but that has now been DC'd. Gradual improvement noted, plan has been for patient to receive Remicade dose tomorrow. Currently continues with TPN to assist with his nutritional support 06/20/2017, patient became mildly distended and uncomfortable last p.m. after x- ray was done. Unclamped with approximately 800 cc return according to nurse. Currently NGT is been clamped all day and patient states that he was able to take double the p.o. fluids today and had minimal cramping or distention.: X- ray shows nondilated colon. Patient has had daily Dulcolax suppositories on 423 and 424 without results but feels like he has an occasional urge to defecate which passes. Currently patient is passing no gas. Appreciate general surgery input 06/21/2017, patient not feeling as good today, but has been able to tolerate NG without clamping for greater than 24 hours. Multiple fleets enema is given with only return of fluid with a brown color according to patient. Patient is pending reevaluation of general surgery and is reconciled to the possibility of surgical needs. Supportive care given. Last hemoglobin checked 12.2. Right lower quadrant is his chief complaint of dull pain worse with light palpation. 06/22/2017, small bowel follow-through exam unremarkable. Was seen per Dr. Sawant general surgeon who told patient no obstruction, no need for surgical intervention at this time. Patient is still taking daily Dulcolax suppository, but still no bowel movement yet. Colon Continues with minimal motility, patient is continuing to drink clear liquids on a limited basis Patient did have dose of Remicade, on 06-1406/23/2017 patient had 2 soapsuds enemas and a Gastrografin enema this a.m which was unremarkable.. Brown water returned with subset enemas but no solid stool 06/24/2017, patient did have 2 small putting consistent BMs on 06/24/2017. Patient still on clear liquids and tolerating fairly well. Discussion with Dr. Blackmon on 427 for slow prep over the weekend and pursue a colonoscopy with possible TIA dilation on Monday. NG tube was DC'd. Will discuss further if colonoscopy is still the plan for Monday since patient has had bowel movements. 06/25/17 pt tolerating small amts clears, still some nausea. pain much improved. BM yesterday. Pt requesting alternative GI doc to do colonoscopy 06/28/2017 patient was sitting out in the lounge area ambulating in the [place]. States no further bowel movements since colonoscopy done on 06/26/2017. Gradual improvement noted overall and patient is due to receive Remicade dose in the morning. Patient notes some mild left lower quadrant pain which seems to wax and wane which is different from the previous abdominal pain he was having. This left lower quadrant pain could be related to some stool in the colon. Colonoscopy was done on 06/26/2017, The colon mucosa was normal Anastomosis was wide open, no stricture noted few small ulcers at the anastomosis biopsy was done 06/29/17 tolerating some PO. still no BM since 06/26. denies flatus. has lower quadrant pain. just got 2nd dose remicade. bx small bowel anastomosis mild fibrosis, chronic inflammation, acute colitis not identified. 06/30/2017 patient is excited for having bowel movements 2 this past p.m. notes that they were dark brown watery but no obvious blood which is his norm. Currently being weaned off of IV TPN and IV drips today. Eating very slowly but tolerating clear and full liquids and also has some solid food Abdominal x-ray done on 05/30/2017 unremarkable. Note Remicade dose was done on . Patient has been up ambulatory and is feeling much better today. Plan Chew food slowly and hydration, diet is regular but patient is adding and clear and full liquids also Daily bowel regimen meds are available. Patient may need to continue until BMs are back to completely normal Monitor labs Supportive care Once patient is DC'd can follow-up with Dr. Hernandez in 1-2 weeks, could be DC'd from a GI standpoint Patient was seen per myself and Dr. Chung, note was written on his behalf (Alanna Freitas) Plan Patient is able to eat some food, feeling more comfortable, abdominal discomfort resolving and improving, patient will be discharged to follow with Dr. Hernandez as an outpatient (Temitope Chung MD) Alanna Freitas June 30, 2017 13:40 Temitope Chung MD June 30, 2017 22:57
[2017-06-30] MEDS: LORazepam 1 MG TAB PO PRN (17:51)
[2017-07-01] VITALS: BP 126/78; PULSE 81; RESP 20; TEMP 97.5; O2SAT 97
[2017-07-01] MEDS: LORazepam 1 MG TAB PO PRN ×2 (02:42→09:29)
[2017-07-01] MEDS: ACETAMINOPHEN/HYDROcodone 325 MG/10 MG TAB PO PRN (02:42)
[2017-07-01 08:00] VITALS: BP 129/78; PULSE 81; RESP 18; TEMP 97.7; O2SAT 98
[2017-07-01] MEDS: NS + KCL 20 MEQ INJ 1,000 ML IV SCH (09:28)
[2017-07-01] MEDS: DOCUSATE SODIUM 50 MG/SENNA 8.6 MG TAB PO SCH (09:29)
[2017-07-01] MEDS: ONDANSETRON HCL 4 MG/2 ML VIAL IVP PRN (09:29)
[2017-07-01] MEDS: predniSONE 10 MG TAB PO SCH (09:29)
[2017-07-01] MEDS: SODIUM CHLORIDE 0.9% FLUSH 10 ML FLUSH IV FLUSH SCH ×2 (09:30)
[2017-07-01] MEDS: LACTULOSE SYRUP 20 GM/30 ML CUP PO SCH (09:30)
[2017-07-01] MEDS ORDERED: NORC5TAB PO (10:18)
[2017-07-01] MEDS ORDERED: LORA-474 PO (10:18)
[2017-07-01] MEDS ORDERED: PRED10 PO (10:18)
--- NOTE | 2017-07-01 10:18 | HHI.DCPOC ---
Discharge Care Plan Diagnosis: (1) Acute Crohn's disease with complication (2) Small bowel obstruction Goals to Promote Your Health * To prevent worsening of your condition and complications * To maintain your health at the optimal level Directions to Meet Your Goals Take your medications as prescribed Follow your dietary instruction Follow activity as directed Keep your appointments as scheduled Take your immunizations and boosters as scheduled If your symptoms worsen call your PCP, if no PCP go to Urgent Care Center or Emergency Room Smoking is Dangerous to Your Health. Avoid second hand smoke Call the 24-hour hour crisis hotline for domestic abuse at Jose M Emerson MD July 01, 2017 10:18
--- NOTE | 2017-07-01 10:24 | HHI.DS ---
Discharge Summary Admission Date Jun 12, 2017 at 01:04 Discharge Date: July 01, 2017 Admitting Diagnosis Crohn's Dz Exacerbation; Bowel Obstruction (1) Small bowel obstruction Diagnosis: Principal ICD Codes: K56.609 - Unspecified intestinal obstruction, unspecified as to partial versus complete obstruction Status: Acute (2) Acute Crohn's disease with complication Diagnosis: Principal ICD Codes: K50.919 - Crohn's disease, unspecified, with unspecified complications Status: Acute (3) Adjustment disorder with mixed anxiety and depressed mood Diagnosis: Principal ICD Codes: F43.23 - Adjustment disorder with mixed anxiety and depressed mood Procedures Colonoscopy 06/26/[address] Soliz Brief History 37-year-old male complains of Crohn's disease. He has pain in the right lower quadrant. He reports typically having 5-6 episodes of diarrhea every single morning, but no bowel movement for the past 4 days. He reports about every 4 minutes or so he develops a cramping quality in the right lower quadrant that is 6-7/10 in pain severity. Associated symptoms include vomiting diaphoresis. He denies fever. No flatus. Typically does not have any vomiting but has vomited several times in the last 3 days. He has had small bowel obstruction in the past most recently December 2016 but did not require surgery at that point. He does have distant history of partial bowel resection with ileostomy and subsequent reversal in 2003. He has been evaluated by on-call surgical team and will be transferred up to the [facility] for likely surgical intervention. It is noted that initially he was admitted to separate service but was subsequently found to have active [place] [facility] so I was called to evaluate the patient. CBC/BMP: 06/29/17 0615 Significant Findings Laboratory Tests Test 06/29/17 06:15 Creatinine 0.44 MG/DL (0.60-1.30) Total Protein 5.5 GM/DL (6.4-8.2) Albumin 2.8 GM/DL (3.4-5.0) Calcium Level 8.4 MG/DL (8.5-10.1) Alkaline Phosphatase 33 U/L (45-117) Hospital Course (1) Small bowel obstruction - comgmt with General Surgery and GI - Pt is a 37 y/o male with long history of Crohn's disease s/p previous ileocolonic resection and primary anastomosis with recurrent ulceration causing small bowel obstruction. - TPN - areas of severe inflammation on CT. - CT A/P (06/19) - Extensive wall thickening of the terminal ileum consistent with patient's known Crohn's - No pericolonic fluid collections or abscess. No significant inflammatory - KUB (06/19) - contrast and gas seen throughout non-dilated colon - Pt was on IV Solu-Medrol 40mg Q6H - IV Flagyl -IV Cipro - Pt started on Remicade on 06/14/17. GI recommending that pt may need repeat Remicade at 2 and 6 weeks - NGT clamped on 06/19 with trial of clears. NGT resumed to [facility] d/t increased abd pain and nausea - NGT again clamped again (06/20) to (06/21). Increased discomfort following trial of clear. urs. - NGT tube removed (06/23) - Gastrografin small bowel follow through (06/21) --> unremarkable - Gastrografin enema (06/23) --> unremarkable - Colonoscopy 06/26/[address] Chung --> colon mucosa was normal, anastomosis was wide open, there were a few small ulcers at the anastomosis. - Tried to DC IV steroid and start prednisone 30 mg PO BID but IV steroids was resumed on 06/27 due to c/o pressure sensation LLQ and no flatus - Not tolerating PO intake- Pt was having continued pain after colonoscopy - GI reconsulted on 06/27 - Pt to received second dose of Remicade on 06/28/17 - GI does not feel at this time that the pt is a surgical candidate as he has only had one dose of Remicade and usually take 8-12 sometimes up to 16 weeks for the medical management to respond - We began weaning down on his narcotics as this is likely slowing his gut motility on 06/28/17 - Solu-Medrol changed to oral prednisone 30mg po BID (06/29) - On 06/29-06/30 pt began having large volume loose stools and is tolerating oral intake. Starting to improve clinically. - Weaned TPN to off. On day of d/c. moving bowels. tolerating food. will dc on steroid taper and GI f /u for future remicade. He will also get pcp at [facility] and mental health appt. (2) Acute Crohn's disease with complication ICD Codes: K50.919 - Crohn's disease, unspecified, with unspecified complications Pt Condition on Discharge: Stable Discharge Disposition: Discharge Home Discharge Instructions DIET: Follow Instructions for: As Tolerated, No Restrictions Activities you can perform: Regular-No Restrictions Follow up Referrals: Gastroenterology - 1 Week with Madalyn Hernandez MD New Medications: Hydrocodone-Acetaminophen ([place]) 5 Mg-325 Mg Tab 1 TAB PO Q4H PRN for PAIN, #30 TAB 0 Refills Lorazepam (Ativan) 1 Mg Tab 1 MG PO BID PRN for ANXIETY AND/OR AGITATION, #20 TAB 0 Refills Prednisone (Prednisone) 10 Mg Tab 10 MG PO DIRECTED for Inflammation for 22 Days, TAB 0 Refills 30mg po bid x 5 days,20mg po bid x 5 days,10mg po bid x 5 days, 10mg po 7 days Discontinued Medications: Magnesium Citrate Liq (Magnesium Citrate Liq) 300 Ml Liq 300 ML PO ONCE, #1 BOTTLE 0 Refills Sennosides (Ex-Lax) 15 Mg Tab.chew Jose M Emerson MD July 01, 2017 10:24
== END 2017-07-01 12:42 | disposition home or self-care (01) | DRG 386 ==
LOC: PHED 19:21 → PHEDA 06-12 01:04 → PH3A 06-12 03:09 → N07B 06-12 16:18
PROVIDERS: ADMIT Hospitalist; ATTEND Hospitalist
PROC: 0D9670Z Drainage of Stomach with Drainage Device, Via Natural or Artificial Opening (ICD-10-PCS; 2017-06-12)
PROC: 0DBE8ZX Excision of Large Intestine, Via Natural or Artificial Opening Endoscopic, Diagnostic (ICD-10-PCS; 2017-06-26)
PROC: 0DBB8ZX Excision of Ileum, Via Natural or Artificial Opening Endoscopic, Diagnostic (ICD-10-PCS; principal; 2017-06-26 10:40)
DX: K50.912 Crohn's disease, unspecified, with intestinal obstruction (principal); K63.3 Ulcer of intestine; F17.210 Nicotine dependence, cigarettes, uncomplicated; Z82.0 Family history of epilepsy and other diseases of the nervous system; F12.90 Cannabis use, unspecified, uncomplicated; F43.23 Adjustment disorder with mixed anxiety and depressed mood
CPT/HCPCS: 36569; 74018; 74019; 74176; 74177; 74250; 74270; 76937; 80048; 80053; 81001; 82607; 82728; 82784; 82948; 83516; 83540; 83605; 83690; 83735; 85025; 85652; 86140; 86480; 87340; 87517; 88305; 96361; 96365; 96375; J0744; J1170; J1642; J1745; J1885; J2060; J2250; J2270; J2405; J2543; J2920; J3480; J7030; J7050; J7120; J7512; Q9963; Q9967